=== PATIENT | male | born 1950 | race Caucasian/White ===

== ENCOUNTER 2016-05-28 06:47 | Inpatient (IN) | payer MEDICARE, OTHER ==
[~2016-05-28] VITALS: Ht 182.9 cm; Wt 90.9 kg
[2016-05-28] VITALS (10 sets, daily range): BP systolic 143–211; BP diastolic 85–123; PULSE 73–96; RESP 15–32; TEMP 97.9–98.7; O2SAT 93–98
[2016-05-28] MEDS ORDERED: SODIUM CHLORIDE 0.9% FLUSH 5 ML FLUSH IVF PRN ×2 (07:00→11:00)
[2016-05-28 07:21] LABS: AUTOMATED NEUTROPHIL # 5.5 TH/MM3 (1.8-7.7); BASOPHIL % 0.4 % (0.0-2.0); EOSINOPHIL # 0.1 TH/MM3 (0-0.4); HEMATOCRIT 48.7 % (39.0-51.0); HEMO FLAGS DIFF FINAL; LYMPH % 18.1 % (9.0-44.0); LYMPHOCYTE # 1.4 TH/MM3 (1.0-4.8); MEAN CELL VOLUME 87.6 FL (80.0-100.0); MEAN CORPUSCULAR HEMOGLOBIN 30.9 PG (27.0-34.0); MEAN CORPUSCULAR HGB CONC 35.3 % (32.0-36.0); MONO % 8.9 % (0.0-8.0); NEUT % 71.6 % (16.0-70.0); PLATELET COUNT 210 TH/MM3 (150-450); RED BLOOD COUNT 5.56 MIL/MM3 (4.50-5.90); RED CELL DISTRIBUTION WIDTH 13.2 % (11.6-17.2); WHITE BLOOD COUNT 7.7 TH/MM3 (4.0-11.0)
--- NOTE | 2016-05-28 07:22 | PD ---
HPI Chief Complaint: Neuro Symptoms/ Deficits Time Seen by Provider: 07:19 Travel History International Travel<30 days: No Contact w/Intl Traveler<30days: No Traveled to known affect area: No History of Present Illness HPI 66-year-old male with history of no significant past medical issues, presents to the ER today because he states that he started having slurred speech at 7 PM last night, at first thought it was because of alcohol use, but states that it is still going on this morning. He has had trouble walking due to balance issues, has noticed right arm weakness and right facial droop. He denies any chest pains, trouble breathing, or any other issues. He does not know any exacerbating or alleviating factors. Modifying Factors: None Associated Signs & Symptoms: Slurred speech, right arm weakness, facial droop starting last night Risk Factors: None PFSH Past Medical History Medical History: Denies Significant Hx Past Surgical History Surgical History: No Previous Surgery Social History Alcohol Use: Yes (2-3 vodka drinks/daily) Tobacco Use: Yes (1 ppd) Substance Use: Yes (occasional marijuana) Allergies-Medications (Allergen,Severity, Reaction): Coded Allergies: No Known Allergies (Unverified , 05/28/16) Review of Systems Except as stated in HPI: all other systems reviewed are Neg Physical Exam Narrative GENERAL: Well-nourished, well-developed elderly white male patient in no acute distress. Awake, alert, oriented 3. SKIN: Warm and dry. HEAD: Normocephalic. EYES: No scleral icterus. No injection or drainage. NECK: Supple, trachea midline. CARDIOVASCULAR: Regular rate and rhythm without murmurs, gallops, or rubs. RESPIRATORY: Breath sounds equal bilaterally. No accessory muscle use. GASTROINTESTINAL: Abdomen soft, non-tender, nondistended. MUSCULOSKELETAL: No cyanosis, or edema. BACK: Nontender without obvious deformity. No CVA tenderness. NEUROLOGICAL: Awake and alert, oriented 3. Right facial droop. Right arm pronator drift. Slurred Speech. Data Data Last Documented VS Vital Signs Date Time Temp Pulse Resp B/P Pulse Ox O2 Delivery O2 Flow Rate FiO2 05/28/16 07:57 87 18 187/101 96 Room Air 05/28/16 06:52 98.0 Orders Electrocardiogram (05/28/16 06:59) Prothrombin Time / Inr (Pt) (05/28/16 06:59) Act Partial Throm Time (Ptt) (05/28/16 06:59) Complete Blood Count With Diff (05/28/16 06:59) Comprehensive Metabolic Panel (05/28/16 06:59) Creatine Kinase (Cpk) (05/28/16 06:59) Drug Screen, Random Urine (05/28/16 06:59) Troponin I (05/28/16 06:59) Ct Brain W/O Iv Contrast(Rout) (05/28/16 06:59) Chest, Single Ap (05/28/16 06:59) Ecg Monitoring (05/28/16 06:59) Iv Access Insert/Monitor (05/28/16 06:59) Oximetry (05/28/16 06:59) Sodium Chloride 0.9% Flush (Ns Flush) (05/28/16 07:00) Alcohol (Ethanol) (05/28/16 06:59) Aspirin (Aspirin) (05/28/16 07:45) Admit Order (Ed Use Only) (05/28/16 09:48) Labs Laboratory Tests Test 05/28/16 07:05 White Blood Count 7.7 TH/MM3 Red Blood Count 5.56 MIL/MM3 Hemoglobin 17.2 GM/DL Hematocrit 48.7 % Mean Corpuscular Volume 87.6 FL Mean Corpuscular Hemoglobin 30.9 PG Mean Corpuscular Hemoglobin 35.3 % Concent Red Cell Distribution Width 13.2 % Platelet Count 210 TH/MM3 Mean Platelet Volume 9.1 FL Neutrophils (%) (Auto) 71.6 % Lymphocytes (%) (Auto) 18.1 % Monocytes (%) (Auto) 8.9 % Eosinophils (%) (Auto) 1.0 % Basophils (%) (Auto) 0.4 % Neutrophils # (Auto) 5.5 TH/MM3 Lymphocytes # (Auto) 1.4 TH/MM3 Monocytes # (Auto) 0.7 TH/MM3 Eosinophils # (Auto) 0.1 TH/MM3 Basophils # (Auto) 0.0 TH/MM3 CBC Comment DIFF FINAL Differential Comment Prothrombin Time 11.5 SEC Prothromb Time International 1.0 RATIO Ratio Activated Partial 27.9 SEC Thromboplast Time Sodium Level 137 MEQ/L Potassium Level 3.9 MEQ/L Chloride Level 102 MEQ/L Carbon Dioxide Level 24.6 MEQ/L Anion Gap 10 MEQ/L Blood Urea Nitrogen 14 MG/DL Creatinine 1.05 MG/DL Estimat Glomerular Filtration 70 ML/MIN Rate Random Glucose 312 MG/DL Calcium Level 8.4 MG/DL Total Bilirubin 0.7 MG/DL Aspartate Amino Transf 10 U/L (AST/SGOT) Alanine Aminotransferase 20 U/L (ALT/SGPT) Alkaline Phosphatase 88 U/L Total Creatine Kinase 47 U/L Troponin I 0.02 NG/ML Total Protein 6.9 GM/DL Albumin 3.7 GM/DL Ethyl Alcohol Level LESS THAN 3 MG/DL MDM Medical Decision Making Medical Screen Exam Complete: Yes Emergency Medical Condition: Yes Medical Record Reviewed: Yes Interpretation(s) EKG shows NSR, no ST elevation or depression, and no arrhythmias. No significant T-wave inversions. Laboratory Tests Test 05/28/16 07:05 Hemoglobin 17.2 GM/DL (13.0-17.0) Neutrophils (%) (Auto) 71.6 % (16.0-70.0) Monocytes (%) (Auto) 8.9 % (0.0-8.0) Estimat Glomerular Filtration 70 ML/MIN (>89) Rate Random Glucose 312 MG/DL (74-106) Calcium Level 8.4 MG/DL (8.5-10.1) Aspartate Amino Transf 10 U/L (15-37) (AST/SGOT) Last [address] 05/28/16 0600 Signed Impressions: Service Date/Time: Saturday, May 28, 2016 07:22 - CONCLUSION: Slight atrophic and small vessel ischemic changes without any evidence for acute hemorrhage or mass effect. Zi Joseph MD Chest X-Ray 05/28/16 0659 Signed Impressions: Service Date/Time: Saturday, May 28, 2016 08:06 - CONCLUSION: 1. No acute pulmonary infiltrates 2. Compensated cardiomegaly. Kulwinder Crane MD Differential Diagnosis Facial asymmetry, slurred speech, right arm weaknessCVA versus acute intracranial bleed versus metabolic issues Narrative Course Patient has obvious right facial droop and right arm pronator drift. CAT scan did not show any signs of acute intracranial processes and aspirin was given in the ER. At this point, case is discussed with Dr. Mendez for admission for further evaluation and treatment. Patient is not a TPA candidate since symptoms started last night. Diagnosis Primary Impression: CVA (cerebral vascular accident) Admitting Information Admitting Physician Requests: Admit Rehan Winter MD May 28, 2016 07:22
[2016-05-28 07:32] LABS: APTT (PATIENT) 27.9 SEC (24.3-30.1); PROTHROMBIN TIME - PATIENT 11.5 SEC (9.8-11.6)
[2016-05-28 07:33] LABS: ANION GAP 10 MEQ/L (5-15)
[2016-05-28 07:37] LABS: ALKALINE PHOSPHATASE 88 U/L (45-117); ALT (GPT) 20 U/L (12-78); AST (GOT) 10 U/L (15-37); BICARBONATE 24.6 MEQ/L (21.0-32.0); BLOOD UREA NITROGEN 14 MG/DL (7-18); CHLORIDE 102 MEQ/L (98-107); GLOMERULAR FILTRATION RATE 70 ML/MIN (>89); POTASSIUM 3.9 MEQ/L (3.5-5.1); SODIUM (NA) 137 MEQ/L (136-145); TOTAL BILIRUBIN ADULT 0.7 MG/DL (0.2-1.0)
--- NOTE | 2016-05-28 07:38 | RADRPT ---
EXAM DATE/TIME: 05/28/2016 07:22 [facility] COMPARISON: No previous studies available for comparison. INDICATIONS : Right facial droop with slurred speech. RADIATION DOSE: 56.35 CTDIvol (mGy) MEDICAL HISTORY : None SURGICAL HISTORY : None. ENCOUNTER: Initial ACUITY: 1 day PAIN SCALE: 0/10 LOCATION: cranial TECHNIQUE: Multiple contiguous axial images were obtained of the head. Using automated exposure control and adj ustment of the mA and/or kV according to patient size, radiation dose was kept as low as reasonably a chievable to obtain optimal diagnostic quality images. FINDINGS: There is no evidence for intracranial hemorrhage, mass effect, mass lesions, or edema. The visualize d bony structures appear intact. Slight degree of brain atrophy is seen. Slight periventricular whit e matter changes are seen nonspecific mostly consistent with chronic small vessel ischemic changes. There are no signs of acute infarction for technique. There is also chronic basal ganglia calcificati ons which extend down into the midportion of the mariya. CONCLUSION: Slight atrophic and small vessel ischemic changes without any evidence for acute hemorrhage or mass effect. Zi Joseph MD on May 28, 2016 at 7:35 Board Certified Radiologist. This report was verified electronically.
[2016-05-28 07:41] LABS: CREATINE KINASE 47 U/L (39-308)
[2016-05-28] MEDS ORDERED: ASPIRIN 325 MG TAB PO ONE (07:45)
--- NOTE | 2016-05-28 09:04 | RADRPT ---
EXAM DATE/TIME: 05/28/2016 08:06 [facility] COMPARISON: No previous studies available for comparison. INDICATIONS : Slurred speech, syncope, evaluate for CVA. MEDICAL HISTORY : Smoker. SURGICAL HISTORY : None. ENCOUNTER: Initial ACUITY: 2 days PAIN SCORE: 0/10 LOCATION: Bilateral chest FINDINGS: A single view of the chest demonstrates the lungs to be symmetrically aerated without evidence of mas s, infiltrate or effusion. The heart size is enlarged. The bony structures are grossly intact. There no prior studies for comparison.. CONCLUSION: 1. No acute pulmonary infiltrates 2. Compensated cardiomegaly. Kulwinder Crane MD on May 28, 2016 at 9:02 Board Certified Radiologist. This report was verified electronically.
[2016-05-28] MEDS ORDERED: DEXTROSE 50% IN WATER 50 ML VIAL(D50) IV PUSH PRN (11:00)
[2016-05-28] MEDS ORDERED: GLUCAGON 1 MG/ML VIAL OTHER PRN (11:00)
[2016-05-28] MEDS: SODIUM CHLOR 0.9% 1000 ML INJ 1,000 ML IV SCH (11:33)
[2016-05-28] MEDS: HEPARIN SODIUM - SQ 10,000 UNITS/ML VIAL SQ SCH ×2 (11:34→18:17)
[2016-05-28] MEDS: INSULIN ASPART SUPPLEMENTAL SCALE SQ SCH ×3 (11:34→20:20)
--- NOTE | 2016-05-28 14:35 | RADRPT ---
EXAM DATE/TIME: 05/28/2016 13:11 [facility] COMPARISON: No previous studies available for comparison. INDICATIONS: Slurred speech. Right side weakness. MEDICAL HISTORY: None. SURGICAL HISTORY: Umbilical hernia repair. ENCOUNTER: Initial ACUITY: 1 day PAIN SCORE: 0/10 LOCATION: Cranial TECHNIQUE: Multiplanar, multisequence MRI of the brain was performed without contrast. FINDINGS: Study is abnormal. There is a focal area of restricted diffusion in the brain stem, brachium pontis left side. The supratentorial brain is unremarkable. There is no parenchymal hemorrhage identified. There are no extraaxial fluid collections appreciated. Orbits and paranasal sinuses visualized are unremarkable. CONCLUSION: Focal area of ischemic brain stem, brachium pontis left side measuring 1.3 cm. This has the appearan ce of an evolving brain stem lacunar infarct. There is no parenchymal hemorrhage. Boy Vaca MD FACR on May 28, 2016 at 14:12 Board Certified Radiologist. This report was verified electronically.
--- NOTE | 2016-05-28 14:40 | RADRPT ---
EXAM DATE/TIME: 05/28/2016 13:11 [facility] COMPARISON: MRI BRAIN W/O CONTRAST, May 28, 2016, 13:11. INDICATIONS: Slurred speech. Right side weakness. MEDICAL HISTORY: None. SURGICAL HISTORY: Umbilical hernia repair. ENCOUNTER: Initial ACUITY: 1 day PAIN SCORE: 0/10 LOCATION: Cranial Please note a normal MRA of the brain does not entirely exclude the possibility of a small aneurysm, nor the possibility of distal intracranial vessel disease. TECHNIQUE: 3D time of flight MRA was performed. Source images, multiplanar STS MIP, and 3D volume MIP reconstru ctions were reviewed. FINDINGS: Extensive atherosclerotic vascular disease is evident. There is poor filling of the M1, M2 bifurcatio n on the left. Distal branches are filled. Both anterior cerebellar arteries and right middle cerebellar are identified. The left vertebral is small and diminutive. The right is normal in size. Basilar artery is patent. There is poor visualization of the right internal carotid through the skull base. I am not sure if t hat is artifactual or stenotic. CONCLUSION: 1. Abnormal MRA of the brain as described above. 2. In spite of the findings on the MRI of the brain the basilar artery is well preserved. Boy Vaca MD FACR on May 28, 2016 at 14:34 Board Certified Radiologist. This report was verified electronically.
[2016-05-28] MEDS ORDERED: ENALAPRILAT 1.25 MG/ML VIAL IV PRN (14:45)
[2016-05-28] MEDS ORDERED: LABETALOL HCL 100 MG/20 ML VIAL IV PRN (14:45)
--- NOTE | 2016-05-28 15:43 | HHI.HP ---
[facility] Service [facility] Primary Care Physician No Primary Care Physician Admission Diagnosis CVA Diagnoses: Chief Complaint: Slurred speech, right facial droop, right arm weakness Travel History International Travel<30 Days: No Contact w/Intl Traveler <30 Da: No Traveled to Known Affected Are: No History of Present Illness 66 years old male with no significant past medical history presented to the ED complaining of symptoms of right facial droop, slurred speech, unsteadiness and some weakness in the right arm since yesterday 7 PM. Patient admitted drinking alcohol with his friends therefore he thought he was "tipsy " However later on he noticed that this is something not normal and he came to the ED. Patient denied any headache blurry vision, chest pain short of breath abdominal pain diarrhea or constipation, recent sore throat, he is not on any blood thinner, he doesn't have a history of heart attack coronary artery disease , cardiac arrhythmia, or previous stroke. He smoked one pack per day for over 20 years, he denied illicit drug abuse, he drinks 3 vodkas every day with dinner. In ED patient was given aspirin, CT of the head did not show any hemorrhage Review of Systems All 10 systems reviewed and was positive for what is mentioned in history of present illness otherwise negative Past Family Social History Past Medical History Patient not aware of any previous medical problem Past Surgical History Not aware of previous surgery Allergies: Coded Allergies: No Known Allergies (Unverified , 06/04/16) Family History Coronary artery disease and stroke in his mother and father Social History Smoke one pack per day for over 20 years, drinks 2-3 vodkas every day with dinner, there is mentioning history of marijuana in the ED note patient denied to me Physical Exam Vital Signs Vital Signs Date Time Temp Pulse Resp B/P Pulse Ox O2 Delivery O2 Flow Rate FiO2 05/28/16 15:08 82 17 155/91 96 Room Air 05/28/16 13:59 75 17 180/111 96 Room Air 05/28/16 11:00 90 17 174/87 96 Room Air 05/28/16 10:20 80 17 143/86 96 Room Air 05/28/16 07:57 87 18 187/101 96 Room Air 05/28/16 07:10 85 16 211/100 98 Room Air 05/28/16 06:55 18 96 05/28/16 06:52 98.0 96 15 181/123 93 Physical Exam GENERAL: This is a well-nourished, well-developed patient, in no apparent distress. SKIN: No rashes, warm and dry HEAD: Atraumatic. Normocephalic. EYES: Pupils equal round and reactive. Extraocular motions intact. No scleral icterus. ENT: Nose without bleeding, or drainage, Airway patent. NECK: Trachea midline. Supple CARDIOVASCULAR: Regular rate and rhythm without murmurs, gallops, or rubs. RESPIRATORY: Fair air entry bilaterally. No wheezes, rales, or rhonchi. GASTROINTESTINAL: Abdomen soft, non-tender, nondistended. Positive bowel sounds MUSCULOSKELETAL: Extremities without clubbing, cyanosis, or edema. Pedal pulses appreciated NEUROLOGICAL: Awake and alert oriented 3, cranial nerve intact except right facial droop, right upper extremity 3 out of 5, left upper and bilateral lower extremity 5 out of 5, finger to nose positive on the right side, sensation intact, speech is slightly slurred and grappled but understandable Laboratory Laboratory Tests Test 05/28/16 05/28/16 07:05 11:57 White Blood Count 7.7 Red Blood Count 5.56 Hemoglobin 17.2 Hematocrit 48.7 Mean Corpuscular Volume 87.6 Mean Corpuscular Hemoglobin 30.9 Mean Corpuscular Hemoglobin 35.3 Concent Red Cell Distribution Width 13.2 Platelet Count 210 Mean Platelet Volume 9.1 Neutrophils (%) (Auto) 71.6 Lymphocytes (%) (Auto) 18.1 Monocytes (%) (Auto) 8.9 Eosinophils (%) (Auto) 1.0 Basophils (%) (Auto) 0.4 Neutrophils # (Auto) 5.5 Lymphocytes # (Auto) 1.4 Monocytes # (Auto) 0.7 Eosinophils # (Auto) 0.1 Basophils # (Auto) 0.0 CBC Comment DIFF FINAL Differential Comment Prothrombin Time 11.5 Prothromb Time International 1.0 Ratio Activated Partial 27.9 Thromboplast Time Sodium Level 137 Potassium Level 3.9 Chloride Level 102 Carbon Dioxide Level 24.6 Anion Gap 10 Blood Urea Nitrogen 14 Creatinine 1.05 Estimat Glomerular Filtration 70 Rate Random Glucose 312 Calcium Level 8.4 Total Bilirubin 0.7 Aspartate Amino Transf 10 (AST/SGOT) Alanine Aminotransferase 20 (ALT/SGPT) Alkaline Phosphatase 88 Total Creatine Kinase 47 45 Troponin I 0.02 0.02 Total Protein 6.9 Albumin 3.7 Ethyl Alcohol Level LESS THAN 3 Result Diagram: 05/28/1670405/28/16704 Imaging Last Impressions Head CT 05/28/16658 Signed Impressions: Service Date/Time: Saturday, May 28, 2016 07:22 - CONCLUSION: Slight atrophic and small vessel ischemic changes without any evidence for acute hemorrhage or mass effect. Zi Joseph MD Chest X-Ray 05/28/16658 Signed Impressions: Service Date/Time: Saturday, May 28, 2016 08:06 - CONCLUSION: 1. No acute pulmonary infiltrates 2. Compensated cardiomegaly. Kulwinder Crane MD EKG shows NSR, no ST elevation or depression, and no arrhythmias. No significant T-wave inversions. Assessment and Plan Assessment and Plan 66 years old male presented with right arm weakness, right facial droop and slurred speech Rule out acute ischemic stroke Give aspirin 325, bedrest with HOB, iv fluid Serial NIH scale I ordered MRI/MRA of the brain, 2-D echo, ultrasound of the carotid Neurology consultation FLP in a.m. Permissive hypertension, Vasotec labetalol for blood pressure above 220/110 Heparin subcutaneous every 8 hours Pravachol Cycle cardiac enzyme Her under telemetry rule out underlying cardiac arrhythmia CT head personally reviewed by me no hemorrhage Consult PT OT Consult case coordinator Tobacco abuse counseled Alcohol abuse: Apply CIWA protocol, folate acid and thiamine Hypertension: A low permissive hypertension due to highly suspicious symptom of acute stroke Addendum: I personally reviewed MRI/MRA of the brain positive lacunar infarct in the brainstem MRA Carotid Artery Ultrasound There is moderate calcified atherosclerotic changes involving the right carotid bifurcation. There is elevated velocity in the right internal carotid artery suggestive of moderate stenosis. If clinically indicated, recommend CTA of the carotids. 2. Nonspecific enlarged right neck lymph node. The lymph node measures approximately 1.6 cm. 3. Mild atherosclerotic plaquing at the left carotid bifurcation. No focal high grade hemodynamically significant stenosis. Brain MRI Focal area of ischemic brain stem, brachium pontis left side measuring 1.3 cm. This has the appearance of an evolving brain stem lacunar infarct. There is no parenchymal hemorrhage. Further recommendation per neurology, CTA versus MRA of the neck deferred to neurology Discussed Condition With ED physician patient Physician Certification 2 Midnight Certification Type: Admission for Inpatient Services Order for Inpatient Services The services are ordered in accordance with Medicare regulations or non- Medicare payer requirements, as applicable. In the case of services not specified as inpatient-only, they are appropriately provided as inpatient services in accordance with the 2-midnight benchmark. Estimated LOS (days): 3 days is the estimated time the patient will need to remain in the hospital, assuming treatment plan goals are met and no additional complications. Post-Hospital Plan: Not yet determined Naima Mendez MD May 28, 2016 15:43
--- NOTE | 2016-05-28 16:52 | RADRPT ---
EXAM DATE/TIME: 05/28/2016 15:46 [facility] COMPARISON: No previous studies available for comparison. INDICATIONS : Cerebrovascular accident. MEDICAL HISTORY : Slurred speech, right arm weakness and facial droop starting last night. SURGICAL HISTORY : None. ENCOUNTER: Initial ACUITY: 1 day PAIN SCORE: 0/10 LOCATION: Bilateral neck PEAK SYSTOLIC VELOCITIES (cm/sec): ICA/CCA RATIO: Right: 3.4 Left: 0.9 ICA: Right: 195 Left: 63 CCA: Right: 58 Left: 69 ECA: Right: 83 Left: 91 VERTEBRAL: Right: 45 antegrade Left: 54 antegrade Elevated flow velocities and ICA/CCA ratios have been found to correlate with increased degrees of vessel stenosis, calculated as percentage of diameter relative to a normal segment of distal ICA/CCA FINDINGS: RIGHT CAROTID: Moderate calcified atherosclerotic plaquing at the right carotid bifurcation. There is flow in both t he internal and external vessels. The velocity in the right internal carotid artery is elevated. This is suggestive of a moderate stenosis. Also noted is a prominent lymph node in the right side of the neck measuring 1.6 cm. LEFT CAROTID: Mild atherosclerotic changes. No significant stenosis is visualized. The waveforms are within normal limits. VERTEBRAL ARTERIES: Antegrade flow is seen in both vertebral arteries. MISCELLANEOUS: None. CONCLUSION: 1. There is moderate calcified atherosclerotic changes involving the right carotid bifurcation. There is elevated velocity in the right internal carotid artery suggestive of moderate stenosis. If clinic ally indicated, recommend CTA of the carotids. 2. Nonspecific enlarged right neck lymph node. The lymph node measures approximately 1.6 cm. 3. Mild atherosclerotic plaquing at the left carotid bifurcation. No focal high grade hemodynamically significant stenosis. Kulwinder Crane MD on May 28, 2016 at 16:48 Board Certified Radiologist. This report was verified electronically.
--- NOTE | 2016-05-28 17:16 | EKG ---
Date Performed: 05/28/2016 Time Performed: 06:52:28 PTAGE: 66 years EKG: Sinus rhythm POSSIBLE LEFT ATRIAL ENLARGEMENT INFERIOR MYOCARDIAL INFARCTION ABNORMAL ECG NO PREVIOUS TRACING DOCTOR: Cata Escalera Interpretating Date/Time 05/28/2016 17:14:43
[2016-05-28] MEDS ORDERED: LORazepam 2 MG TAB PO PRN (17:30)
[2016-05-28] MEDS ORDERED: LORazepam 1 MG TAB PO PRN (17:30)
[2016-05-28] MEDS ORDERED: LORazepam 2 MG/ML VIAL IV PUSH PRN ×4 (17:30)
[2016-05-28] MEDS: THIAMINE HCL 100 MG TAB PO SCH (18:17)
--- NOTE | 2016-05-28 18:43 | MB ---
cc: DOUGLAS EDMOND MD DATE OF CONSULTATION 05/28/16 DATE OF 1950 REASON FOR CONSULTATION Stroke. HISTORY OF PRESENT ILLNESS This patient is a 66-year-old man with no significant past medical history as far as he knows. He comes in with right-sided facial droop, right arm and leg weakness. It started the night before admission, he woke up, it was worse. He thought it was due to alcohol use. He is unable to coordinate his hand and arm as well as his legs, still has slurring of speech and right facial droop. Denies chest pain, shortness of breath, nausea, vomiting, diarrhea. PAST MEDICAL HISTORY He has no significant past medical history. PAST SURGICAL HISTORY No surgical history. SOCIAL HISTORY Drinks two to three shots of vodka a day. Smokes a pack a day, some marijuana on occasion. He is . ALLERGIES None. MEDICATIONS None PHYSICAL EXAMINATION VITAL SIGNS: Temperature 98, pulse 82, respiratory rate 17, blood pressure 155/91, satting at 96% room air. NECK: Supple. No bruits. HEART: Regular. LUNGS: Appear clear. He is awake and alert. Pupils reactive. Visual estrada are full. He is dysarthric. Right facial droop, right hemiparesis. There is a 3+ to 4-/5 with right toe upgoing. He is weaker in the full time staff interpreter. He cannot do [id number] on the right but can do it on the left. DTRs are symmetrical. Sensory is normal. Gait is withheld. He is at bedrest. LABORATORY DATA Reviewed. Hemoglobin of 17.2. Chemistries - GFR 70, glucose 312, calcium 8.4, AST 10, ALT 20, cardiac enzymes were negative. Coag panel unremarkable. Toxicology - ethanol level less than three. IMAGING STUDIES MRI of the brain shows focal area of ischemia in the brain stem brachium pontis on the left side measuring 1.3 cm. This is acute, no hemorrhage. His MRA [place] [facility] [place] did not show any significant stenosis especially in the basilar artery, but he did have arteriosclerotic disease, poor filling in M1, M2 on the left, left vertebral is smaller, right is normal in size, basilar artery is patent. Carotid ultrasound was just done. It is not ready to be interpreted thus far unfortunately. IMPRESSION 1. A 66 year-old man with right hemiparesis due to left brainstem infarct 2. Hypertension. 3. Alcohol use. 4. Chronic smoker. RECOMMENDATIONS Put him on full dose aspirin, bedrest today. Start him on a statin but get a lipid panel, blood pressure for systolic over 220, diastolic 110. He can use Vasotec injectable, labetalol p.r.n. Accu-Chek with insulin sliding scale. Get a hemoglobin A1c. SCDs and heparin subcu for DVT prophylaxis. PT, OT, speech therapy evaluation. Risk factors discussed with the patient, watch him for any alcohol withdrawal. He states he has never had withdrawal from alcohol in the past and further recommendations will be made accordingly. MD ROSS Walker/ /4:54 PM /6:27 PM
--- NOTE | 2016-05-28 19:02 | EC ---
Study Study Date:05/28/2016 STUDY CONCLUSIONS SUMMARY LEFT VENTRICLE: The cavity size was normal. Wall thickness was normal. Systolic function was moderately to severely reduced. The estimated ejection fraction was in the range of 30% to 35%. Wall motion was normal; there were no regional wall motion abnormalities. If LV function is below 40, please consider prescribing an ACEI or ARB or document rationale for non-use. PROCEDURE DATA STUDY STATUS: Elective. Procedure: Transthoracic echocardiography. Image quality was good. Scanning was performed from the parasternal, apical, and subcostal acoustic windows. Study completion: The patient tolerated the procedure well. Transthoracic echocardiography. M-mode, complete 2D, complete spectral Doppler, and color Doppler. Patient status: Inpatient. CARDIAC ANATOMY LEFT VENTRICLE: no definate apical thrombus, but can not r/o apical thrombus The cavity size was normal. Wall thickness was normal. Systolic function was moderately to severely reduced. The estimated ejection fraction was in the range of 30% to 35%. Wall motion was normal; there were no regional wall motion abnormalities. AORTIC VALVE: Trileaflet; normal thickness leaflets. Doppler: Transvalvular velocity was within the normal range. There was no stenosis. No regurgitation. AORTA: Aortic root: The aortic root was normal in size. MITRAL VALVE: Structurally normal valve. Doppler: Transvalvular velocity was within the normal range. There was no evidence for stenosis. No regurgitation. LEFT ATRIUM: The atrium was normal in size. RIGHT VENTRICLE: The cavity size was normal. Wall thickness was normal. PULMONIC VALVE: Doppler: Transvalvular velocity was within the normal range. There was no evidence for stenosis. No regurgitation. TRICUSPID VALVE: Structurally normal valve. Doppler: Transvalvular velocity was within the normal range. No regurgitation. PULMONARY ARTERY: The main pulmonary artery was normal-sized. Systolic pressure was within the normal range. RIGHT ATRIUM: The atrium was normal in size. PERICARDIUM: There was no pericardial effusion. SYSTEMIC VEINS: Inferior vena cava: The vessel was normal in size. Prepared and signed by Cm Jones [id number]
[2016-05-28] MEDS: ATORVASTATIN 10 MG TAB PO SCH (20:20)
[2016-05-28] MEDS: SODIUM CHLORIDE 0.9% FLUSH 5 ML FLUSH IVF SCH (20:21)
[2016-05-29] VITALS (7 sets, daily range): BP systolic 115–164; BP diastolic 58–103; PULSE 55–103; RESP 16–30; TEMP 95.5–98; O2SAT 94–98
[2016-05-29] MEDS: SODIUM CHLOR 0.9% 1000 ML INJ 1,000 ML IV SCH (00:52)
[2016-05-29 01:30] LABS: CREATINE KINASE 61 U/L (39-308)
[2016-05-29] MEDS: HEPARIN SODIUM - SQ 10,000 UNITS/ML VIAL SQ SCH ×3 (02:49→18:06)
[2016-05-29] MEDS: INSULIN ASPART SUPPLEMENTAL SCALE SQ SCH ×4 (06:04→21:28)
[2016-05-29 07:32] LABS: PROTHROMBIN TIME - PATIENT 11.2 SEC (9.8-11.6)
[2016-05-29 07:58] LABS: POTASSIUM 3.6 MEQ/L (3.5-5.1)
[2016-05-29 08:00] LABS: INDIRECT BILIRUBIN 0.7 MG/DL (0.0-0.8); TOTAL BILIRUBIN ADULT 0.8 MG/DL (0.2-1.0)
[2016-05-29] MEDS: SODIUM CHLORIDE 0.9% FLUSH 5 ML FLUSH IVF SCH ×2 (10:03→21:29)
[2016-05-29] MEDS: ASPIRIN 325 MG TAB PO SCH (10:03)
[2016-05-29] MEDS: THIAMINE HCL 100 MG TAB PO SCH (10:03)
--- NOTE | 2016-05-29 12:07 | HHI.PR ---
Subjective Remarks Follow-up ischemic stroke 05/29/16-patient seen and examined; stable and no complaint. Objective Vitals Vital Signs Date Time Temp Pulse Resp B/P Pulse Ox O2 Delivery O2 Flow Rate FiO2 05/29/16 08:13 95.5 79 20 154/94 95 05/29/16 00:00 160/100 05/29/16 00:00 97.8 55 16 115/58 98 05/29/16 00:00 97.8 77 30 164/103 96 05/28/16 20:00 89 05/28/16 20:00 98.7 92 32 153/92 93 05/28/16 17:04 98.0 73 18 180/85 97 05/28/16 15:08 82 17 155/91 96 Room Air 05/28/16 13:59 75 17 180/111 96 Room Air I/O 05/28/16 05/28/16 05/28/16 05/29/16 05/29/16 05/29/16 07:00 15:00 23:00 07:00 15:00 23:00 Intake Total 1102 ml Output Total 200 ml Balance -200 ml 1102 ml Intake IV Total 1102 ml Output Urine Total 200 ml Result Diagram: 05/28/16 0705 05/29/16 0642 Imaging Last Impressions Head CT 05/28/16 0659 Signed Impressions: Service Date/Time: Saturday, May 28, 2016 07:22 - CONCLUSION: Slight atrophic and small vessel ischemic changes without any evidence for acute hemorrhage or mass effect. Zi Joseph MD Chest X-Ray 05/28/16 0659 Signed Impressions: Service Date/Time: Saturday, May 28, 2016 08:06 - CONCLUSION: 1. No acute pulmonary infiltrates 2. Compensated cardiomegaly. Kulwinder Crane MD Head Magnetic Resonance Angiography 05/28/16 0000 Signed Impressions: Service Date/Time: Saturday, May 28, 2016 13:11 - CONCLUSION: 1. Abnormal MRA of the brain as described above. 2. In spite of the findings on the MRI of the brain the basilar artery is well preserved. Boy Vaca MD FACR Carotid Artery Ultrasound 05/28/16 0000 Signed Impressions: Service Date/Time: Saturday, May 28, 2016 15:46 - CONCLUSION: 1. There is moderate calcified atherosclerotic changes involving the right carotid bifurcation. There is elevated velocity in the right internal carotid artery suggestive of moderate stenosis. If clinically indicated, recommend CTA of the carotids. 2. Nonspecific enlarged right neck lymph node. The lymph node measures approximately 1.6 cm. 3. Mild atherosclerotic plaquing at the left carotid bifurcation. No focal high grade hemodynamically significant stenosis. Kulwinder Crane MD Brain MRI 05/28/16 0000 Signed Impressions: Service Date/Time: Saturday, May 28, 2016 13:11 - CONCLUSION: Focal area of ischemic brain stem, brachium pontis left side measuring 1.3 cm. This has the appearance of an evolving brain stem lacunar infarct. There is no parenchymal hemorrhage. Boy Vaca MD FACR Objective Remarks GENERAL: NAD with slurred speech and left facial droop SKIN: Warm and dry. HEAD: Normocephalic. EYES: No scleral icterus. No injection or drainage. NECK: Supple, trachea midline. No JVD or lymphadenopathy. CARDIOVASCULAR: Regular rate and rhythm without murmurs, gallops, or rubs. RESPIRATORY: Breath sounds equal bilaterally. No accessory muscle use. GASTROINTESTINAL: Abdomen soft, non-tender, nondistended. MUSCULOSKELETAL: No cyanosis, or edema. RUE 3/5 weakness; RLE 3/5 BACK: Nontender without obvious deformity. No CVA tenderness. A/P Problem List: (1) CVA (cerebral vascular accident) ICD Code: I63.9 Status: Acute Assessment and Plan 66 years old male presented with CVA Rule out acute ischemic stroke On aspirin 325 Pravachol Serial NIH scale MRI/MRA of the brain, 2-D echo, ultrasound of the carotid Brain MRI with Focal area of ischemic brain stem, brachium pontis left side measuring 1.3 cm Neurology ff PT/OT/Speech therapy Permissive hypertension, Vasotec labetalol for blood pressure above 220/ 110...Start Lopressor 50mg BID on 05/30/16 Heparin subcutaneous every 8 hours Tobacco abuse counseled; declined Nicotine patch Impaired fasting glucose: A1c pending; continue with insulin sliding scale Alcohol abuse: Apply CIWA protocol, folate acid and thiamine Hypertension: A low permissive hypertension Kehinde Langley MD May 29, 2016 12:07
[2016-05-29] MEDS: ATORVASTATIN 10 MG TAB PO SCH (21:28)
[2016-05-30] VITALS (8 sets, daily range): BP systolic 131–149; BP diastolic 67–85; PULSE 69–80; RESP 17–20; TEMP 95.8–98.5; O2SAT 95–97
[2016-05-30] MEDS: HEPARIN SODIUM - SQ 10,000 UNITS/ML VIAL SQ SCH ×3 (01:40→18:13)
[2016-05-30] MEDS: INSULIN ASPART SUPPLEMENTAL SCALE SQ SCH ×4 (06:19→21:50)
[2016-05-30 08:35] LABS: PROTHROMBIN TIME - PATIENT 11.1 SEC (9.8-11.6)
[2016-05-30] MEDS: THIAMINE HCL 100 MG TAB PO SCH (08:46)
[2016-05-30] MEDS: LISINOPRIL 5 MG TAB PO SCH (08:46)
[2016-05-30] MEDS: ASPIRIN 325 MG TAB PO SCH (08:46)
[2016-05-30] MEDS: SODIUM CHLORIDE 0.9% FLUSH 5 ML FLUSH IVF SCH ×2 (08:47→21:49)
[2016-05-30] MEDS: METOPROLOL TARTRATE 50 MG TAB PO SCH ×2 (08:47→21:50)
[2016-05-30 09:54] LABS: HEMOGLOBIN A1a 0.9 %; HEMOGLOBIN A1b 2.5 %; HEMOGLOBIN LA1C 2.6 %; HEMOGLOBIN P3 4.7 %
[2016-05-30] MEDS ORDERED: IOHEXOL 350 MG/ML 10 ML VIAL (for RAD DIAG) IV ONE (10:39)
--- NOTE | 2016-05-30 11:15 | HHI.PR ---
Subjective Remarks Follow-up ischemic stroke 05/29/16-patient seen and examined; stable and no complaint. 05/30/16-patient seen and examined, No change and still with left facial droop and slurred speech. States, family will be coming from out of town and therefore patient will rather go home with home health care Objective Vitals Vital Signs Date Time Temp Pulse Resp B/P Pulse Ox O2 Delivery O2 Flow Rate FiO2 05/30/16 07:55 96.3 80 18 136/83 95 05/30/16 07:34 76 05/30/16 06:00 98.5 76 17 145/67 97 05/30/16 01:00 97.1 80 18 149/67 96 05/29/16 22:30 96.9 83 16 160/64 95 05/29/16 20:00 85 05/29/16 16:36 98.0 80 18 138/68 94 05/29/16 13:04 97.1 103 18 140/79 94 I/O 05/29/16 05/29/16 05/29/16 05/30/16 05/30/16 05/30/16 07:00 15:00 23:00 07:00 15:00 23:00 Intake Total 1102 ml 480 ml 850 ml 750 ml Output Total 700 ml Balance 1102 ml 480 ml 850 ml 50 ml Intake Oral 480 ml 850 ml 750 ml IV Total 1102 ml Output Urine Total 700 ml # Voids 4 1 # Bowel Movements 0 0 Result Diagram: 05/28/16 0705 05/29/16 0642 Imaging Last Impressions Head CT 05/28/16 0659 Signed Impressions: Service Date/Time: Saturday, May 28, 2016 07:22 - CONCLUSION: Slight atrophic and small vessel ischemic changes without any evidence for acute hemorrhage or mass effect. Zi Joseph MD Chest X-Ray 05/28/16 0659 Signed Impressions: Service Date/Time: Saturday, May 28, 2016 08:06 - CONCLUSION: 1. No acute pulmonary infiltrates 2. Compensated cardiomegaly. Kulwinder Crane MD Head Magnetic Resonance Angiography 05/28/16 0000 Signed Impressions: Service Date/Time: Saturday, May 28, 2016 13:11 - CONCLUSION: 1. Abnormal MRA of the brain as described above. 2. In spite of the findings on the MRI of the brain the basilar artery is well preserved. Boy Vaca MD FACR Carotid Artery Ultrasound 05/28/16 0000 Signed Impressions: Service Date/Time: Saturday, May 28, 2016 15:46 - CONCLUSION: 1. There is moderate calcified atherosclerotic changes involving the right carotid bifurcation. There is elevated velocity in the right internal carotid artery suggestive of moderate stenosis. If clinically indicated, recommend CTA of the carotids. 2. Nonspecific enlarged right neck lymph node. The lymph node measures approximately 1.6 cm. 3. Mild atherosclerotic plaquing at the left carotid bifurcation. No focal high grade hemodynamically significant stenosis. Kulwinder Crane MD Brain MRI 05/28/16 0000 Signed Impressions: Service Date/Time: Saturday, May 28, 2016 13:11 - CONCLUSION: Focal area of ischemic brain stem, brachium pontis left side measuring 1.3 cm. This has the appearance of an evolving brain stem lacunar infarct. There is no parenchymal hemorrhage. Boy Vcaa MD FACR Objective Remarks GENERAL: NAD with slurred speech and left facial droop SKIN: Warm and dry. HEAD: Normocephalic. EYES: No scleral icterus. No injection or drainage. NECK: Supple, trachea midline. No JVD or lymphadenopathy. CARDIOVASCULAR: Regular rate and rhythm without murmurs, gallops, or rubs. RESPIRATORY: Breath sounds equal bilaterally. No accessory muscle use. GASTROINTESTINAL: Abdomen soft, non-tender, nondistended. MUSCULOSKELETAL: No cyanosis, or edema. RUE 3/5 weakness; RLE 3/5 BACK: Nontender without obvious deformity. No CVA tenderness. A/P Problem List: (1) CVA (cerebral vascular accident) ICD Code: I63.9 Status: Acute Assessment and Plan 66 years old male presented with CVA Rule out acute ischemic stroke On aspirin 325 Pravachol Serial NIH scale MRI/MRA of the brain, 2-D echo, ultrasound of the carotid noted and reviewed pending CTA of the carotids 05/30/16 Brain MRI with Focal area of ischemic brain stem, brachium pontis left side measuring 1.3 cm Neurology ff PT/OT/Speech therapy Discontinue Permissive hypertension and Start Lopressor 50mg BID today Heparin subcutaneous every 8 hours Tobacco abuse counseled; declined Nicotine patch Impaired fasting glucose: A1c pending; continue with insulin sliding scale Alcohol abuse: Apply CIWA protocol, folate acid and thiamine Hypertension: Discontinue permissive hypertension, Lopressor as well as low- dose ramipril History of chronic systolic CHF: No exacerbation; 2-D echo with EF 30-35%, started on ramipril, continue beta ran as well as Statin Discharge Planning Discharge home 05/31/16 with home health care Kehinde Langley MD May 30, 2016 11:14
--- NOTE | 2016-05-30 20:59 | RADRPT ---
EXAM DATE/TIME: 05/30/2016 10:06 [facility] COMPARISON: US CAROTID ARTERIES, May 28, 2016, 15:46. INDICATIONS : Right facial droop, right arm and leg weakness. IV CONTRAST: 50 cc Omnipaque 350 (iohexol) IV RADIATION DOSE: 19.39 CTDIvol (mGy) MEDICAL HISTORY : None SURGICAL HISTORY : None. ENCOUNTER: Initial ACUITY: 2 days PAIN SCALE: 0/10 LOCATION: cranial TECHNIQUE: Volumetric scanning was performed using a multirow detector CT scanner. The data was post processed with a variety of visualization algorithms including full-volume maximum intensity projection, multip lanar sliding thin-slab reformation, curved-planar reformation, and surface-rendering techniques. Us ing automated exposure control and adjustment of the mA and/or kV according to patient size, radiatio n dose was kept as low as reasonably achievable to obtain optimal diagnostic quality images. FINDINGS: AORTIC ARCH: There is a three-vessel origin of the great vessels from the aorta. No evidence of ostial narrowing. RIGHT CAROTID: The common carotid artery is intact. Circumferential soft tissue plaque within the proximal internal carotid artery is seen causing 70% stenosis. The external carotid artery is intact. LEFT CAROTID: The common carotid artery is intact. Mild plaque within the left proximal internal carotid artery. No significant stenosis. The external carotid artery is intact. VERTEBRALS: The vertebral arteries have a symmetric diameter. No stenotic lesions are seen. CONCLUSION: 1. There is a 70% stenosis involving the right proximal internal carotid artery. 2. No significant stenosis of the left internal carotid artery. Kehinde Mckenzie MD on May 30, 2016 at 20:55 Board Certified Radiologist. This report was verified electronically.
[2016-05-30] MEDS: ATORVASTATIN 10 MG TAB PO SCH (21:50)
[2016-05-31] VITALS (8 sets, daily range): BP systolic 114–151; BP diastolic 61–94; PULSE 74–83; RESP 16–20; TEMP 96.1–97.2; O2SAT 94–96
[2016-05-31] MEDS: HEPARIN SODIUM - SQ 10,000 UNITS/ML VIAL SQ SCH ×3 (05:15→18:39)
[2016-05-31] MEDS: INSULIN ASPART SUPPLEMENTAL SCALE SQ SCH ×4 (06:47→20:23)
[2016-05-31 07:48] LABS: PROTHROMBIN TIME - PATIENT 10.9 SEC (9.8-11.6)
[2016-05-31] MEDS: ASPIRIN 325 MG TAB PO SCH (09:21)
[2016-05-31] MEDS: METOPROLOL TARTRATE 50 MG TAB PO SCH ×2 (09:21→20:20)
[2016-05-31] MEDS: LISINOPRIL 5 MG TAB PO SCH (09:22)
[2016-05-31] MEDS: THIAMINE HCL 100 MG TAB PO SCH (09:22)
[2016-05-31] MEDS: SODIUM CHLORIDE 0.9% FLUSH 5 ML FLUSH IVF SCH ×2 (09:24→20:21)
--- NOTE | 2016-05-31 11:24 | HHI.PR ---
Subjective Remarks Follow-up ischemic stroke 05/29/16-patient seen and examined; stable and no complaint. 05/30/16-patient seen and examined, No change and still with left facial droop and slurred speech. States, family will be coming from out of town and therefore patient will rather go home with home health care 05/31/16-patient seen and examined, stable and no acute event overnight. Case discussed with vascular surgeon Dr. Martinez regarding 70% stenosis right ICA Objective Vitals Vital Signs Date Time Temp Pulse Resp B/P Pulse Ox O2 Delivery O2 Flow Rate FiO2 05/31/16 08:00 96.7 83 20 140/80 96 05/31/16 06:03 97.0 76 17 114/61 94 05/31/16 00:00 96.1 78 17 151/94 94 05/30/16 22:11 71 05/30/16 20:00 97.3 79 20 136/71 96 05/30/16 16:00 96.2 70 18 143/85 95 05/30/16 12:16 95.8 69 18 131/81 96 I/O 05/30/16 05/30/16 05/30/16 05/31/16 05/31/16 05/31/16 07:00 15:00 23:00 07:00 15:00 23:00 Intake Total 750 ml 600 ml 480 ml Output Total 700 ml Balance 50 ml 600 ml 480 ml Intake Oral 750 ml 600 ml 480 ml Output Urine Total 700 ml # Voids 4 1 2 # Bowel Movements 0 1 0 0 Result Diagram: 05/28/16 0705 05/29/16 0642 Imaging Last Impressions Neck CTA 05/30/16 0000 Signed Impressions: Service Date/Time: Monday, May 30, 2016 10:06 - CONCLUSION: 1. There is a 70%% stenosis involving the right proximal internal carotid artery. 2. No significant stenosis of the left internal carotid artery. Kehinde Mckenzie MD Head CT 05/28/1659 Signed Impressions: Service Date/Time: Saturday, May 28, 2016 07:22 - CONCLUSION: Slight atrophic and small vessel ischemic changes without any evidence for acute hemorrhage or mass effect. Zi Joseph MD Chest X-Ray 05/28/1659 Signed Impressions: Service Date/Time: Saturday, May 28, 2016 08:06 - CONCLUSION: 1. No acute pulmonary infiltrates 2. Compensated cardiomegaly. Kulwinder Crane MD Head Magnetic Resonance Angiography 05/28/16 Signed Impressions: Service Date/Time: Saturday, May 28, 2016 13:11 - CONCLUSION: 1. Abnormal MRA of the brain as described above. 2. In spite of the findings on the MRI of the brain the basilar artery is well preserved. Boy Vaca MD FACR Carotid Artery Ultrasound 05/28/16 Signed Impressions: Service Date/Time: Saturday, May 28, 2016 15:46 - CONCLUSION: 1. There is moderate calcified atherosclerotic changes involving the right carotid bifurcation. There is elevated velocity in the right internal carotid artery suggestive of moderate stenosis. If clinically indicated, recommend CTA of the carotids. 2. Nonspecific enlarged right neck lymph node. The lymph node measures approximately 1.6 cm. 3. Mild atherosclerotic plaquing at the left carotid bifurcation. No focal high grade hemodynamically significant stenosis. Kulwinder Crane MD Brain MRI 05/28/16 Signed Impressions: Service Date/Time: Saturday, May 28, 2016 13:11 - CONCLUSION: Focal area of ischemic brain stem, brachium pontis left side measuring 1.3 cm. This has the appearance of an evolving brain stem lacunar infarct. There is no parenchymal hemorrhage. Boy Vaca MD FACR Objective Remarks GENERAL: NAD with slurred speech and left facial droop SKIN: Warm and dry. HEAD: Normocephalic. EYES: No scleral icterus. No injection or drainage. NECK: Supple, trachea midline. No JVD or lymphadenopathy. CARDIOVASCULAR: Regular rate and rhythm without murmurs, gallops, or rubs. RESPIRATORY: Breath sounds equal bilaterally. No accessory muscle use. GASTROINTESTINAL: Abdomen soft, non-tender, nondistended. MUSCULOSKELETAL: No cyanosis, or edema. RUE 3/5 weakness; RLE 3/5 BACK: Nontender without obvious deformity. No CVA tenderness. A/P Problem List: (1) CVA (cerebral vascular accident) ICD Code: I63.9 Status: Acute (2) Newly diagnosed diabetes ICD Code: E11.9 Status: Acute (3) Carotid stenosis, right ICD Code: I65.21 Status: Acute (4) Carotid stenosis, symptomatic, with infarction ICD Code: I63.239 Status: Acute (5) Hyperlipidemia ICD Code: E78.5 Status: Acute Assessment and Plan 66 years old male presented with CVA Acute ischemic stroke On aspirin 325 Lipitor 10mg daily Serial NIH scale MRI/MRA of the brain, 2-D echo, ultrasound of the carotid noted and reviewed Brain MRI with Focal area of ischemic brain stem, brachium pontis left side measuring 1.3 cm Neurology ff PT/OT/Speech therapy s/p Permissive hypertension and on Lopressor 50mg BID since 05/30/16 Heparin subcutaneous every 8 hours Right ICA 75% stenosis: Neck CTA noted and review by me with finding of There is a 70%% stenosis involving the right proximal internal carotid artery; for which vascular surgery was consulted and the case was discussed with Dr. Martinez. Continue with current treatment with aspirin, Pravachol. Tobacco abuse counseled; declined Nicotine patch Newly diagnosed diabetes type 2: A1c of 10.2, will start tonight 05/31/16 patient on Levemir 15 units at bedtime and continue with sliding scale insulin. senior data modeler nurse consulted. Hyperlipidemia: Continue Lipitor Alcohol abuse: Apply CIWA protocol, folate acid and thiamine Hypertension: On Lopressor as well as low-dose ramipril History of chronic systolic CHF: No exacerbation; 2-D echo with EF 30-35%, on ramipril, beta ran as well as Statin Discharge Planning Discharge home 05/31/16 with home health care Kehinde Langley MD May 31, 2016 11:24
[2016-05-31] MEDS ORDERED: ENALAPRILAT 1.25 MG/ML VIAL IV PUSH PRN (12:00)
--- NOTE | 2016-05-31 12:29 | HM ---
Date Performed: 05/28/2016 Time Performed: 21:41:00 HOOKUP DATE: 05/28/16 09:41:00 PM Fri ANALYSIS START TIME: 05/28/2016 9:46:00 PM ANALYSIS END TIME: 05/29/2016 9:49:59 PM PATIENT AGE: 66 PATIENT HEIGHT PATIENT WEIGHT DRUG LIST PATIENT DIAGNOSIS TEST NARRATIVE: The patient's average heart rate was 90 BPM. Heart rates greater than 120 B PM were noted 4% of the time. No episodes of bradycardia were noted. No pauses exceeding 2.0 sec onds were noted. 1928 ventricular ectopics, which represented 1% of the total beat count, were no benjamin. The highest ventricular ectopic frequency occurred from 09:00 AM to 10:00 AM Sat. During this time 288 VE(s) occurred. Ventricular ectopics were observed as 1859 isolated beat(s), as 33 couplet( s) and as 1 run(s). Some of the ventricular beats occurred in bigeminal cycles. No supraventricu lar ectopics were noted. In channel 1, a single episode of ST depression (defined as -1.0 mm or m ore) occurred at 11:57:47 PM Fri with a maximum depression of -1.4 mm. No episodes of ST depression (defined as -1.0 mm or more) were noted in channel 2. No episodes of ST depression (defined as -1.0 mm or more) were noted in channel 3. TEST INTERPRETATION: Holter monitor demonstrates normal Sinus rhythm with sinus tachycardia to 141 bpm. Occasional PVCs are noted, in some instances in a bigeminal patte rn. One three beat run of PVCs was also noted. No other significant arrhythmias were seen. No diary a ccompanies Holter tracing. Signed by : Mario Diaz
--- NOTE | 2016-05-31 17:44 | PD.CAR.PN ---
CVT Progress Note Subjective/Hospital Course: Patient seen in full consult dictated Patient has left hemispheric stroke with right-sided jose miguel-paresis, however CTA confirms right sided internal carotid artery stenosis which is hemodynamically significant. This is not an uncommon finding in clearly left-sided stroke was not caused by the carotid artery disease but small vessel disease hypertension or micro- embolism On the other hand right-sided internal carotid artery stenosis in 70% or above range is hemodynamically significant and all things equal should be addressed At this point I will let the patient go home recover and I'll see him in my office in 3-4 weeks at which point we will repeat the CAT scan of the brain and all things equal scheduled and patient for elective right carotid endarterectomy In the meantime patient should be in some sort of platelet inhibitor preferably Plavix and continue on it throughout the surgery Nidhi Duffy Objective: Vital Signs Date Time Temp Pulse Resp B/P Pulse Ox O2 Delivery O2 Flow Rate FiO2 05/31/16 12:00 96.5 74 20 137/78 94 05/31/16 08:00 96.7 83 20 140/80 96 05/31/16 06:03 97.0 76 17 114/61 94 05/31/16 00:00 96.1 78 17 151/94 94 05/30/16 22:11 71 05/30/16 20:00 97.3 79 20 136/71 96 Labs: Laboratory Tests Test 05/31/16 06:51 Prothrombin Time 10.9 SEC (9.8-11.6) Prothromb Time International 1.0 RATIO Ratio Result Diagram: 05/28/16 0705 05/29/16 0642 Sam Urena MD May 31, 2016 17:44
[2016-05-31] MEDS: ATORVASTATIN 10 MG TAB PO SCH (20:20)
[2016-05-31] MEDS ORDERED: INSULIN DETEMIR 100 UNITS/ML VIAL SQ SCH (21:00)
[2016-06-01 00:48] VITALS: BP 138/77; PULSE 70; RESP 18; TEMP 97.6; O2SAT 92
[2016-06-01] MEDS: HEPARIN SODIUM - SQ 10,000 UNITS/ML VIAL SQ SCH ×2 (04:34→12:26)
[2016-06-01 05:16] VITALS: BP 127/79; PULSE 70; RESP 18; TEMP 96; O2SAT 95
[2016-06-01] MEDS: INSULIN ASPART SUPPLEMENTAL SCALE SQ SCH ×2 (05:34→11:00)
[2016-06-01 08:00] VITALS: BP 143/82; PULSE 70; RESP 20; TEMP 96.2; O2SAT 95
[2016-06-01 08:19] LABS: PROTHROMBIN TIME - PATIENT 11.4 SEC (9.8-11.6)
[2016-06-01] MEDS ORDERED: CLOPIDOGREL 75 MG TAB PO SCH (09:00)
[2016-06-01] MEDS ORDERED: ASPIRIN EC 81 MG TABEC PO SCH (09:00)
[2016-06-01] MEDS: SODIUM CHLORIDE 0.9% FLUSH 5 ML FLUSH IVF SCH (09:18)
[2016-06-01] MEDS: THIAMINE HCL 100 MG TAB PO SCH (09:18)
[2016-06-01] MEDS: METOPROLOL TARTRATE 50 MG TAB PO SCH (09:19)
[2016-06-01] MEDS: LISINOPRIL 5 MG TAB PO SCH (09:19)
[2016-06-01 12:00] VITALS: BP 142/84; PULSE 68; RESP 20; TEMP 96.6; O2SAT 96
[2016-06-01] MEDS ORDERED: PLAV75TA29 PO (12:07)
[2016-06-01] MEDS ORDERED: LISI-519 PO (12:07)
[2016-06-01] MEDS ORDERED: VITA100T2 PO (12:07)
[2016-06-01] MEDS ORDERED: LEVEMIR SQ (12:07)
[2016-06-01] MEDS ORDERED: ASPI81TA11 PO (12:07)
[2016-06-01] MEDS ORDERED: LIPI10TA PO (12:07)
[2016-06-01] MEDS ORDERED: METO-309 PO (12:07)
--- NOTE | 2016-06-01 12:17 | HHI.PR ---
Subjective Remarks Follow-up ischemic stroke 05/29/16-patient seen and examined; stable and no complaint. 05/30/16-patient seen and examined, No change and still with left facial droop and slurred speech. States, family will be coming from out of town and therefore patient will rather go home with home health care 05/31/16-patient seen and examined, stable and no acute event overnight. Case discussed with vascular surgeon Dr. Martinez regarding 70% stenosis right ICA 06/01/16-patient seen and examined; no complaint and stable. Ready for discharge home. Objective Vitals Vital Signs Date Time Temp Pulse Resp B/P Pulse Ox O2 Delivery O2 Flow Rate FiO2 06/01/16 08:00 96.2 70 20 143/82 95 06/01/16 05:16 96.0 70 18 127/79 95 06/01/16 00:48 97.6 70 18 138/77 92 05/31/16 20:26 97.2 80 16 132/88 94 05/31/16 17:45 79 05/31/16 17:42 79 05/31/16 16:00 96.2 78 20 138/75 95 I/O 05/31/16 05/31/16 05/31/16 06/01/16 06/01/16 06/01/16 07:00 15:00 23:00 07:00 15:00 23:00 # Voids 2 1 # Bowel Movements 0 0 Result Diagram: 05/28/16 0705 05/29/16 0642 Imaging Last Impressions Neck CTA 05/30/16 0000 Signed Impressions: Service Date/Time: Monday, May 30, 2016 10:06 - CONCLUSION: 1. There is a 70%% stenosis involving the right proximal internal carotid artery. 2. No significant stenosis of the left internal carotid artery. Kehinde Mckenzie MD Head CT 05/28/1659 Signed Impressions: Service Date/Time: Saturday, May 28, 2016 07:22 - CONCLUSION: Slight atrophic and small vessel ischemic changes without any evidence for acute hemorrhage or mass effect. Zi Joseph MD Chest X-Ray 05/28/1659 Signed Impressions: Service Date/Time: Saturday, May 28, 2016 08:06 - CONCLUSION: 1. No acute pulmonary infiltrates 2. Compensated cardiomegaly. Kulwinder Crane MD Head Magnetic Resonance Angiography 05/28/16 0000 Signed Impressions: Service Date/Time: Saturday, May 28, 2016 13:11 - CONCLUSION: 1. Abnormal MRA of the brain as described above. 2. In spite of the findings on the MRI of the brain the basilar artery is well preserved. Boy Vaca MD FACR Carotid Artery Ultrasound 05/28/16 0000 Signed Impressions: Service Date/Time: Saturday, May 28, 2016 15:46 - CONCLUSION: 1. There is moderate calcified atherosclerotic changes involving the right carotid bifurcation. There is elevated velocity in the right internal carotid artery suggestive of moderate stenosis. If clinically indicated, recommend CTA of the carotids. 2. Nonspecific enlarged right neck lymph node. The lymph node measures approximately 1.6 cm. 3. Mild atherosclerotic plaquing at the left carotid bifurcation. No focal high grade hemodynamically significant stenosis. Kulwinder Crane MD Brain MRI 05/28/16 0000 Signed Impressions: Service Date/Time: Saturday, May 28, 2016 13:11 - CONCLUSION: Focal area of ischemic brain stem, brachium pontis left side measuring 1.3 cm. This has the appearance of an evolving brain stem lacunar infarct. There is no parenchymal hemorrhage. Boy Vaca MD FACR Objective Remarks GENERAL: NAD with slurred speech and left facial droop SKIN: Warm and dry. HEAD: Normocephalic. EYES: No scleral icterus. No injection or drainage. NECK: Supple, trachea midline. No JVD or lymphadenopathy. CARDIOVASCULAR: Regular rate and rhythm without murmurs, gallops, or rubs. RESPIRATORY: Breath sounds equal bilaterally. No accessory muscle use. GASTROINTESTINAL: Abdomen soft, non-tender, nondistended. MUSCULOSKELETAL: No cyanosis, or edema. RUE 3/5 weakness; RLE 3/5 BACK: Nontender without obvious deformity. No CVA tenderness. Procedures none A/P Problem List: (1) CVA (cerebral vascular accident) ICD Code: I63.9 Status: Acute (2) Newly diagnosed diabetes ICD Code: E11.9 Status: Acute (3) Carotid stenosis, right ICD Code: I65.21 Status: Acute (4) Carotid stenosis, symptomatic, with infarction ICD Code: I63.239 Status: Acute (5) Hyperlipidemia ICD Code: E78.5 Status: Acute Assessment and Plan 66 years old male presented with CVA Acute ischemic stroke On aspirin 81 and Plavix Lipitor 10mg daily Serial NIH scale MRI/MRA of the brain, 2-D echo, ultrasound of the carotid noted and reviewed Brain MRI with Focal area of ischemic brain stem, brachium pontis left side measuring 1.3 cm Neurology ff PT/OT/Speech therapy s/p Permissive hypertension and on Lopressor 50mg BID since 05/30/16 Heparin subcutaneous every 8 hours Right ICA 75% stenosis: Neck CTA noted and review by me with finding of There is a 70%% stenosis involving the right proximal internal carotid artery; patient will follow vascular surgery outpatient. Start Plavix 75 mg daily and Continue with current treatment with aspirin, Pravachol. Tobacco abuse counseled; declined Nicotine patch Newly diagnosed diabetes type 2: A1c of 10.2, on Levemir 15 units at bedtime and continue with sliding scale insulin. natural resources extension educator nurse consulted. Hyperlipidemia: Continue Lipitor Alcohol abuse: Apply CIWA protocol, folate acid and thiamine Hypertension: On Lopressor as well as low-dose ramipril History of chronic systolic CHF: No exacerbation; 2-D echo with EF 30-35%, on ramipril, beta ran as well as Statin Discharge Planning Discharge home with home health care Kehinde Langley MD Jun 01, 2016 12:17
--- NOTE | 2016-06-01 12:18 | HHI.DS ---
Discharge Summary Admission Date May 28, 2016 at 09:50 Discharge Date: Jun 01, 2016 Admitting Diagnosis CVA (1) CVA (cerebral vascular accident) ICD Code: I63.9 (2) Newly diagnosed diabetes ICD Code: E11.9 (3) Carotid stenosis, right ICD Code: I65.21 (4) Carotid stenosis, symptomatic, with infarction ICD Code: I63.239 (5) Hyperlipidemia ICD Code: E78.5 Procedures none Brief History - From Admission 66 years old male with no significant past medical history presented to the ED complaining of symptoms of right facial droop, slurred speech, unsteadiness and some weakness in the right arm since yesterday 7 PM. Patient admitted drinking alcohol with his friends therefore he thought he was "tipsy " However later on he noticed that this is something not normal and he came to the ED. Patient denied any headache blurry vision, chest pain short of breath abdominal pain diarrhea or constipation, recent sore throat, he is not on any blood thinner, he doesn't have a history of heart attack coronary artery disease , cardiac arrhythmia, or previous stroke. He smoked one pack per day for over 20 years, he denied illicit drug abuse, he drinks 3 vodkas every day with dinner. In ED patient was given aspirin, CT of the head did not show any hemorrhage CBC/BMP: 05/28/16 0705 05/29/16 0642 Imaging Last Impressions Neck CTA 05/30/16 0000 Signed Impressions: Service Date/Time: Monday, May 30, 2016 10:06 - CONCLUSION: 1. There is a 70%% stenosis involving the right proximal internal carotid artery. 2. No significant stenosis of the left internal carotid artery. Kehinde Mckenzie MD Head CT 05/28/16 0659 Signed Impressions: Service Date/Time: Saturday, May 28, 2016 07:22 - CONCLUSION: Slight atrophic and small vessel ischemic changes without any evidence for acute hemorrhage or mass effect. Zi Joseph MD Chest X-Ray 05/28/16 0659 Signed Impressions: Service Date/Time: Saturday, May 28, 2016 08:06 - CONCLUSION: 1. No acute pulmonary infiltrates 2. Compensated cardiomegaly. Kulwinder Crane MD Head Magnetic Resonance Angiography 05/28/16 Signed Impressions: Service Date/Time: Saturday, May 28, 2016 13:11 - CONCLUSION: 1. Abnormal MRA of the brain as described above. 2. In spite of the findings on the MRI of the brain the basilar artery is well preserved. Boy Vaca MD FACR Carotid Artery Ultrasound 05/28/16 Signed Impressions: Service Date/Time: Saturday, May 28, 2016 15:46 - CONCLUSION: 1. There is moderate calcified atherosclerotic changes involving the right carotid bifurcation. There is elevated velocity in the right internal carotid artery suggestive of moderate stenosis. If clinically indicated, recommend CTA of the carotids. 2. Nonspecific enlarged right neck lymph node. The lymph node measures approximately 1.6 cm. 3. Mild atherosclerotic plaquing at the left carotid bifurcation. No focal high grade hemodynamically significant stenosis. Kulwinder Crane MD Brain MRI 05/28/16 Signed Impressions: Service Date/Time: Saturday, May 28, 2016 13:11 - CONCLUSION: Focal area of ischemic brain stem, brachium pontis left side measuring 1.3 cm. This has the appearance of an evolving brain stem lacunar infarct. There is no parenchymal hemorrhage. oBy Vaca MD FACR PE at Discharge GENERAL: NAD with slurred speech and left facial droop SKIN: Warm and dry. HEAD: Normocephalic. EYES: No scleral icterus. No injection or drainage. NECK: Supple, trachea midline. No JVD or lymphadenopathy. CARDIOVASCULAR: Regular rate and rhythm without murmurs, gallops, or rubs. RESPIRATORY: Breath sounds equal bilaterally. No accessory muscle use. GASTROINTESTINAL: Abdomen soft, non-tender, nondistended. MUSCULOSKELETAL: No cyanosis, or edema. RUE 3/5 weakness; RLE 3/5 BACK: Nontender without obvious deformity. No CVA tenderness. Hospital Course Admitted secondary to acute ischemic stroke for which he was started on stroke protocol with a consultation to neurology. Permissive hypertension were initiated. Patient was started on aspirin, Lipitor. He was diagnosed with diabetes type 2 for which she was started on Basal insulin and treated with ISS medium with consultation to development educator nurse . Secondary to his history of alcohol abuse he was seen on rally pack, as well as CIKY protocol.Permissive hypertension was eventually discontinued and patient started on Lopressor 50 mg by mouth twice a day as well as lisinopril 2.5 mg daily secondary to EF of 30-35%. Holter monitoring revealed normal sinus rhythm. Patient was also diagnosed with right ICA 75% stenosis for which vascular surgery was consulted and Plavix 75 mg daily was initiated and also recommended follow-up outpatient. DVT and GI prophylaxis were provided. Pt Condition on Discharge: Stable Discharge Disposition: Disch w/ Home Health Serv Discharge Time: > 30 minutes Discharge Instructions DIET: Follow Instructions for: Heart Healthy Diet Activities you can perform: Regular-No Restrictions Follow up Referrals: Neurology PCP Follow-up - 3-5 Days Vascular Surgery New Medications: Aspirin DR (Aspirin EC) 81 Mg Tabdr 81 MG PO DAILY Prevent Blood Clot #30 TAB Atorvastatin (Lipitor) 10 Mg Tab 10 MG PO HS Cholesterol Management #30 TAB Clopidogrel (Plavix) 75 Mg Tab 75 MG PO DAILY Prevent Blood Clot #30 TAB Insulin Detemir Inj (Levemir Inj) 1,000 unit/ 10 ML Vial 15 UNITS SQ HS Blood Sugar Management #1000 INJECTION Lisinopril (Lisinopril) 5 Mg Tab 2.5 MG PO DAILY Blood Pressure Management #30 TAB Metoprolol Tartrate (Lopressor) 50 Mg Tab 50 MG PO Q12HR Blood Pressure Management #60 TAB Thiamine (Vitamin B-1) 100 Mg Tab 100 MG PO DAILY Alcohol Detox #30 TAB Kehinde Langley MD Jun 01, 2016 12:18
[2016-06-01] MEDS ORDERED: INSU-126 (12:23)
[2016-06-01] MEDS ORDERED: glucometer (12:23)
[2016-06-01] MEDS ORDERED: BLOOD GLUCOSE T1 TES (12:23)
[2016-06-01] MEDS ORDERED: INSU-119 (12:23)
[2016-06-01] MEDS ORDERED: NOVOLOGSS SQ (12:25)
[2016-06-01] MEDS ORDERED: WALKER WHEELS/F1 MIS (14:31)
--- NOTE | 2016-06-01 18:14 | MB ---
cc: VERONICA MARR DATE OF CONSULTATION 05/31/16 REASON FOR CONSULTATION Left hemispheric stroke, right internal carotid artery stenosis, hypertension. HISTORY OF PRESENT ILLNESS This 66-year-old male presents to the emergency room with right-sided facial droop and severe weakness in the right leg and arm consistent with a right-sided but left hemispheric stroke. The patient is worked up and found to have indeed ischemic stroke of the left cerebral hemisphere. He is now two days after the admission doing better. Workup also reveals right internal carotid artery hemodynamically significant stenosis and, hence, the question of further therapy. PAST MEDICAL HISTORY The patient denies any, but he is hypertensive. PAST SURGICAL HISTORY None. SOCIAL HISTORY The patient smokes one packs a day and admittedly drinks too much vodka. He is . ALLERGIES No allergies. REVIEW OF SYSTEMS The patient is now awake, alert, oriented. He still has some facial droop and weakness in the right arm and leg. PHYSICAL EXAMINATION GENERAL: A 66-year-old male in no acute distress. HEENT: Normocephalic. No trauma to the head. Pupils equally reactive. Extraocular muscles appear to be intact. Right-sided facial droop noted. No slurring of speech. NECK: Bilateral carotid pulses and actually I do not hear any bruits. CHEST: Bilateral breath sounds. Mild exploratory wheezing. HEART: Regular rhythm. ABDOMEN: Slightly obese, soft. Active bowel sounds. No rebound or guarding. No masses. EXTREMITIES: The patient has bilateral palpable femoral pulses and dorsalis pedis pulses. Posterior tibial is strong by Doppler. BACK: Normal. NEUROLOGIC EXAMINATION The patient is awake, alert, oriented. Ramesh coma scale is 15. He has +4 motion is his right arm and in his right leg. He lateralizes as above-noted. IMPRESSION/RECOMMENDATIONS I reviewed laboratory and diagnostic procedures. This gentleman indeed has suffered left hemispheric stroke resulting in right-sided hemiparesis. This is slowly resolving, however, the carotid ultrasound followed by CTA reveals significant right internal carotid artery stenosis probably in 70-80% range. Clearly this does not correlate with the side of the stroke. Nonetheless, this is a very significant clinical finding. The majority of strokes are either hypertensive strokes, related to microembolism or small vessel disease of the brain. Only about 30% of strokes are related to carotid artery disease. In this case, the patient has left-sided stroke, however, right-sided carotid stenosis. Because this is hemodynamically significant carotid stenosis in 70 or above percent range, it is essential that the patient has carotid endarterectomy. Carotid endarterectomy should not be performed right now. I will see the patient about 3-4 weeks in my office. We will repeat the CAT scan and then all things equal, schedule elective carotid endarterectomy. At this point, the patient should be discharged on some type of platelet inhibitor preferably Plavix and will follow up with me in my office. I thank you very much for referral. Critical care time 40 minutes. Sam MOLINA /5:40 PM /6:00 PM
--- NOTE | 2016-06-02 10:07 | HHI.FF ---
Face to Face Verification Diagnosis: (1) CVA (cerebral vascular accident) (2) Newly diagnosed diabetes (3) Carotid stenosis, symptomatic, with infarction (4) Hyperlipidemia Physical Therapy Order: Evaluate and Treat Home Health Nursing Order: Signs/symptoms of disease process Medication education-adverse effect I have seen patient Adolfo Boggs on 06/02/16. My clinical findings support the need for the requested home health care services because: Deconditioned w/ increased weakness I certify that my clinical findings support that this patient is homebound because: Poor cardiac reserve Kehinde Langley MD Jun 02, 2016 10:07
[2016-06-04] MEDS ORDERED: METF500T PO (14:49)
[2016-06-04] MEDS ORDERED: BLOOD GLUCOSE M1 KIT (14:49)
[2016-06-04] MEDS ORDERED: LANCETS1 MI1 (14:49)
[2016-06-28] MEDS ORDERED: BLOOD GLUCOSE T1 TES (16:27)
[2016-06-30] MEDS ORDERED: SYMB160A INH ×2 (10:16→13:13)
[2016-06-30] MEDS ORDERED: NOVOLOGSS SQ (10:53)
[2016-06-30] MEDS ORDERED: LEVEMIR SQ (10:53)
[2016-06-30] MEDS ORDERED: LANCETS1 MI1 (13:13)
[2016-07-15] MEDS ORDERED: FLUT1INH INH (09:49)
[2016-07-15] MEDS ORDERED: LEVEMIR SQ (10:05)
[2016-08-11] MEDS ORDERED: ACAR50TA PO ×2 (09:06→09:08)
== END 2016-06-01 14:30 | disposition home or self-care (01) | DRG 65 ==
LOC: NEPC 06:47 → NEDA 09:50 → N05B 16:50
PROVIDERS: ADMIT Hospitalist; ATTEND Hospitalist
DX: I63.9 Cerebral infarction, unspecified (principal); G81.91 Hemiplegia, unspecified affecting right dominant side; I11.0 Hypertensive heart disease with heart failure; I50.22 Chronic systolic (congestive) heart failure; F12.90 Cannabis use, unspecified, uncomplicated; E11.9 Type 2 diabetes mellitus without complications; E78.5 Hyperlipidemia, unspecified; R29.810 Facial weakness; R47.81 Slurred speech; F17.210 Nicotine dependence, cigarettes, uncomplicated; I65.21 Occlusion and stenosis of right carotid artery
CPT/HCPCS: 70450; 70498; 70544; 70551; 71010; 80048; 80053; 80061; 80076; 80320; 82550; 82746; 82948; 83036; 84484; 85025; 85610; 85730; 93005; 93225; 93226; 93306; 93880; J1644; J1815; J7030; Q9967

== ENCOUNTER 2016-06-21 03:28 | Inpatient (IN) | payer MEDICARE, OTHER ==
[~2016-06-21] VITALS: Ht 182.9 cm; Wt 91.8 kg
[2016-06-21] VITALS (28 sets, daily range): BP systolic 138–184; BP diastolic 70–104; PULSE 82–112; RESP 18–32; TEMP 97.9–98.8; O2SAT 89–98
[~2016-06-21 03:28] MED LIST: ASPI81TA11 PO; BLOOD GLUCOSE M1 KIT; BLOOD GLUCOSE T1 TES; INSU-119; INSU-126; LANCETS1 MI1; LEVEMIR SQ; LIPI10TA PO; METF500T PO; METO-309 PO; NOVOLOGSS SQ; PLAV75TA29 PO; VITA100T2 PO; WALKER WHEELS/F1 MIS; glucometer
[2016-06-21] MEDS ORDERED: RESP: ALBUTEROL 2.5 MG/IPRATROPIUM 0.5 MG NEB (SCH) ONE (03:32)
[2016-06-21] MEDS ORDERED: RESP: ALBUTEROL 2.5 MG/IPRATROPIUM 0.5 MG NEB (SCH) INH ONE (03:45)
[2016-06-21] MEDS ORDERED: SODIUM CHLORIDE 0.9% FLUSH 5 ML FLUSH IVF PRN ×2 (03:45→05:15)
--- NOTE | 2016-06-21 03:54 | RADRPT ---
EXAM DATE/TIME: 06/21/2016 03:41 [facility] COMPARISON: CHEST SINGLE AP, May 28, 2016, 8:06. INDICATIONS : Shortness of breath. MEDICAL HISTORY : None. SURGICAL HISTORY : None. ENCOUNTER: Initial ACUITY: 1 day PAIN SCORE: 0/10 LOCATION: Bilateral chest FINDINGS: Cardiomegaly. Clear lungs. Osseous structures are intact. CONCLUSION: No acute disease. Abilio Montenegro MD on June 21, 2016 at 3:52 Board Certified Radiologist. This report was verified electronically.
[2016-06-21 04:06] LABS: AUTOMATED NEUTROPHIL # 6.3 TH/MM3 (1.8-7.7); BASOPHIL % 0.5 % (0.0-2.0); EOSINOPHIL # 0.2 TH/MM3 (0-0.4); EOSINOPHIL % 1.8 % (0.0-4.0); HEMATOCRIT 45.4 % (39.0-51.0); HEMO FLAGS DIFF FINAL; LYMPH % 20.4 % (9.0-44.0); LYMPHOCYTE # 1.8 TH/MM3 (1.0-4.8); MEAN CELL VOLUME 88.3 FL (80.0-100.0); MEAN CORPUSCULAR HEMOGLOBIN 30.5 PG (27.0-34.0); MEAN CORPUSCULAR HGB CONC 34.5 % (32.0-36.0); NEUT % 69.3 % (16.0-70.0); PLATELET COUNT 202 TH/MM3 (150-450); RED BLOOD COUNT 5.14 MIL/MM3 (4.50-5.90); RED CELL DISTRIBUTION WIDTH 13.1 % (11.6-17.2)
[2016-06-21] MEDS ORDERED: RESP: ALBUTEROL 2.5 MG/IPRATROPIUM 0.5 MG NEB (SCH) NEB ONE ×2 (04:15→05:00)
[2016-06-21 04:22] LABS: APTT (PATIENT) 29.5 SEC (24.3-30.1); PROTHROMBIN TIME - PATIENT 11.1 SEC (9.8-11.6)
[2016-06-21 04:32] LABS: ALT (GPT) 25 U/L (12-78); ANION GAP 11 MEQ/L (5-15); AST (GOT) 12 U/L (15-37); BLOOD UREA NITROGEN 12 MG/DL (7-18); CHLORIDE 105 MEQ/L (98-107); GLOMERULAR FILTRATION RATE 73 ML/MIN (>89); MAGNESIUM 1.9 MG/DL (1.5-2.5); POTASSIUM 3.6 MEQ/L (3.5-5.1); SODIUM (NA) 140 MEQ/L (136-145)
[2016-06-21 04:36] LABS: ALKALINE PHOSPHATASE 86 U/L (45-117); TOTAL BILIRUBIN ADULT 0.3 MG/DL (0.2-1.0)
[2016-06-21 04:38] LABS: CREATINE KINASE 57 U/L (39-308)
[2016-06-21] MEDS ORDERED: FUROSEMIDE 40 MG/4 ML VIAL IV PUSH ONE (05:00)
--- NOTE | 2016-06-21 05:09 | PD ---
HPI Chief Complaint: Respiratory Distress Time Seen by Provider: 03:31 Travel History International Travel<30 days: No Contact w/Intl Traveler<30days: No Traveled to known affect area: No History of Present Illness HPI 66 year-old male presents to the emergency department from home by EMS transport for complaint of shortness of breath. Patient states she was up out of bed this morning to go to the bathroom and with exertion had increasing shortness of breath. No prior history of CHF and no prior diagnosis of COPD. Patient does smoke on a daily basis. Patient was recently hospitalized for stroke with right-sided weakness and is convalescing at home during his hospitalization he was identified to have newly diagnosed hypertension dyslipidemia and diabetes along with carotid stenosis and diagnosis of tobaccoism. Patient continues to smoke but has been compliant with his medications and is scheduled for follow-up as an outpatient with neurology, cardiology, and his new primary care provider. Patient denies any recent febrile illness. Patient denies any productive cough or hemoptysis. Patient denies any chest pain or pleuritic chest pain. Patient is not noticed any new swelling or discomfort of the upper extremity's or lower extremities. No prior history of clotting disorder. Pain 0/10 intensity. PFSH Past Medical History Narrative Medical CVA, hypertension, dyslipidemia, diabetes, tobaccoism, carotid stenosis; inguinal herniorrhaphy; nursing notes reviewed Hx Anticoagulant Therapy: Yes Arthritis: No Asthma: No Autoimmune Disease: No Anxiety: No Depression: No Heart Rhythm Problems: No Cancer: No Cardiovascular Problems: No High Cholesterol: No Chemotherapy: No Chest Pain: No Congestive Heart Failure: No COPD: No Cerebrovascular Accident: Yes Diabetes: Yes Patient Takes Glucophage: Yes Endocrine: No GERD: No Genitourinary: No Hiatal Hernia: No Immune Disorder: No Kidney Stones: No Musculoskeletal: No Neurologic: No Psychiatric: No Reproductive: No Respiratory: No Migraines: No Radiation Therapy: No Renal Failure: No Seizures: No Sickle Cell Disease: No Sleep Apnea: No Thyroid Disease: No Ulcer: No Past Surgical History Abdominal Surgery: Yes (hernia INGUNAL) AICD: No Arteriovenous Shunt: No Cardiac Surgery: No Ear Surgery: No Endocrine Surgery: No Eye Surgery: No Genitourinary Surgery: No Gynecologic Surgery: No Insulin Pump: No Joint Replacement: No Oral Surgery: No Pacemaker: No Thoracic Surgery: No Other Surgery: Yes Social History Alcohol Use: Yes (2-3 vodka drinks/daily) Tobacco Use: Yes (1 ppd) Substance Use: Yes (occasional marijuana) Allergies-Medications (Allergen,Severity, Reaction): Coded Allergies: No Known Allergies (Unverified , 06/21/16) Reported Meds & Prescriptions Reported Meds & Active Scripts Active Metformin (Metformin HCl) 500 Mg Tab 500 Mg PO BIDPC With meals Lancets 1 Mis Mis 1 Box .ROUTE 5 TIMES A DAY Blood Glucose Monitoring W/Device (Device) 1 Kit Kit 1 Kit .ROUTE DIRECTED Walker with Front Wheels (Device) 1 Mis Mis 1 Ea .ROUTE DIRECTED Novolog Inj (Insulin Aspart) 100 Unit/Ml Inj 10 Units SQ ACHS SLIDING SCALE [glucometer] Blood Glucose Test Strips 1 Angelic Angelic 1 Ea .ROUTE DIRECTED Easy Comfort Pen [place] 31G X 6 mm (Insulin Pen Needle/Easy Comfort 31G X 6mm) 1 Mis Mis 1 Box .ROUTE DIRECTED [facility] Insulin Syringes/ 31G X 5/16" 1 ml 1 Mis Mis 1 Ea .ROUTE DIRECTED Vitamin B-1 (Thiamine HCl) 100 Mg Tab 100 Mg PO DAILY Lopressor (Metoprolol Tartrate) 50 Mg Tab 50 Mg PO Q12HR Levemir Inj (Insulin Detemir) 1,000 unit/ 10 ML Vial 15 Units SQ HS Lipitor (Atorvastatin Calcium) 10 Mg Tab 10 Mg PO HS Aspirin EC (Aspirin) 81 Mg Tabdr 81 Mg PO DAILY Review of Systems Except as stated in HPI: all other systems reviewed are Neg General / Constitutional: No: Fever, Chills HENT: No: Congestion Cardiovascular: No: Chest Pain or Discomfort Respiratory: Positive: Cough, Shortness of Breath, Wheezing Gastrointestinal: No: Nausea, Vomiting, Abdominal Pain Genitourinary: No: Flank Pain Musculoskeletal: No: Myalgias, Arthralgias Skin: No Rash Neurologic: No: Weakness Psychiatric: No: Anxiety Hematologic/Lymphatic: No: Lymph Node Enlargement Physical Exam Narrative GENERAL: Well-developed well-nourished male in respiratory distress but able to provide history in complete sentences. SKIN: Warm and dry. HEAD: Normocephalic. EYES: No scleral icterus. No injection or drainage. NECK: Supple, trachea midline. No JVD or lymphadenopathy. CARDIOVASCULAR: Regular rate and rhythm without murmurs, gallops, or rubs. RESPIRATORY: Breath sounds equal bilaterally diminished with few x-ray wheezes no rales. No accessory muscle use. GASTROINTESTINAL: Abdomen soft, non-tender, nondistended. MUSCULOSKELETAL: No cyanosis, or edema. BACK: Nontender without obvious deformity. No CVA tenderness. Data Data Last Documented VS Vital Signs Date Time Temp Pulse Resp B/P Pulse Ox O2 Delivery O2 Flow Rate FiO2 06/21/16 05:05 98 BiPAP 35 06/21/16 04:51 6.00 06/21/16 03:51 106 29 154/88 Orders Complete Blood Count With Diff (06/21/16 03:31) Comprehensive Metabolic Panel (06/21/16 03:31) B-Type Natriuretic Peptide (06/21/16 03:31) Act Partial Throm Time (Ptt) (06/21/16 03:31) Prothrombin Time / Inr (Pt) (06/21/16 03:31) Magnesium (Mg) (06/21/16 03:31) Ckmb (Isoenzyme) Profile (06/21/16 03:31) Troponin I (06/21/16 03:31) Iv Access Insert/Monitor (06/21/16 03:31) Electrocardiogram (06/21/16 03:31) Ecg Monitoring (06/21/16 03:31) Oximetry (06/21/16 03:31) Oxygen Administration (06/21/16 03:31) Chest, Single Ap (06/21/16 03:31) Sodium Chloride 0.9% Flush (Ns Flush) (06/21/16 03:45) Albuterol-Ipratropium Neb (Duoneb Neb) (06/21/16 03:45) Albuterol-Ipratropium Neb (Duoneb Neb) (06/21/16 03:32) Albuterol-Ipratropium Neb (Duoneb Neb) (06/21/16 04:15) Furosemide Inj (Lasix Inj) (06/21/16 05:00) Albuterol-Ipratropium Neb (Duoneb Neb) (06/21/16 05:00) Resp Bipap / Cpap Non Invas Vt (06/21/16 ) Admit Order (Ed Use Only) (06/21/16 ) ^ Saline Lock (06/21/16 05:06) Resp Oxygen Antonio C Titrat 1-4 L (06/21/16 ) ^ Notify Dr: Other (06/21/16 05:06) Sodium Chloride 0.9% Flush (Ns Flush) (06/21/16 09:00) Sodium Chloride 0.9% Flush (Ns Flush) (06/21/16 05:15) Labs Laboratory Tests Test 06/21/16 04:00 White Blood Count 9.0 TH/MM3 Red Blood Count 5.14 MIL/MM3 Hemoglobin 15.6 GM/DL Hematocrit 45.4 % Mean Corpuscular Volume 88.3 FL Mean Corpuscular Hemoglobin 30.5 PG Mean Corpuscular Hemoglobin 34.5 % Concent Red Cell Distribution Width 13.1 % Platelet Count 202 TH/MM3 Mean Platelet Volume 8.4 FL Neutrophils (%) (Auto) 69.3 % Lymphocytes (%) (Auto) 20.4 % Monocytes (%) (Auto) 8.0 % Eosinophils (%) (Auto) 1.8 % Basophils (%) (Auto) 0.5 % Neutrophils # (Auto) 6.3 TH/MM3 Lymphocytes # (Auto) 1.8 TH/MM3 Monocytes # (Auto) 0.7 TH/MM3 Eosinophils # (Auto) 0.2 TH/MM3 Basophils # (Auto) 0.0 TH/MM3 CBC Comment DIFF FINAL Differential Comment Prothrombin Time 11.1 SEC Prothromb Time International 1.0 RATIO Ratio Activated Partial 29.5 SEC Thromboplast Time Sodium Level 140 MEQ/L Potassium Level 3.6 MEQ/L Chloride Level 105 MEQ/L Carbon Dioxide Level 24.0 MEQ/L Anion Gap 11 MEQ/L Blood Urea Nitrogen 12 MG/DL Creatinine 1.02 MG/DL Estimat Glomerular Filtration 73 ML/MIN Rate Random Glucose 178 MG/DL Calcium Level 8.5 MG/DL Magnesium Level 1.9 MG/DL Total Bilirubin 0.3 MG/DL Aspartate Amino Transf 12 U/L (AST/SGOT) Alanine Aminotransferase 25 U/L (ALT/SGPT) Alkaline Phosphatase 86 U/L Total Creatine Kinase 57 U/L Troponin I 0.02 NG/ML B-Type Natriuretic Peptide 316 PG/ML Total Protein 6.9 GM/DL Albumin 3.7 GM/DL MDM Medical Decision Making Medical Screen Exam Complete: Yes Emergency Medical Condition: Yes Medical Record Reviewed: Yes Interpretation(s) Last Impressions Chest X-Ray 06/21/16 7930 Signed Impressions: Service Date/Time: Tuesday, June 21, 2016 03:41 - CONCLUSION: No acute disease. Abilio Montenegro MD CBC & BMP Diagram 06/21/16 04:00 Vital Signs Date Time Temp Pulse Resp B/P Pulse Ox O2 Delivery O2 Flow Rate FiO2 06/21/16 05:05 98 BiPAP 35 06/21/16 04:51 95 Simple Mask 6.00 06/21/16 03:51 106 29 154/88 90 Nasal Cannula 2 06/21/16 03:42 103 30 95 Nasal Cannula 2 06/21/16 03:40 108 32 184/104 95 Nasal Cannula 2 06/21/16 03:39 30 95 Nasal Cannula 2 06/21/16 03:32 107 30 182/95 89 06/21/16 03:20 92 2.00 Differential Diagnosis Dyspnea, COPD, CHF, ACS, PE Narrative Course Patient placed on clinical research monitor IV access obtained specimens collected and sent for resulting patient given DuoNeb updrafts had received albuterol 2 en route to the hospital as well as 125 mg of Solu-Medrol Patient requiring ongoing supplemental oxygen support Patient indicating that he feels clinically improved however still demonstrates work of breathing changed to BiPAP Chest x-ray shows no lobar infiltrate no vascular congestion does note cardiomegaly; lab values CBC wnl; metabolic panel wnl';troponin I: not elevated , BNP: 319, elevated Patient's case discussed with [facility] admitting MD will admit to their service Critical Care Narrative Aggregate critical care time was 35 minutes. Time to perform other separately billable procedures was not included in the critical care time. My time did not include minutes spent treating any other patients simultaneously or on activities that did not directly contribute to the patient's treatment. The services I provided to this patient were to treat and/or prevent clinically significant deterioration that could result in: Respiratory failure, I provided critical care services requiring my management, as noted below: Chart data review, documentation time, medication orders and management, vital sign assessments/reviewing monitor data, ordering and reviewing lab tests, ordering and interpreting/reviewing x-rays and diagnostic studies, care of the patient and discussion of the patient with the admitting physicians. Physician Communication Physician Communication discussed with Dr Vu --will admit to [facility] service Diagnosis Primary Impression: Dyspnea Qualified Code: R06.02 - Shortness of breath Additional Impression: COPD exacerbation Admitting Information Admitting Physician Requests: Admit Lily Carrillo MD Jun 21, 2016 05:09
[2016-06-21] MEDS ORDERED: DEXTROSE 50% IN WATER 50 ML VIAL(D50) IV PUSH PRN (05:30)
[2016-06-21] MEDS ORDERED: ACETAMINOPHEN 325 MG TAB PO PRN (05:30)
[2016-06-21] MEDS ORDERED: BISACODYL 10 MG SUPP PR PRN (05:30)
[2016-06-21] MEDS ORDERED: RESP: ALBUTEROL 2.5 MG/IPRATROPIUM 0.5 MG NEB (PRN) NEB (05:30)
[2016-06-21] MEDS ORDERED: GLUCAGON 1 MG/ML VIAL OTHER PRN ×2 (05:30→18:00)
[2016-06-21] MEDS ORDERED: ONDANSETRON HCL 4 MG/2 ML VIAL IVP PRN (05:30)
[2016-06-21] MEDS ORDERED: SODIUM CHLORIDE 0.9% FLUSH 5 ML FLUSH FLUSH PRN (05:30)
[2016-06-21] MEDS ORDERED: MORPHINE SULFATE 4 MG/ML INJ IV PRN (05:30)
[2016-06-21] MEDS ORDERED: ACETAMINOPHEN/HYDROcodone 325 MG/5 MG TAB PO PRN (05:30)
[2016-06-21] MEDS ORDERED: LORazepam 2 MG/ML VIAL IV PUSH PRN ×4 (05:45)
[2016-06-21] MEDS ORDERED: HALOPERIDOL LACTATE 5 MG/ML AMP IM PRN (05:45)
[2016-06-21] MEDS ORDERED: LORazepam 2 MG TAB PO PRN (05:45)
[2016-06-21] MEDS ORDERED: LORazepam 1 MG TAB PO PRN (05:45)
[2016-06-21] MEDS ORDERED: FLUMAZENIL 0.5 MG/5 ML VIAL IV PUSH PRN (05:45)
--- NOTE | 2016-06-21 05:51 | HHI.HP ---
HPI Service [facility] Primary Care Physician Jo Garcia MD Admission Diagnosis dyspnea; exac copd;chf Diagnoses: (1) COPD exacerbation Diagnosis: Principal (2) CVA (cerebral vascular accident) Diagnosis: Principal (3) DM (diabetes mellitus) Diagnosis: Principal (4) Alcohol abuse Diagnosis: Principal (5) Tobacco abuse Diagnosis: Principal Travel History International Travel<30 Days: No Contact w/Intl Traveler <30 Da: No Traveled to Known Affected Are: No History of Present Illness This is a 66-year-old male with a PMH of HTN, DM, Alcohol Abuse, Tobacco Abuse, CHF (Echo EF 30-35%), Right ICA Stenosis and h/o CVA who was brought to the ER by EMS secondary to severe SOB. O2 sat 86% per EMS. S/p Solu-Medrol and DuoNeb w/ some improvement. On arrival, BP 154/88, HR 106, O2 sat 90% on 2L NC. CBC unremarkable. Chemistry essentially unremarkable. BNP 316. Troponin negative. CXR with no acute findings. While in ER, patient with persistent respiratory distress and hypoxia, increased to simple mask and finally placed on BiPAP. Recent admit 05/28-06/01/16 for acute facial droop and slurred speech, found to have Right ICA Stenosis s/p eval by Dr. Urena w/ recommendation for ASA/Plavix and outpatient follow up. Review of Systems Except as stated in HPI: all other systems reviewed are Neg ROS: 14 point review of systems otherwise negative. Past Family Social History Past Medical History PMH: HTN, DM, Alcohol Abuse, Tobacco Abuse, CHF (Echo EF 30-35%), Right ICA Stenosis and h/o CVA Past Surgical History PAST SURGICAL HISTORY: Hernia Repair Allergies: Coded Allergies: No Known Allergies (Unverified , 06/21/16) Family History PAST FAMILY HISTORY: Reviewed. No h/o DM or CAD Social History PAST SOCIAL HISTORY: 2-3 vodka drinks per day. Smokes 1ppd. Occasional Marijuana. Physical Exam Vital Signs Vital Signs Date Time Temp Pulse Resp B/P Pulse Ox O2 Delivery O2 Flow Rate FiO2 3/20/17 05:30 104 30 138/70 97 BiPAP 35 06/21/16 05:29 35 06/21/16 05:10 98 35 06/21/16 05:05 98 BiPAP 35 06/21/16 04:51 95 Simple Mask 6.00 06/21/16 03:51 106 29 154/88 90 Nasal Cannula 2 06/21/16 03:42 103 30 95 Nasal Cannula 2 06/21/16 03:40 108 32 184/104 95 Nasal Cannula 2 06/21/16 03:39 30 95 Nasal Cannula 2 06/21/16 03:32 107 30 182/95 89 06/21/16 03:20 92 2.00 Physical Exam PE: GENERAL: Middle-aged white male in no acute distress. Currently on BiPAP HEENT: PERRLA, EOMI. No scleral icterus or conjunctival pallor. No lid lag or facial droop. CARDIOVASCULAR: Regular rate and rhythm. No obvious murmurs to auscultation. No chest tenderness to palpation. RESPIRATORY: No obvious rhonchi, occasional wheezing. Clear to auscultation. Breath sounds decreased at bases bilaterally. GASTROINTESTINAL: Abdomen soft, non-tender, nondistended. BS normal. MUSCULOSKELETAL: Extremities without clubbing, cyanosis, or edema. No obvious deformities. NEUROLOGICAL: Awake, alert and oriented x4. No focal neurologic deficits. Moving both upper and lower extremities spontaneously. Laboratory Laboratory Tests Test 06/21/16 04:00 White Blood Count 9.0 Red Blood Count 5.14 Hemoglobin 15.6 Hematocrit 45.4 Mean Corpuscular Volume 88.3 Mean Corpuscular Hemoglobin 30.5 Mean Corpuscular Hemoglobin 34.5 Concent Red Cell Distribution Width 13.1 Platelet Count 202 Mean Platelet Volume 8.4 Neutrophils (%) (Auto) 69.3 Lymphocytes (%) (Auto) 20.4 Monocytes (%) (Auto) 8.0 Eosinophils (%) (Auto) 1.8 Basophils (%) (Auto) 0.5 Neutrophils # (Auto) 6.3 Lymphocytes # (Auto) 1.8 Monocytes # (Auto) 0.7 Eosinophils # (Auto) 0.2 Basophils # (Auto) 0.0 CBC Comment DIFF FINAL Differential Comment Prothrombin Time 11.1 Prothromb Time International 1.0 Ratio Activated Partial 29.5 Thromboplast Time Sodium Level 140 Potassium Level 3.6 Chloride Level 105 Carbon Dioxide Level 24.0 Anion Gap 11 Blood Urea Nitrogen 12 Creatinine 1.02 Estimat Glomerular Filtration 73 Rate Random Glucose 178 Calcium Level 8.5 Magnesium Level 1.9 Total Bilirubin 0.3 Aspartate Amino Transf 12 (AST/SGOT) Alanine Aminotransferase 25 (ALT/SGPT) Alkaline Phosphatase 86 Total Creatine Kinase 57 Troponin I 0.02 B-Type Natriuretic Peptide 316 Total Protein 6.9 Albumin 3.7 Result Diagram: 06/21/1639906/21/16399 Assessment and Plan Problem List: (1) COPD exacerbation ICD Code: J44.1 Status: Acute (2) CVA (cerebral vascular accident) ICD Code: I63.9 Status: Acute (3) DM (diabetes mellitus) ICD Code: E11.9 Status: Acute (4) Tobacco abuse ICD Code: Z72.0 Status: Acute (5) Alcohol abuse ICD Code: F10.10 Status: Acute Assessment and Plan A/P: 1. COPD: Chronic Respiratory Failure w/ Acute Exacerbation and Hypoxia, O2 sat 86-87% on RA per EMS, S/p Solu-Medrol and DuoNeb w/ transient improvement, while in ER increased O2 requirements w/ increased work of breathing, now on BIPAP. Continue w/ Solu-Medrol, DuoNeb, Symbicort, Mucinex. Wean off BIPAP as tolerated. CXR w/ no acute findings, images reviewed by me. 2. CVA: Recent admit 05/28-06/01/16 for CVA, found to have Right ICA Stenosis, s /p eval by Dr. Urena, will resume home ASA/Plavix and Statin. 3. DM: Sliding scale w/ Accu-Cheks, resume Levemir. 4. Alcohol Abuse: Seizure Precautions, CIWA, MVT/Thiamine/Folate replacement. 5. Tobacco Abuse: Pt counselled. Ativan prn. 6. DVT Prophylaxis: SCD/Teds. 7. Social work for d/c planning as needed. 8. Case discussed w/ ER physician at length. Physician Certification 2 Midnight Certification Type: Admission for Inpatient Services Order for Inpatient Services The services are ordered in accordance with Medicare regulations or non- Medicare payer requirements, as applicable. In the case of services not specified as inpatient-only, they are appropriately provided as inpatient services in accordance with the 2-midnight benchmark. Estimated LOS (days): 2 days is the estimated time the patient will need to remain in the hospital, assuming treatment plan goals are met and no additional complications. Post-Hospital Plan: Not yet determined Sophia Vu MD Jun 21, 2016 05:51
[2016-06-21] MEDS ORDERED: methylPREDNISolone SOD SUCC 40 MG/1 ML VIAL IV PUSH SCH ×2 (06:00→21:00)
[2016-06-21] MEDS ORDERED: METOPROLOL TARTRATE 25 MG TAB PO PRN (06:15)
[2016-06-21] MEDS ORDERED: INSULIN HUMAN REGULAR 1,000 UNITS/10 ML VIAL SQ PRN (06:15)
[2016-06-21] MEDS ORDERED: SODIUM CHLORID 0.9% 500 ML IV SCH (06:15)
[2016-06-21] MEDS ORDERED: LACTATED RINGER'S 1000 ML IV SCH (06:15)
[2016-06-21] MEDS: RESP: ALBUTEROL 2.5 MG/IPRATROPIUM 0.5 MG NEB (SCH) NEB ×4 (07:24→20:01)
[2016-06-21] MEDS ORDERED: SODIUM CHLORIDE 0.9% FLUSH 5 ML FLUSH IVF SCH (09:00)
[2016-06-21] MEDS: FOLIC ACID 1 MG TAB PO SCH (09:38)
[2016-06-21] MEDS: CLOPIDOGREL 75 MG TAB PO SCH (09:38)
[2016-06-21] MEDS: guaiFENesin E.R. 600 MG TAB PO SCH ×2 (09:38→21:17)
[2016-06-21] MEDS: MULTIVITAMINS/MINERALS THERAPEUTIC TAB PO SCH (09:38)
[2016-06-21] MEDS: ASPIRIN EC 81 MG TABEC PO SCH (09:38)
[2016-06-21] MEDS: METOPROLOL TARTRATE 50 MG TAB PO SCH ×2 (09:39→21:17)
[2016-06-21] MEDS: THIAMINE HCL 100 MG TAB PO SCH (09:39)
[2016-06-21] MEDS: SODIUM CHLORIDE 0.9% FLUSH 5 ML FLUSH FLUSH SCH ×2 (09:39→21:17)
--- NOTE | 2016-06-21 10:46 | HHI.PR ---
Subjective Remarks Follow-up COPD exacerbation/respiratory failure 06/21/16-patient seen and examined, reports improvement of shortness of breath and denies any chest pain. Objective Vitals Vital Signs Date Time Temp Pulse Resp B/P Pulse Ox O2 Delivery O2 Flow Rate FiO2 06/21/16 09:17 94 Nasal Cannula 2.00 06/21/16 07:00 94 Nasal Cannula 2.00 06/21/16 07:00 98.2 112 20 152/89 94 06/21/16 05:30 104 30 138/70 97 BiPAP 35 06/21/16 05:29 35 06/21/16 05:10 98 35 06/21/16 05:05 98 BiPAP 35 06/21/16 04:51 95 Simple Mask 6.00 06/21/16 03:51 106 29 154/88 90 Nasal Cannula 2 06/21/16 03:42 103 30 95 Nasal Cannula 2 06/21/16 03:40 108 32 184/104 95 Nasal Cannula 2 06/21/16 03:39 30 95 Nasal Cannula 2 06/21/16 03:32 107 30 182/95 89 06/21/16 03:20 92 2.00 Result Diagram: 06/21/16 0400 06/21/16 0400 Imaging Last Impressions Chest X-Ray 06/21/16 0331 Signed Impressions: Service Date/Time: Tuesday, June 21, 2016 03:41 - CONCLUSION: No acute disease. Abilio Montenegro MD Objective Remarks GENERAL: NAD and left facial drop SKIN: Warm and dry. HEAD: Normocephalic. EYES: No scleral icterus. No injection or drainage. NECK: Supple, trachea midline. No JVD or lymphadenopathy. CARDIOVASCULAR: Regular rate and rhythm without murmurs, gallops, or rubs. RESPIRATORY: Breath sounds equal bilaterally. No accessory muscle use. GASTROINTESTINAL: Abdomen soft, non-tender, nondistended. MUSCULOSKELETAL: No cyanosis, or edema. Right-sided weakness BACK: Nontender without obvious deformity. No CVA tenderness. A/P Problem List: (1) COPD exacerbation ICD Code: J44.1 Status: Acute (2) CVA (cerebral vascular accident) ICD Code: I63.9 Status: Acute (3) DM (diabetes mellitus) ICD Code: E11.9 Status: Acute (4) Tobacco abuse ICD Code: Z72.0 Status: Acute (5) Alcohol abuse ICD Code: F10.10 Status: Acute Assessment and Plan 66-year-old man with 1. COPD: Chronic Respiratory Failure w/ Acute Exacerbation and Hypoxia. Continue w/ Solu-Medrol, DuoNeb, Symbicort, Mucinex and add Spiriva. 2. CVA: Recent admit 05/28-06/01/16 for CVA, found to have Right ICA Stenosis, s /p eval by Dr. Urena, continue home ASA/Plavix and Statin. PT consult to treat and eval 3. DM: Sliding scale w/ Accu-Cheks, continue Levemir. 4. Alcohol Abuse: Seizure Precautions, CIWA, MVT/Thiamine/Folate replacement. 5. Tobacco Abuse: Pt counselled. Ativan prn. 6. DVT Prophylaxis: SCD/Teds. Kehinde Langley MD Jun 21, 2016 10:46
[2016-06-21] MEDS: INSULIN ASPART SUPPLEMENTAL SCALE SQ SCH ×2 (11:00→16:00)
--- NOTE | 2016-06-21 14:27 | EKG ---
Date Performed: 06/21/2016 Time Performed: 03:35:48 PTAGE: 66 years EKG: Sinus rhythm POSSIBLE LEFT ATRIAL ENLARGEMENT POSSIBLE INFERIOR MYOCARDIAL INFARCTION BORDERLINE ECG INTERPRETATI ON BASED ON A DEFAULT AGE OF 40 YEARS PREVIOUS TRACING : 06/21/2016 03.31 Compared to prior tracing no significant change DOCTOR: Nilay Zeng Interpretating Date/Time 06/21/2016 14:26:19
[2016-06-21] MEDS ORDERED: DEXTROSE 50% IN WATER 50 ML VIAL(D50) IV PRN (18:00)
[2016-06-21] MEDS ORDERED: INSULIN DETEMIR 100 UNITS/ML VIAL SQ SCH (21:00)
[2016-06-21] MEDS ORDERED: INSULIN ASPART SUPPLEMENTAL SCALE SQ SCH (21:00)
[2016-06-21] MEDS ORDERED: ATORVASTATIN 10 MG TAB PO SCH (21:00)
[2016-06-21] MEDS: [UNRECOGNIZED DRUG - OTHER] SQ SCH (21:16)
[2016-06-21] MEDS: BUDESONIDE-FORMOTEROL 160/4.5 MCG INHALER INH SCH ×2 (21:18→21:21)
[2016-06-22] VITALS (10 sets, daily range): BP systolic 127–138; BP diastolic 76–82; PULSE 80–111; RESP 18; TEMP 97.9; O2SAT 94–95
[2016-06-22] MEDS: [UNRECOGNIZED DRUG - OTHER] SQ SCH (06:14)
[2016-06-22 06:30] LABS: AUTOMATED NEUTROPHIL # 15.5 TH/MM3 (1.8-7.7); BASOPHIL % 0.1 % (0.0-2.0); HEMATOCRIT 43.5 % (39.0-51.0); HEMO FLAGS DIFF FINAL; LYMPH % 5.7 % (9.0-44.0); MEAN CELL VOLUME 88.8 FL (80.0-100.0); MEAN CORPUSCULAR HEMOGLOBIN 29.7 PG (27.0-34.0); MEAN CORPUSCULAR HGB CONC 33.4 % (32.0-36.0); MONO % 3.9 % (0.0-8.0); NEUT % 90.3 % (16.0-70.0); PLATELET COUNT 219 TH/MM3 (150-450); WHITE BLOOD COUNT 17.2 TH/MM3 (4.0-11.0)
[2016-06-22 07:32] LABS: ALKALINE PHOSPHATASE 75 U/L (45-117); ALT (GPT) 22 U/L (12-78); ANION GAP 9 MEQ/L (5-15); AST (GOT) 5 U/L (15-37); BICARBONATE 26.3 MEQ/L (21.0-32.0); BLOOD UREA NITROGEN 21 MG/DL (7-18); CHLORIDE 104 MEQ/L (98-107); GLOMERULAR FILTRATION RATE 65 ML/MIN (>89); POTASSIUM 4.4 MEQ/L (3.5-5.1); SODIUM (NA) 139 MEQ/L (136-145); TOTAL BILIRUBIN ADULT 0.3 MG/DL (0.2-1.0)
[2016-06-22] MEDS: BUDESONIDE-FORMOTEROL 160/4.5 MCG INHALER INH SCH (08:09)
[2016-06-22] MEDS: CLOPIDOGREL 75 MG TAB PO SCH (08:10)
[2016-06-22] MEDS: METOPROLOL TARTRATE 50 MG TAB PO SCH (08:10)
[2016-06-22] MEDS: SODIUM CHLORIDE 0.9% FLUSH 5 ML FLUSH FLUSH SCH (08:11)
[2016-06-22] MEDS: MULTIVITAMINS/MINERALS THERAPEUTIC TAB PO SCH (08:11)
[2016-06-22] MEDS: guaiFENesin E.R. 600 MG TAB PO SCH (08:11)
[2016-06-22] MEDS: THIAMINE HCL 100 MG TAB PO SCH (08:11)
[2016-06-22] MEDS: ASPIRIN EC 81 MG TABEC PO SCH (08:11)
[2016-06-22] MEDS: FOLIC ACID 1 MG TAB PO SCH (08:11)
[2016-06-22] MEDS: RESP: ALBUTEROL 2.5 MG/IPRATROPIUM 0.5 MG NEB (SCH) NEB (08:31)
--- NOTE | 2016-06-22 08:32 | HHI.PR ---
Subjective Remarks Follow-up COPD exacerbation/respiratory failure 06/21/16-patient seen and examined, reports improvement of shortness of breath and denies any chest pain. 06/22/16-patient seen and examined, denies any shortness of breath or wheezing, he has no chest pain. Patient states he is ready for discharge home. Objective Vitals Vital Signs Date Time Temp Pulse Resp B/P Pulse Ox O2 Delivery O2 Flow Rate FiO2 06/22/16 06:00 111 06/22/16 05:09 98 06/22/16 04:00 80 06/22/16 03:45 97.9 86 18 127/82 95 06/22/16 03:30 95 Nasal Cannula 2.00 06/22/16 03:05 85 06/22/16 02:37 83 06/22/16 01:00 89 06/22/16 00:38 85 06/21/16 23:30 95 Nasal Cannula 2.00 06/21/16 23:11 Room Air 06/21/16 23:11 97.9 85 20 144/82 93 06/21/16 23:11 89 06/21/16 22:00 92 06/21/16 21:00 102 06/21/16 20:01 93 06/21/16 20:00 93 Room Air 06/21/16 20:00 108 06/21/16 20:00 98.0 111 18 159/90 93 06/21/16 19:00 112 06/21/16 18:00 111 06/21/16 17:00 108 06/21/16 16:00 108 06/21/16 16:00 98.8 109 20 146/80 93 06/21/16 16:00 93 Nasal Cannula 2.00 06/21/16 15:00 93 06/21/16 14:00 98 06/21/16 13:00 90 06/21/16 12:00 82 06/21/16 11:00 98.5 82 20 159/95 94 06/21/16 11:00 94 Nasal Cannula 2.00 06/21/16 11:00 86 06/21/16 10:00 104 06/21/16 09:17 94 Nasal Cannula 2.00 06/21/16 09:00 108 I/O 06/21/16 06/21/16 06/21/16 06/22/16 06/22/16 06/22/16 07:00 15:00 23:00 07:00 15:00 23:00 Intake Total 1680 ml 240 ml Output Total 450 ml Balance 1680 ml -210 ml Intake Oral 1680 ml 240 ml Output Urine Total 450 ml # Voids 5 # Bowel Movements 0 Result Diagram: 06/22/16 0600 06/22/16 0600 Imaging Last Impressions Chest X-Ray 06/21/16 0331 Signed Impressions: Service Date/Time: Tuesday, June 21, 2016 03:41 - CONCLUSION: No acute disease. Abilio Montenegro MD Objective Remarks GENERAL: NAD and left facial drop SKIN: Warm and dry. HEAD: Normocephalic. EYES: No scleral icterus. No injection or drainage. NECK: Supple, trachea midline. No JVD or lymphadenopathy. CARDIOVASCULAR: Regular rate and rhythm without murmurs, gallops, or rubs. RESPIRATORY: Breath sounds equal bilaterally. No accessory muscle use. GASTROINTESTINAL: Abdomen soft, non-tender, nondistended. MUSCULOSKELETAL: No cyanosis, or edema. Right-sided weakness BACK: Nontender without obvious deformity. No CVA tenderness. Procedures none A/P Problem List: (1) COPD exacerbation ICD Code: J44.1 Status: Acute (2) CVA (cerebral vascular accident) ICD Code: I63.9 Status: Chronic (3) DM (diabetes mellitus) ICD Code: E11.9 Status: Chronic (4) Tobacco abuse ICD Code: Z72.0 Status: Chronic (5) Alcohol abuse ICD Code: F10.10 Status: Chronic Assessment and Plan 66-year-old man with 1. COPD: Chronic Respiratory Failure w/ Acute Exacerbation and Hypoxia. Resolved, history to by mouth prednisone and continue Continue w/ DuoNeb, Symbicort, Mucinex and Spiriva. 2. CVA: Recent admit 05/28-06/01/16 for CVA, found to have Right ICA Stenosis, s /p eval by Dr. Urena, continue home ASA/Plavix and Statin. PT consult to treat and eval 3. DM: Sliding scale w/ Accu-Cheks, continue Levemir. 4. Alcohol Abuse: Seizure Precautions, CIWA, MVT/Thiamine/Folate replacement. 5. Tobacco Abuse: Pt counselled. Ativan prn. 6. DVT Prophylaxis: SCD/Teds. 7. Leukocytosis: Secondary to steroids Discharge Planning discharge home Kehinde Langley MD Jun 22, 2016 08:32
[2016-06-22] MEDS ORDERED: PLAV75TA29 PO (08:37)
[2016-06-22] MEDS ORDERED: IPRA17I INH (08:37)
[2016-06-22] MEDS ORDERED: SPIRCAP INH (08:37)
[2016-06-22] MEDS ORDERED: SYMB160A INH (08:37)
[2016-06-22] MEDS ORDERED: PRED10 PO (08:37)
--- NOTE | 2016-06-22 08:38 | HHI.FF ---
Face to Face Verification Diagnosis: (1) COPD exacerbation (2) CVA (cerebral vascular accident) Physical Therapy Order: Evaluate and Treat Home Health Nursing Order: Signs/symptoms of disease process I have seen patient Adolfo Boggs on 06/22/16. My clinical findings support the need for the requested home health care services because: Patient has SOB Deconditioned w/ increased weakness I certify that my clinical findings support that this patient is homebound because: Poor cardiac reserve Kehinde Langley MD Jun 22, 2016 08:38
--- NOTE | 2016-06-22 08:41 | HHI.DS ---
Discharge Summary Admission Date Jun 21, 2016 at 05:09 Discharge Date: Jun 22, 2016 Admitting Diagnosis dyspnea; exac copd;chf (1) COPD exacerbation ICD Code: J44.1 (2) CVA (cerebral vascular accident) ICD Code: I63.9 (3) DM (diabetes mellitus) ICD Code: E11.9 (4) Tobacco abuse ICD Code: Z72.0 (5) Alcohol abuse ICD Code: F10.10 Procedures none Brief History - From Admission This is a 66-year-old male with a PMH of HTN, DM, Alcohol Abuse, Tobacco Abuse, CHF (Echo EF 30-35%), Right ICA Stenosis and h/o CVA who was brought to the ER by EMS secondary to severe SOB. O2 sat 86% per EMS. S/p Solu-Medrol and DuoNeb w/ some improvement. On arrival, BP 154/88, HR 106, O2 sat 90% on 2L NC. CBC unremarkable. Chemistry essentially unremarkable. BNP 316. Troponin negative. CXR with no acute findings. While in ER, patient with persistent respiratory distress and hypoxia, increased to simple mask and finally placed on BiPAP. Recent admit 05/28-06/01/16 for acute facial droop and slurred speech, found to have Right ICA Stenosis s/p eval by Dr. Urena w/ recommendation for ASA/Plavix and outpatient follow up. CBC/BMP: 06/22/16 0600 06/22/16 0600 Significant Findings Laboratory Tests Test 06/21/16 06/22/16 04:00 06:00 Estimat Glomerular Filtration 73 ML/MIN (>89) 65 ML/MIN (>89) Rate Random Glucose 178 MG/DL 255 MG/DL (74-106) (74-106) Aspartate Amino Transf 12 U/L (15-37) 5 U/L (15-37) (AST/SGOT) B-Type Natriuretic Peptide 316 PG/ML (0-100) White Blood Count 17.2 TH/MM3 (4.0-11.0) Neutrophils (%) (Auto) 90.3 % (16.0-70.0) Lymphocytes (%) (Auto) 5.7 % (9.0-44.0) Neutrophils # (Auto) 15.5 TH/MM3 (1.8-7.7) Blood Urea Nitrogen 21 MG/DL (7-18) Imaging Last Impressions Chest X-Ray 06/21/16 0331 Signed Impressions: Service Date/Time: Tuesday, June 21, 2016 03:41 - CONCLUSION: No acute disease. Abilio Montenegro MD PE at Discharge GENERAL: NAD and left facial drop SKIN: Warm and dry. HEAD: Normocephalic. EYES: No scleral icterus. No injection or drainage. NECK: Supple, trachea midline. No JVD or lymphadenopathy. CARDIOVASCULAR: Regular rate and rhythm without murmurs, gallops, or rubs. RESPIRATORY: Breath sounds equal bilaterally. No accessory muscle use. GASTROINTESTINAL: Abdomen soft, non-tender, nondistended. MUSCULOSKELETAL: No cyanosis, or edema. Right-sided weakness BACK: Nontender without obvious deformity. No CVA tenderness. Hospital Course Patient admitted for COPD exacerbation and started on Solu-Medrol which was subsequently switched to by mouth prednisone prior to discharge. He also responded well to Spiriva,Symbicort and DuoNeb scheduled and when necessary the oxygen saturation was maintained above 92%. He was continued on his treatment for other chronic medical conditions. Patient was started on CIWA protocol and rally pack. He was advised on tobacco cessation. DVT and GI prophylaxis were provided. PT was consulted. All vital signs were monitored and patient conditions improved prior to discharge. Pt Condition on Discharge: Stable Discharge Disposition: Disch w/ Home Health Serv Discharge Time: > 30 minutes Discharge Instructions DIET: Follow Instructions for: Diabetic Diet Activities you can perform: Regular-No Restrictions Follow up Referrals: PCP Follow-up - 1 Week New Medications: Ipratropium HFA 12.9 GM Inh (Atrovent HFA 12.9 GM Inh) 17 Mcg/Act Aer 2 PUFF INH Q6HR PRN SHORTNESS OF BREATH #1 Ref 0 INHALER Budesonide-Formoterol Inh (Symbicort Inh) 160-4.5 Mcg/Act Aero 2 PUFF INH Q12HR Breathing Treatment #1 Ref 3 INHALER Clopidogrel (Plavix) 75 Mg Tab 75 MG PO DAILY Prevent Blood Clot #30 TAB Prednisone (Prednisone) 10 Mg Tab 10 MG PO DAILY Infection #3 TAB Tiotropium Inh (Spiriva Handihaler) 18 Mcg Cap 18 MCG INH DAILY Breathing Treatment #1 Ref 3 CAP Continued Medications: Aspirin DR (Aspirin EC) 81 Mg Tabdr 81 MG PO DAILY Prevent Blood Clot #30 TAB Atorvastatin (Lipitor) 10 Mg Tab 10 MG PO HS Cholesterol Management #30 TAB Insulin Aspart Inj (Novolog Inj) 100 Unit/Ml Inj 10 UNITS SQ ACHS SLIDING SCALE Blood Sugar Management #1000 Ref 3 INJECTION Insulin Detemir Inj (Levemir Inj) 1,000 unit/ 10 ML Vial 15 UNITS SQ HS Blood Sugar Management #1000 INJECTION Metformin (Metformin) 500 Mg Tab 500 MG PO BIDPC With meals Blood Sugar Management #60 Ref 0 TAB Metoprolol Tartrate (Lopressor) 50 Mg Tab 50 MG PO Q12HR Blood Pressure Management #60 TAB Thiamine (Vitamin B-1) 100 Mg Tab 100 MG PO DAILY Alcohol Detox #30 TAB Kehinde Langley MD Jun 22, 2016 08:41
[2016-06-22] MEDS ORDERED: predniSONE 10 MG TAB PO SCH (09:00)
[2016-06-22] MEDS ORDERED: TIOTROPIUM BROMIDE 18 MCG INH INH SCH (09:00)
[2016-06-28] MEDS ORDERED: BLOOD GLUCOSE T1 TES (16:27)
[2016-06-30] MEDS ORDERED: SYMB160A INH ×2 (10:16→13:13)
[2016-06-30] MEDS ORDERED: LEVEMIR SQ (10:53)
[2016-06-30] MEDS ORDERED: NOVOLOGSS SQ (10:53)
[2016-06-30] MEDS ORDERED: LANCETS1 MI1 (13:13)
[2016-07-15] MEDS ORDERED: FLUT1INH INH (09:49)
[2016-07-15] MEDS ORDERED: LEVEMIR SQ (10:05)
[2016-08-11] MEDS ORDERED: ACAR50TA PO ×2 (09:06→09:08)
== END 2016-06-22 09:30 | disposition home health service (06) | DRG 189 ==
LOC: NEPC 03:28 → NEDA 05:09 → HCIN 07:51
PROVIDERS: ADMIT Hospitalist; ATTEND Hospitalist
PROC: 5A09357 Assistance with Respiratory Ventilation, Less than 24 Consecutive Hours, Continuous Positive Airway Pressure (ICD-10-PCS; principal; 2016-06-21)
DX: J96.21 Acute and chronic respiratory failure with hypoxia (principal); I69.351 Hemiplegia and hemiparesis following cerebral infarction affecting right dominant side; J44.1 Chronic obstructive pulmonary disease with (acute) exacerbation; I50.9 Heart failure, unspecified; I11.0 Hypertensive heart disease with heart failure; E11.9 Type 2 diabetes mellitus without complications; D72.829 Elevated white blood cell count, unspecified; E78.5 Hyperlipidemia, unspecified; I65.21 Occlusion and stenosis of right carotid artery; F10.10 Alcohol abuse, uncomplicated; F12.90 Cannabis use, unspecified, uncomplicated; F17.210 Nicotine dependence, cigarettes, uncomplicated; T38.0X5A Adverse effect of glucocorticoids and synthetic analogues, initial encounter; Z79.4 Long term (current) use of insulin
CPT/HCPCS: 71010; 80053; 82550; 82948; 83735; 83880; 84484; 85025; 85610; 85730; 93005; 94002; 94640; 94664; J1815; J1940; J2920; J7512

== ENCOUNTER 2016-06-28 12:16 | Inpatient (IN) | payer MEDICARE, OTHER ==
[~2016-06-28] VITALS: Ht 182.9 cm; Wt 96.4 kg
[~2016-06-28 12:16] MED LIST changes: -ACAR50TA PO; -AMIO200T PO; -ASPI81TA11 PO; -BLOOD GLUCOSE T1 TES; -DOCU1CAP39 PO; -FLUT1INH INH; -INSU-119; -INSU-126; -IPRA17I INH; -LANCETS1 MI1; -LEVEMIR SQ; -LIPI10TA PO; -LOSA50TA PO; -METF1000 PO; -METF500T PO; -METO-309 PO; -METO100T PO; -NORC5TAB PO; -NOVOLOGSS SQ; -OXYC-392 PO; -PLAV75TA29 PO; -PRED10 PO; -SPIRCAP INH; -SYMB160A INH; -THERM PO; -VITA100T2 PO; -WALKER WHEELS/F1 MIS; -glucometer
[2016-06-30] MEDS ORDERED: LOSA50TA PO (10:16)
[2016-06-30] MEDS ORDERED: METO100T PO (10:53)
[2016-06-30] MEDS ORDERED: METF1000 PO (10:53)
[2016-06-30] MEDS ORDERED: ASPI81TA11 PO (13:12)
[2016-06-30] MEDS ORDERED: LIPI10TA PO (13:12)
[2016-06-30] MEDS ORDERED: PLAV75TA29 PO (13:13)
[2016-06-30] MEDS ORDERED: BLOOD GLUCOSE T1 TES (13:13)
[2016-07-27] MEDS ORDERED: DOCU1CAP39 PO (09:55)
[2016-07-27] MEDS ORDERED: AMIO200T PO (09:55)
[2016-07-27] MEDS ORDERED: THERM PO (09:58)
[2016-08-11] MEDS ORDERED: ACAR50TA PO (09:08)
[2016-09-28] VITALS (12 sets, daily range): BP systolic 122–176; BP diastolic 72–108; PULSE 68–109; RESP 18–20; TEMP 96.1–98.9; O2SAT 92–98
[2016-09-28] MEDS ORDERED: SODIUM CHLORID 0.9% 500 ML IV PRN (06:15)
[2016-09-28] MEDS ORDERED: INSULIN HUMAN REGULAR 1,000 UNITS/10 ML VIAL SQ PRN (06:15)
[2016-09-28] MEDS ORDERED: METOPROLOL TARTRATE 25 MG TAB PO PRN (06:15)
[2016-09-28] MEDS ORDERED: LACTATED RINGER'S 1000 ML IV PRN (06:15)
[2016-09-28] MEDS ORDERED: POVIDONE IODINE 5% (ANTISEPSIS KIT) 4 APPLICATIONS EACH NARE PRN (06:15)
[2016-09-28] MEDS ORDERED: CHLORHEXIDINE GLUCONATE 2 % 1 PACK (2 CLOTHS) TOPICAL PRN (06:15)
--- NOTE | 2016-09-28 06:50 | HHI.HP ---
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 This was in May 2016. During the w/u of this he was found to have R carotid stenosis >80%. He has no neuro symptoms from this. In the interim since his CVA he underwent CABG from which he has recovered well. Past/Family/Social History Past Medical History CAD COPD DM Hypercholesterolemia HTN Past Surgical History CABG hernia Social History ex smoker Family History NC Home Medications Active Scripts Acarbose 50 Mg Tab50 Mg PO TID #90 TAB Ref 1 Prov:Jo Garcia MD 08/11/16 Multiple Vitamins W/ Minerals (Thera M Plus)1 Tab1 Tab PO DAILY PRN (multi vitamin) 1 Day Prov:Marzena Montano 07/27/16 Amiodarone 200 Mg [id number] Mg PO Q12HR #28 TAB Ref 0 Prov:Marzena Montano 07/27/16 Clopidogrel (Plavix)75 Mg Tab75 Mg PO DAILY #30 TAB Ref 3 Prov:Jo Garcia MD 06/30/16 Atorvastatin (Lipitor)10 Mg Tab10 Mg PO HS #30 TAB Ref 3 Prov:Jo Garcia MD 06/30/[address] (Aspirin EC)81 Mg Tabdr81 Mg PO DAILY #30 TAB Ref 3 Prov:Jo Garcia MD 06/30/16 Metoprolol Tartrate 100 Mg Qzk948 Mg PO BID #60 TAB Ref 3 Prov:Jo Garcia MD 06/30/16 Metformin 1,000 Mg Tab1,000 Mg PO BIDPC #60 TAB Ref 3 With meals Prov:Jo Garcia MD 06/30/16 Reported Medications Losartan 50 Mg Tab50 Mg PO DAILY #30 TAB Ref 0 06/30/16 Discontinued Reported Medications Hydrocodone-Acetaminophen (Devine)5-325 mg Tab1 Tab PO Q6H PRN (PAIN) Ref 0 07/27/16 Budesonide-Formoterol Inh (Symbicort Inh)160-4.5 Mcg/Act Aero2 Puff INH Q12HR Ref 0 07/23/16 Discontinued Scripts Docusate Sodium (Dok)100 Mg Dtn673 Mg PO BID #60 CAP Prov:Marzena Montano 07/27/16 Blood Glucose Test Strips 1 Angelic Angelic #90 EA .ROUTE DIRECTED Ref 3 Prov:Jo Garcia MD 06/30/16 Blood Glucose Monitoring W/Device 1 Kit Kit #1 KIT .ROUTE DIRECTED Ref 0 Prov:Jo Garcia MD 06/04/16 Lancets 1 Mis Mis #1 BOX .ROUTE 5 TIMES A DAY Ref 3 Prov:Jo Garcia MD 06/30/16 [glucometer] No Conflict Check #1 Prov:Kehinde Langley MD 06/01/16 Insulin Pen Needle/Easy Comfort 31G X 6mm (Easy Comfort Pen [place] 31G X 6 mm) 1 Mis Mis #1 BOX .ROUTE DIRECTED Ref 0 Prov:Kehinde Langley MD 06/01/16 [employer] Insulin Syringes/ 31G X 5/16" 1 ml 1 Mis Mis #100 EA .ROUTE DIRECTED Ref 3 Prov:Kehinde Langley MD 06/01/16 Coded Allergies: No Known Allergies (Unverified , 09/28/16) Review of Systems Constitutional: DENIES: Fever, Chills, Change in appetite Respiratory: DENIES: Cough, Shortness of breath Cardiovascular: DENIES: Chest pain Physical Exam Vitals/I&O Date Time Temp Pulse Resp B/P Pulse Ox O2 Delivery O2 Flow Rate FiO2 09/28/16 06:20 96.1 109 18 176/108 96 Neuro: alert, conversant, no focal deficits HEENT: NC/AT; anicteric sclera Neck: no JVD; no rashes on surgical site (RIGHT side) Heart: reg rate, no M Lungs: clear bilaterally Abdomen: NT Vascular: palpable UE pulses Extremities: [place], 5/5 strength Hct 42 plt 272 INR 1.0 creatinine 1.0 Duplex from June: R ICA 80%, L ICA 50% B mode suggests it is proximal R ICA disease Assessment and Plan Plan Asymptomatic high grade RIGHT carotid stenosis Plan for RIGHT carotid endarterectomy Pt aware of risks and benefits. No issues that would preclude surgery. To OR. Operative site marked. CVICU post-op. Discharge Planning 1-2 days post-op Jae Cage MD Sep 28, 2016 06:50
[2016-09-28] MEDS ORDERED: SUGAMMADEX SODIUM 200 MG/2 ML VIAL IV PUSH ONE ×2 (06:53)
[2016-09-28] MEDS ORDERED: fentaNYL CITRATE 250 MCG/5 ML AMP ONE ×2 (06:53→09:55)
[2016-09-28] MEDS ORDERED: HYDROmorphone HCL 2 MG TAB PO PRN (07:00)
[2016-09-28] MEDS ORDERED: DEXTROSE 50% IN WATER 50 ML VIAL(D50) IV PRN (07:00)
[2016-09-28] MEDS ORDERED: MULTIVITAMINS/MINERALS THERAPEUTIC TAB PO PRN (07:00)
[2016-09-28] MEDS ORDERED: GLUCAGON 1 MG/ML VIAL OTHER PRN (07:00)
[2016-09-28] MEDS ORDERED: MIDAZOLAM HCL 2 MG/2 ML VIAL ONE (07:03)
[2016-09-28] MEDS ORDERED: FAMOTIDINE 20 MG/2 ML VIAL ONE (07:03)
[2016-09-28] MEDS ORDERED: DEXAMETHASONE SOD PHOS 4 MG/ML VIAL ONE (07:03)
[2016-09-28] MEDS ORDERED: ceFAZolin 2 GM PREMIX 50 ML ONE (07:18)
[2016-09-28] MEDS ORDERED: HEPARIN SODIUM - IV 10,000 UNITS/10 ML VIAL ONE ×3 (07:18→08:08)
[2016-09-28] MEDS ORDERED: PROTAMINE SULFATE 50 MG/5 ML VIAL ONE (07:19)
[2016-09-28] MEDS ORDERED: THROMBIN (TOPICAL) 20,000 UNIT SPRAY KIT ONE ×2 (07:19→07:44)
[2016-09-28] MEDS ORDERED: BUPIVACAINE HCL PF 0.5% 30 ML VIAL INFIL ONE (08:51)
[2016-09-28] MEDS: METOPROLOL TARTRATE 100 MG TAB PO SCH ×3 (09:00→20:27)
--- NOTE | 2016-09-28 09:23 | HHI.PR ---
cc: Shiva Horton MD Immediate Post Op Note Procedure Date: Sep 28, 2016 Pre Op Diagnosis: Asymptomatic high grade RIGHT carotid stenosis Post Op Diagnosis: Asymptomatic high grade RIGHT carotid stenosis Surgeon: Jae Cage Human Resources Associate(s): . Procedure: R CEA Findings: proximal ICA stenosis, successful CEA and patch Additional Information: awoke neuro intact Complications: none apparent Specimen(s) removed: none for pathology Estimated blood loss: 100mL Anesthesia: General Drains: None Fluids: 1500mL IVF Patient to: Other (CVICU) Patient Condition: Good Implant/Devices: SEE IMPLANT LOG (if applicable) Date/Time of Procedure: SEE SURGICAL CARE RECORD Jae Cage MD Sep 28, 2016 09:23
[2016-09-28] MEDS: LOSARTAN 50 MG TAB PO SCH (11:25)
[2016-09-28] MEDS: MULTIVITAMINS/MINERALS THERAPEUTIC TAB PO SCH (11:25)
[2016-09-28] MEDS: CLOPIDOGREL 75 MG TAB PO SCH (11:25)
[2016-09-28] MEDS: AMIODARONE 200 MG TAB PO SCH ×2 (11:25→20:27)
[2016-09-28] MEDS: ASPIRIN EC 81 MG TABEC PO SCH (11:26)
[2016-09-28] MEDS ORDERED: PHENYLEPH/NS 1000 MCG/10 ML SYR IV ONE (12:00)
[2016-09-28] MEDS ORDERED: NORMOSOL R INJ 1,000 ML IV ONE (12:00)
[2016-09-28] MEDS ORDERED: PROPOFOL 200 MG/20 ML AMP IV ONE (12:00)
[2016-09-28] MEDS ORDERED: PHENYLEPHRINE HCL 10 MG/ML VIAL IV ONE (12:00)
[2016-09-28] MEDS ORDERED: LACTATED RINGER'S 1000 ML INJ 1,000 ML IV ONE (12:00)
[2016-09-28] MEDS ORDERED: SODIUM CHLORID 0.9% 500 ML INJ 500 ML IV ONE (12:00)
[2016-09-28] MEDS ORDERED: ONDANSETRON HCL 4 MG/2 ML VIAL IV PUSH ONE (12:00)
[2016-09-28] MEDS: INSULIN ASPART SUPPLEMENTAL SCALE SQ SCH ×2 (16:00→22:16)
--- NOTE | 2016-09-28 16:24 | PD.CONS ---
[facility] Service Critical Care Medicine Consult Requested By Dr. Cage Reason for Consult S/P right CEA Primary Care Physician Jo Garcia MD History of Present Illness This is a 66-year-old gentleman today underwent a right carotid endarterectomy for 80% stenosis. The patient's past medical history is significant for undergoing a CABG July 2016 during the recovery process approximately 7 weeks ago the patient had experienced a left hemispheric CVA, with resultant right- sided weakness and right-sided facial droop. The patient underwent right CEA under general endotracheal with minimal EBL, but required intraoperatively phenylephrine infusion to maintain optimal blood pressure. Critical care medicine has been consulted to assist with postoperative management. Review of Systems Respiratory: COMPLAINS OF: Cough, Wheezing (COPD) Past Family Social History Allergies: Coded Allergies: No Known Allergies (Unverified , 09/28/16) Past Medical History Hypertension, dyslipidemia, COPD, diabetes mellitus, left hemispheric CVA Past Surgical History CABG Reported Medications see MAR Active Ordered Medications see MAR Family History Patient unable to provide at this time Social History 1PPD smoker for greater than 54 years, quit 2 months ago, denies alcohol or illicit drug use Physical Exam Vital Signs Vital Signs Date Time Temp Pulse Resp B/P Pulse Ox O2 Delivery O2 Flow Rate FiO2 09/28/16 15:00 98.3 68 20 151/84 92 09/28/16 15:00 68 09/28/16 14:00 69 09/28/16 14:00 69 20 128/92 94 09/28/16 13:00 70 09/28/16 13:00 70 20 127/78 97 09/28/16 12:00 71 09/28/16 12:00 98.9 71 20 122/74 97 09/28/16 11:00 72 18 126/76 98 09/28/16 11:00 72 09/28/16 10:00 98.8 77 18 141/88 98 09/28/16 10:00 77 09/28/16 06:20 96.1 109 18 176/108 96 Physical Exam GENERAL: Gentleman appearing older than stated age with the noted right facial droop, pleasant, pleasantly conversant SKIN: Warm and dry. HEAD: Atraumatic. Normocephalic. EYES: Pupils equal and round. No scleral icterus. No injection or drainage. ENT: No nasal bleeding or discharge. Mucous membranes pink and moist. NECK: Trachea midline. No JVD. Right neck incision with Dermabond, no losing or redness noted CARDIOVASCULAR: Normal rate, regular rhythm. RESPIRATORY: No accessory muscle use. Mild expiratory wheezing noted. Breath sounds equal bilaterally. O2 via nasal cannula, GASTROINTESTINAL: Abdomen soft, non-tender, nondistended. No guarding. MUSCULOSKELETAL: Extremities without clubbing, cyanosis, or edema. No obvious deformities. NEUROLOGICAL: Awake and alert. RASS 0. No gross focal/sensory deficits. Follows commands in all 4 extremities. Laboratory Laboratory Tests Test 09/28/16 06:22 Blood Type B POSITIVE Antibody Screen NEGATIVE Septic Shock Reassessment Heart: Regular rate and rhythm Peripheral Pulses: Bounding Right Radial Bounding Left Radial Capillary Refill: Brisk Assessment and Plan Assessment and Plan ASSESSMENT 1. S/P Right CEA POD 0 2. Hypertension 3. Dyslipidemia 4 .S/P CABG (07/19) 5. Diabetes mellitus 6. Cardiomyopathy 7. Pharyngitis 2/2 endotracheal intubation 8. COPD PLAN -Neurochecks per ICU protocol -Ofirmev 1 g every 6 hours PRN , VAS pain scale 710 -Maintain systolic blood pressure between 555608 mmHg -Continue antihypertensive medications -Resume Plavix, aspirin per vascular surgery management -EF 35%-out of bed to chair -09/23 EKGold inferior wall DC, moderate T-wave abnormality -Glucose monitoring per ICU protocol, maintain glucose less than 180 -Initiate incentive spirometry, every hour while awake -Bronchodilators when necessary for wheezing -Resume heart healthy diet Level 3 Code Status Full Discussed Condition With TASSEL SNIPPER at bedside Kendra Iverson MD Sep 28, 2016 16:24
[2016-09-28] MEDS ORDERED: ACETAMINOPHEN 1000 MG/100 ML VIAL IV PRN (16:30)
[2016-09-28] MEDS ORDERED: PHENOL 1.4% SOLN 180 ML BTL OROPHARYNG PRN (16:30)
[2016-09-28] MEDS ORDERED: ATORVASTATIN 10 MG TAB PO SCH (21:00)
[2016-09-29] VITALS: BP 148/92; PULSE 76; RESP 18; O2SAT 95
[2016-09-29 03:59] LABS: HEMATOCRIT 35.4 % (39.0-51.0); MEAN CELL VOLUME 82.6 FL (80.0-100.0); MEAN CORPUSCULAR HEMOGLOBIN 28.5 PG (27.0-34.0); MEAN CORPUSCULAR HGB CONC 34.5 % (32.0-36.0); PLATELET COUNT 196 TH/MM3 (150-450); RED BLOOD COUNT 4.28 MIL/MM3 (4.50-5.90); RED CELL DISTRIBUTION WIDTH 15.9 % (11.6-17.2); REVIEW FLAG FINAL; WHITE BLOOD COUNT 12.3 TH/MM3 (4.0-11.0)
[2016-09-29 04:00] VITALS: BP 143/84; PULSE 82; RESP 18; TEMP 97.5; O2SAT 93
[2016-09-29 04:25] LABS: BICARBONATE 27.1 MEQ/L (21.0-32.0)
--- NOTE | 2016-09-29 07:35 | PD.VS.PN ---
Subjective POD #: 1 Procedure(s): R CEA Subjective/Hospital Course looks great, sitting in chair, neuro intact denies BOWMAN Objective Vitals/I&O Date Time Temp Pulse Resp B/P Pulse Ox O2 Delivery O2 Flow Rate FiO2 09/29/16 04:00 93 Room Air 09/29/16 04:00 82 09/29/16 04:00 97.5 82 18 143/84 93 09/29/16 01:00 95 Room Air 09/29/16 00:00 76 09/29/16 00:00 76 18 148/92 95 09/29/16 00:00 95 Nasal Cannula 2.00 09/28/16 20:00 72 09/28/16 20:00 97.7 72 20 124/72 93 09/28/16 20:00 93 Nasal Cannula 2.00 09/28/16 18:00 91 20 133/77 94 09/28/16 18:00 91 09/28/16 17:34 95 Nasal Cannula 2.00 09/28/16 17:00 68 20 129/78 95 09/28/16 17:00 68 09/28/16 16:00 98.3 73 20 147/90 95 09/28/16 16:00 73 09/28/16 15:00 98.3 68 20 151/84 92 09/28/16 15:00 68 09/28/16 14:00 69 09/28/16 14:00 69 20 128/92 94 09/28/16 13:00 70 09/28/16 13:00 70 20 127/78 97 09/28/16 12:00 71 09/28/16 12:00 98.9 71 20 122/74 97 09/28/16 11:00 72 18 126/76 98 09/28/16 11:00 72 09/28/16 10:00 98.8 77 18 141/88 98 09/28/16 10:00 77 09/29/16 09/29/16 09/29/16 07:00 15:00 23:00 Intake Total 480 ml Output Total 875 ml Balance -395 ml Exam: R neck incision c/d/i CN intact Laboratory Laboratory Tests Test 09/29/16 03:53 White Blood Count 12.3 Red Blood Count 4.28 Hemoglobin 12.2 Hematocrit 35.4 Mean Corpuscular Volume 82.6 Mean Corpuscular Hemoglobin 28.5 Mean Corpuscular Hemoglobin 34.5 Concent Red Cell Distribution Width 15.9 Platelet Count 196 Mean Platelet Volume 7.9 Sodium Level 140 Potassium Level 4.0 Chloride Level 105 Carbon Dioxide Level 27.1 Anion Gap 8 Blood Urea Nitrogen 17 Creatinine 0.91 Estimat Glomerular Filtration 83 Rate Random Glucose 157 Calcium Level 8.2 Assessment and Plan Plan Looks great, neuro intact after CEA Ready for d/c Discharge Planning D/C today RTC 1m with carotid duplex Jae Cage MD Sep 29, 2016 07:35
[2016-09-29] MEDS: INSULIN ASPART SUPPLEMENTAL SCALE SQ SCH (07:58)
[2016-09-29] MEDS: MULTIVITAMINS/MINERALS THERAPEUTIC TAB PO SCH (08:00)
[2016-09-29] MEDS: LOSARTAN 50 MG TAB PO SCH (08:00)
[2016-09-29] MEDS: ASPIRIN EC 81 MG TABEC PO SCH (08:00)
[2016-09-29] MEDS: CLOPIDOGREL 75 MG TAB PO SCH (08:00)
[2016-09-29] MEDS: METOPROLOL TARTRATE 100 MG TAB PO SCH (08:00)
[2016-09-29] MEDS: AMIODARONE 200 MG TAB PO SCH ×2 (08:01→08:06)
--- NOTE | 2016-09-29 08:11 | HHI.CCPN ---
Subjective Remarks/Hospital Course This is a 66-year-old gentleman today underwent a right carotid endarterectomy for 80% stenosis. The patient's past medical history is significant for undergoing a CABG July 2016 during the recovery process approximately 7 weeks ago the patient had experienced a left hemispheric CVA, with resultant right- sided weakness and right-sided facial droop. The patient underwent right CEA under general endotracheal with minimal EBL, but required intraoperatively phenylephrine infusion to maintain optimal blood pressure. Critical care medicine has been consulted to assist with postoperative management. Subjective: 09/29: No acute issues overnight. Hemodynamically stable. No neurological changes, progressing well. Pulmonary wheezing resolved. Patient continues to use Chloraseptic when necessary for pharyngitis which is resolving. Plans for discharge by primary team today. Objective Vital Signs Date Time Temp Pulse Resp B/P Pulse Ox O2 Delivery O2 Flow Rate FiO2 09/29/16 04:00 93 Room Air 09/29/16 04:00 82 09/29/16 04:00 97.5 18 143/84 09/29/16 00:00 2.00 Intake and Output 09/28/16 09/28/16 09/29/16 08:00 16:00 00:00 Intake Total 540 ml Output Total 190 ml Balance 350 ml Result Diagram: 09/29/16 0353 09/29/16 0353 Objective Remarks GENERAL: Gentleman appearing older than stated age with the noted right facial droop, pleasant, pleasantly conversant in no apparent distress SKIN: Warm and dry. HEAD: Atraumatic. Normocephalic. EYES: Pupils equal and round. No scleral icterus. No injection or drainage. ENT: No nasal bleeding or discharge. Mucous membranes pink and moist. NECK: Trachea midline. No JVD. Right neck incision with Dermabond, no losing or redness noted CARDIOVASCULAR: Normal rate, regular rhythm. RESPIRATORY: No accessory muscle use. Clear to auscultation B/L. Breath sounds equal bilaterally. O2 via nasal cannula, GASTROINTESTINAL: Abdomen soft, non-tender, nondistended. No guarding. MUSCULOSKELETAL: Extremities without clubbing, cyanosis, or edema. No obvious deformities. NEUROLOGICAL: Awake and alert. RASS 0. No gross focal/sensory deficits. Follows commands in all 4 extremities. A/P Assessment and Plan ASSESSMENT 1. S/P Right CEA POD #1 2. Hypertension 3. Dyslipidemia 4 .S/P CABG (04/17) 5. Diabetes mellitus 6. Cardiomyopathy 7. Pharyngitis 2/2 endotracheal intubation 8. COPD PLAN -Neurochecks per ICU protocol -Tylenol 650 PO for pain relief -Maintain systolic blood pressure between 723312 mmHg -Continue antihypertensive medications -Resume Plavix, aspirin per vascular surgery management -EF 35%-out of bed to chair -09/23 EKGold inferior wall UT, moderate T-wave abnormality -Glucose monitoring per ICU protocol, maintain glucose less than 180 -Continue incentive spirometry -Bronchodilators when necessary for wheezing Dispo: Patient progressing well. Plan for discharge per primary team. Critical care medicine will sign off thank you for the consult. Level 2 Physician Kendra Garcia MD Sep 29, 2016 08:11
[2016-09-29] MEDS ORDERED: OXYC-392 PO (08:23)
[2016-09-29 08:31] VITALS: BP 148/86; PULSE 82; RESP 19; TEMP 97.8
--- NOTE | 2016-09-29 08:32 | PD.VS.DC ---
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 This was in May 2016. During the w/u of this he was found to have R carotid stenosis >80%. He has no neuro symptoms from this. In the interim since his CVA he underwent CABG from which he has recovered well. Procedure(s): R CEA Significant Findings GENERAL: A&OX3, NAD, GCS15 SKIN: Warm and dry. incision to R neck intact with surgical glue, no R/D/S CARDIOVASCULAR: +S1,S2 RESPIRATORY: BS CTA/ No accessory muscle use. 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 This was in May 2016 Hx of R carotid stenosis >80% w/o neuro symptoms R CEA was done w/o complications or neuro deficits CN 2-12 intact Allergies Coded Allergies Type Severity Reaction Last Updated Verified No Known Allergies 09/28/16 No ///// 06:00 18:00 06:00 18:00 06:00 18:00 Intake Total 540 ml 480 ml Output Total 190 ml 875 ml Balance 350 ml -395 ml Intake Oral 240 ml 480 ml IV Total 300 ml Output Urine Total 190 ml 875 ml # Bowel Movements 0 Laboratory Tests Test 09/28/16 09/29/16 06:22 03:53 Blood Type B POSITIVE Antibody Screen NEGATIVE White Blood Count 12.3 TH/MM3 Red Blood Count 4.28 MIL/MM3 Hemoglobin 12.2 GM/DL Hematocrit 35.4 % Mean Corpuscular Volume 82.6 FL Mean Corpuscular Hemoglobin 28.5 PG Mean Corpuscular Hemoglobin 34.5 % Concent Red Cell Distribution Width 15.9 % Platelet Count 196 TH/MM3 Mean Platelet Volume 7.9 FL Sodium Level 140 MEQ/L Potassium Level 4.0 MEQ/L Chloride Level 105 MEQ/L Carbon Dioxide Level 27.1 MEQ/L Anion Gap 8 MEQ/L Blood Urea Nitrogen 17 MG/DL Creatinine 0.91 MG/DL Estimat Glomerular Filtration 83 ML/MIN Rate Random Glucose 157 MG/DL Calcium Level 8.2 MG/DL Procedure Category Date Status Time Lactated Ringer's MED 09/28/16 In Process 1000 Ml Inj (Lr 1000 M 06:15 Sodium Chlorid 0.9% MED 09/28/16 In Process 500 Ml Inj (Ns 500 M 06:15 Type And Screen BBK 09/28/16 Complete 06:11 Metoprolol Tartrate MED 09/28/16 In Process (Lopressor) 06:15 Povidone Iod 5% MED 09/28/16 In Process Antisepsis Kit 06:15 Chlorhexidine 2% MED 09/28/16 In Process Cloth (Chlorhexidine 06:15 Insulin Human Regular MED 09/28/16 In Process Inj (Novolin R Inj 06:15 Admit To Inpatient ADMITTING 09/28/16 Transmitted Code Status CODE 09/28/16 Transmitted 06:50 Vital Signs (Adult) ELDA 09/28/16 In Process 06:50 Chairperson Anesthesiology / ELDA 09/28/16 In Process Telemetry 06:50 Activity Oob Ad Gabriela ELDA 09/29/16 In Process 06:00 Activity Bed Rest ELDA 09/28/16 In Process 06:[address] Clayton ELDA 09/28/16 In Process 06:50 Diet Heart Healthy DIET 09/28/16 Transmitted Breakfast Basic Metabolic Panel LAB 09/29/16 Complete (Bmp) 04:00 Cbc No Diff, Includes LAB 09/29/16 Complete Plts 04:00 Consult Metal Tank Erector CONS 09/28/16 Transmitted Oxycodone (Roxicodone) MED 09/28/16 In Process 07:00 Hydromorphone MED 09/28/16 In Process (Dilaudid) 07:00 Scd Bilateral/Knee ELDA 09/28/16 In Process High 06:50 Inpatient ADMITTING 09/28/16 Transmitted Certification Amiodarone (Cordarone) MED 09/28/16 In Process 09:00 Aspirin Ec (Ecotrin MED 09/28/16 In Process Ec) 09:00 Atorvastatin (Lipitor) MED 09/28/16 In Process 21:00 Clopidogrel (Plavix) MED 09/28/16 In Process 09:00 Losartan (Cozaar) MED 09/28/16 In Process 09:00 Metoprolol Tartrate MED 09/28/16 In Process (Lopressor) 09:00 Multivitamins-Minerals MED 09/28/16 Complete Therap (Theragran 07:00 Blood Glucose Goal ELDA 09/28/16 In Process (Criteria) 06:53 Hypoglycemia 70 Mg/Dl ELDA 09/28/16 In Process Or < 06:[address]: Radha ELDA 09/28/16 In Process 06:53 Dextrose 50% In [place] MED 09/28/16 In Process (Vial) Inj (D50w (Vi 07:00 Glucagon Inj MED 09/28/16 In Process (Glucagon Inj) 07:00 Insulin Aspart MED 09/28/16 In Process Supplemtl Scale 07:00 Sugammadex Inj MED 09/28/16 Complete ([place] Inj) 06:53 Fentanyl Inj MED 09/28/16 Complete (Fentanyl Inj) 06:53 Midazolam Inj (Versed MED 09/28/16 Complete Inj) 07:03 Dexamethasone Inj MED 09/28/16 Complete (Decadron Inj) 07:03 Famotidine Inj MED 09/28/16 Complete (Pepcid Inj) 07:03 Multivitamins-Minerals MED 09/28/16 In Process Therap (Theragran 09:00 Heparin Inj (Heparin MED 09/28/16 Complete Inj) 07:18 Cefazolin 2 Gm Premix MED 09/28/16 Complete (Ancef 2 Gm Premix 07:18 Thrombin Top [place] MED 09/28/16 Complete (Thrombin Top [place]) 07:19 Protamine Sulfate Inj MED 09/28/16 Complete (Protamine Sulfate 07:19 (Hub Use Only)Inp Phy CONS 09/28/16 Transmitted Cons/Ref Enoxaparin Inj MED 09/29/16 In Process (Lovenox Inj) 09:00 Am Admit Pre Op Care [facility] 09/28/16 Complete Heparin Inj (Heparin MED 09/28/16 Complete Inj) 08:08 Heparin Inj (Heparin MED 09/28/16 Complete Inj) 07:44 Thrombin Top [place] MED 09/28/16 Complete (Thrombin Top [place]) 07:44 Bupivacaine Pf 0.5% MED 09/28/16 Complete Inj (Marcaine Pf 0.5 08:51 Urinary Catheter ELDA 09/28/16 Complete Management 09:01 Fentanyl Inj MED 09/28/16 Complete (Fentanyl Inj) 09:55 Remove Urinary ELDA 09/28/16 In Process Catheter 09:55 ^ Discontinue ELDA 09/28/16 In Process Arterial Line 09:55 Activity Oob Ad Gabriela ELDA 09/28/16 In Process 09:55 Resp Incentive RSP 09/28/16 Logged Spirometry ^ Other Nursing Orders ELDA 09/28/16 In Process 16:25 Acetaminophen Inj MED 09/28/16 In Process (Ofirmev Inj) 16:30 Phenol 1.4% [place] MED 09/28/16 In Process (Chloraseptic [place]) 16:30 Attending Discharge DISCHARGE 09/29/16 Transmitted Order Vital Signs Date Time Temp Pulse Resp B/P Pulse Ox O2 Delivery O2 Flow Rate FiO2 09/29/16 04:00 93 Room Air 09/29/16 04:00 82 09/29/16 04:00 97.5 82 18 143/84 93 09/29/16 01:00 95 Room Air 09/29/16 00:00 76 09/29/16 00:00 76 18 148/92 95 09/29/16 00:00 95 Nasal Cannula 2.00 09/28/16 20:00 72 09/28/16 20:00 97.7 72 20 124/72 93 09/28/16 20:00 93 Nasal Cannula 2.00 09/28/16 18:00 91 20 133/77 94 09/28/16 18:00 91 09/28/16 17:34 95 Nasal Cannula 2.00 09/28/16 17:00 68 20 129/78 95 09/28/16 17:00 68 09/28/16 16:00 98.3 73 20 147/90 95 09/28/16 16:00 73 09/28/16 15:00 98.3 68 20 151/84 92 09/28/16 15:00 68 09/28/16 14:00 69 09/28/16 14:00 69 20 128/92 94 09/28/16 13:00 70 09/28/16 13:00 70 20 127/78 97 09/28/16 12:00 71 09/28/16 12:00 98.9 71 20 122/74 97 09/28/16 11:00 72 18 126/76 98 09/28/16 11:00 72 09/28/16 10:00 98.8 77 18 141/88 98 09/28/16 10:00 77 09/28/16 06:20 96.1 109 18 176/108 96 Discharge Condition: Good Discharge Disposition: Discharge Home Discharge Instructions: NO driving for 2 weeks as incision is heeling Leave incision Open to Air Do not apply any creams or ointments to incision site Call the office to report any increase in redness, swelling or drainage from incision site No Tub baths or submerging in the pool or ocean as incision is heeling May Shower Call the office with any questions or concerns Talita GARCIA [facility] [place] [phone] Any questions or concerns: Call [facility] V[facility] at [facility] [phone] Talita Landa Sep 29, 2016 08:32
[2016-09-29] MEDS ORDERED: ENOXAPARIN SODIUM 30 MG/0.3 ML SYRINGE SQ SCH (09:00)
--- NOTE | 2016-09-30 11:25 | MP ---
cc: JAE CAGE MD DATE OF SURGERY: 09/28/2016 PREOPERATIVE DIAGNOSIS Asymptomatic high-grade right carotid stenosis. POSTOPERATIVE DIAGNOSIS Asymptomatic high-grade right carotid stenosis. PROCEDURE 1. Right carotid endarterectomy. ATTENDING SURGEON Jae Cage MD ANESTHESIA General. INDICATIONS Mr. Boggs is a 66-year-old gentleman with high-grade asymptomatic right carotid stenosis. He is taken to the operating room for surgical intervention. DESCRIPTION OF PROCEDURE Informed consent was obtained from the patient. He was taken to the operating room and placed supine on the operating room table. An appropriate time-out was taken to ensure the patient's identity, operative site and planned procedure. The administration of 2 grams of Ancef was initiated prior to skin incision and will be discontinued after single preoperative dose. Everyone in the room agreed with time-out and we proceeded. General endotracheal anesthesia was induced. The patient was prepped and draped. An incision was made along the anterior border of sternocleidomastoid and carried down to subcutaneous tissue with electrocautery. The sternocleidomastoid was retracted posteriorly, the jugular vein was retract anteriorly and the facial vein was divided between silk ties. The common carotid artery, internal carotid and external carotid arteries were dissected free. Vessel loops were placed around all these blood vessels. The patient was systemically heparinized with 10,000 units of intravenous heparin. ACT was confirmed to be greater than 250. Distal and proximal control of the internal and common carotid arteries were obtained with profunda clamps and the external carotid artery was controlled with a profunda clamp as well. A longitudinal arteriotomy was made with an 11 blade, extended with [place] scissors from the common carotid out to the internal carotid artery well past the area of obvious plaque. Neuro monitoring showed no EEG changes and as such no shunt was placed. The carotid bifurcation was endarterectomized without difficulty and a nice endpoint was obtained. The arteriotomy was closed with a bovine pericardial patch which was sewn on using running 5-0 Prolene suture. At the completion it was flushed, noted to be hemostatic. Clamps were released, there was nice Doppler signal in the ECA and ICA. Again, there was no neurological changes on the neuro monitoring. Hemostasis was achieved. The heparin was reversed with protamine. The wound was irrigated, made hemostatic and closed with 2-0 Polysorb, 3-0 Polysorb and 4-0 Monocryl. The sponge and needle counts were correct at the end of the case. At the end of the case the patient was awoken from anesthesia, extubated and transported to the ICU in stable condition with no neurological deficits. MD MONALISA Vann/MERCEDES /8:15 PM /11:12 AM
== END 2016-09-29 09:52 | disposition home or self-care (01) | DRG 38 ==
LOC: HSDI 09-28 05:55 → HCVR 09-28 09:35
PROVIDERS: ADMIT Surgery; ATTEND Surgery
PROC: 03UK0KZ Supplement Right Internal Carotid Artery with Nonautologous Tissue Substitute, Open Approach (ICD-10-PCS; 2016-09-28)
PROC: 03CK0Z6 (ICD-10-PCS; principal; 2016-09-28 07:09)
DX: I65.21 Occlusion and stenosis of right carotid artery (principal); I42.9 Cardiomyopathy, unspecified; J44.9 Chronic obstructive pulmonary disease, unspecified; I10 Essential (primary) hypertension; I25.10 Atherosclerotic heart disease of native coronary artery without angina pectoris; E11.9 Type 2 diabetes mellitus without complications; E78.5 Hyperlipidemia, unspecified; J02.9 Acute pharyngitis, unspecified; E78.00 Pure hypercholesterolemia, unspecified; Z87.891 Personal history of nicotine dependence; Z86.73 Personal history of transient ischemic attack (TIA), and cerebral infarction without residual deficits; Z95.1 Presence of aortocoronary bypass graft; Z79.82 Long term (current) use of aspirin; Z79.84 Long term (current) use of oral hypoglycemic drugs; I25.2 Old myocardial infarction
CPT/HCPCS: 80048; 82948; 85027; 86850; 86900; 86901; 94150; C1768; J0690; J1100; J1644; J1815; J2250; J2370; J2405; J2720; J3010; J7040; J7120

== ENCOUNTER → 2016-06-28 | Outpatient (CLI) | payer MEDICARE, OTHER ==
[~2016-06-28] MED LIST changes: +ACAR50TA PO; +AMIO200T PO; +DOCU1CAP39 PO; +FLUT1INH INH; +IPRA17I INH; +LOSA50TA PO; +METF1000 PO; +METO100T PO; +NORC5TAB PO; +OXYC-392 PO; +PRED10 PO; +SPIRCAP INH; +SYMB160A INH; +THERM PO
--- NOTE | 2016-06-28 13:46 | RADRPT ---
EXAM DATE/TIME: 06/28/2016 13:25 [facility] COMPARISON: No previous studies available for comparison. INDICATIONS : Preoperative chest x-ray for carotid surgery. Evaluate for pneumonia, pneumothorax, communicable dise ase. MEDICAL HISTORY : None. SURGICAL HISTORY : None. ENCOUNTER: Initial ACUITY: 1 day PAIN SCORE: 0/10 LOCATION: Bilateral chest FINDINGS: PA and lateral views of the chest demonstrate the lungs to be moderately hyperinflated without eviden ce of mass, infiltrate or effusion. The cardiomediastinal contours are unremarkable. Osseous struct ures are intact. CONCLUSION: No acute disease. Moderate hyperinflation Boy Vaca MD FACR on June 28, 2016 at 13:44 Board Certified Radiologist. This report was verified electronically.
[2016-06-28 14:02] LABS: APTT (PATIENT) 28.7 SEC (24.3-30.1); PROTHROMBIN TIME - PATIENT 10.8 SEC (9.8-11.6)
[2016-06-28 14:10] LABS: BLOOD, URINE NEG (NEG); COMMENT (UR) CULT NOT INDICATED; CULTURE IF INDICATED CULT NOT INDICATED; GLUCOSE,URINE NEG (NEG); KETONE, URINE NEG (NEG); MUCUS URINE FEW /lpf (OCC); NITRITE,URINE NEG (NEG); URINE COLOR LIGHT-YELLOW (YELLW/STRAW)
[2016-06-28 14:14] LABS: BICARBONATE 30.5 MEQ/L (21.0-32.0); POTASSIUM 4.1 MEQ/L (3.5-5.1)
[2016-06-28 14:20] LABS: HEMATOCRIT 47.1 % (39.0-51.0); MEAN CORPUSCULAR HEMOGLOBIN 29.8 PG (27.0-34.0); MEAN CORPUSCULAR HGB CONC 33.8 % (32.0-36.0); PLATELET COUNT 220 TH/MM3 (150-450); RED BLOOD COUNT 5.35 MIL/MM3 (4.50-5.90); RED CELL DISTRIBUTION WIDTH 13.2 % (11.6-17.2); REVIEW FLAG FINAL
== END ==
LOC: CPRE 12:12
PROVIDERS: ATTEND Surgery
DX: Z01.811 Encounter for preprocedural respiratory examination (principal); Z01.812 Encounter for preprocedural laboratory examination; I65.23 Occlusion and stenosis of bilateral carotid arteries
CPT/HCPCS: 36415; 71020; 80048; 81001; 85027; 85610; 85730

== ENCOUNTER 2016-07-12 10:10 | Day surgery (SDC) | payer MEDICARE, OTHER ==
[~2016-07-12] VITALS: Ht 182.9 cm; Wt 89.8 kg
[~2016-07-12 10:10] MED LIST changes: +ASPI81TA11 PO; +BLOOD GLUCOSE T1 TES; +INSU-119; +INSU-126; +LANCETS1 MI1; +LEVEMIR SQ; +LIPI10TA PO; +LOSA50TA PO; +METF1000 PO; +METO100T PO; +NOVOLOGSS SQ; +PLAV75TA29 PO; +SYMB160A INH; +VITA100T2 PO; +glucometer
[2016-07-12] MEDS ORDERED: ASPIRIN 325 MG TAB PO SCH (10:15)
[2016-07-12] MEDS ORDERED: SODIUM CHLOR 0.9% 1000 ML INJ 1,000 ML IV SCH (10:15)
[2016-07-12] MEDS ORDERED: NS 1000P @30 MLS/HR (KVO) IV SCH (10:30)
[2016-07-12 10:47] VITALS: BP 124/73; PULSE 79; RESP 18; TEMP 97.9; O2SAT 98
[2016-07-12 10:48] LABS: AUTOMATED NEUTROPHIL # 10.1 TH/MM3 (1.8-7.7); BASOPHIL % 0.1 % (0.0-2.0); EOSINOPHIL # 0.2 TH/MM3 (0-0.4); EOSINOPHIL % 1.3 % (0.0-4.0); HEMATOCRIT 45.3 % (39.0-51.0); HEMO FLAGS DIFF FINAL; LYMPHOCYTE # 0.9 TH/MM3 (1.0-4.8); MEAN CORPUSCULAR HEMOGLOBIN 29.7 PG (27.0-34.0); MEAN CORPUSCULAR HGB CONC 33.8 % (32.0-36.0); MONO % 9.7 % (0.0-8.0); NEUT % 81.9 % (16.0-70.0); PLATELET COUNT 225 TH/MM3 (150-450); RED BLOOD COUNT 5.14 MIL/MM3 (4.50-5.90); RED CELL DISTRIBUTION WIDTH 13.3 % (11.6-17.2); WHITE BLOOD COUNT 12.4 TH/MM3 (4.0-11.0)
[2016-07-12 11:00] LABS: APTT (PATIENT) 33.7 SEC (24.3-30.1); PROTHROMBIN TIME - PATIENT 11.2 SEC (9.8-11.6)
[2016-07-12 11:07] LABS: BICARBONATE 26.7 MEQ/L (21.0-32.0)
[2016-07-12] MEDS ORDERED: IOHEXOL 350 MG/ML 100 ML BTL (for Cath Lab) OTHER ONE (12:23)
[2016-07-12] MEDS ORDERED: MIDAZOLAM HCL 2 MG/2 ML VIAL ONE (12:41)
[2016-07-12] MEDS ORDERED: HEPARIN-NS/PF INJ 500 ML ONE (12:41)
[2016-07-12] MEDS ORDERED: METOPROLOL TARTRATE 25 MG TAB PO SCH (15:00)
[2016-07-12] MEDS ORDERED: PAPAVERINE INJ 60 MG, NITROGLYCERIN INJ 100 MCG, DILTIAZEM INJ 100 MG in SODIUM CHLORID... IRRIGATION SCH (15:00)
[2016-07-12] MEDS ORDERED: PILL SPLITTER OTHER PRN (15:15)
--- NOTE | 2016-07-12 16:30 | PD.CAR.PN ---
CVT Progress Note Subjective/Hospital Course: sts data discussed with pt RISK SCORES About the STS Risk Calculator Procedure: CAB Only Risk of Mortality: 1.743% Morbidity or Mortality: 19.708% Long Length of Stay: 9.246% Short Length of Stay: 29.978% Permanent Stroke: 2.022% Prolonged Ventilation: 12.785% DSW Infection: 0.91% Renal Failure: 5.209% Reoperation: 5.932% Objective: Vital Signs Date Time Temp Pulse Resp B/P Pulse Ox O2 Delivery O2 Flow Rate FiO2 07/12/16 13:40 100 Room Air 07/12/16 10:47 97.9 79 18 124/73 98 Labs: Laboratory Tests Test 07/12/16 10:33 White Blood Count 12.4 TH/MM3 (4.0-11.0) Red Blood Count 5.14 MIL/MM3 (4.50-5.90) Hemoglobin 15.3 GM/DL (13.0-17.0) Hematocrit 45.3 % (39.0-51.0) Mean Corpuscular Volume 88.0 FL (80.0-100.0) Mean Corpuscular Hemoglobin 29.7 PG (27.0-34.0) Mean Corpuscular Hemoglobin 33.8 % Concent (32.0-36.0) Red Cell Distribution Width 13.3 % (11.6-17.2) Platelet Count 225 TH/MM3 (150-450) Mean Platelet Volume 8.7 FL (7.0-11.0) Neutrophils (%) (Auto) 81.9 % (16.0-70.0) Lymphocytes (%) (Auto) 7.0 % (9.0-44.0) Monocytes (%) (Auto) 9.7 % (0.0-8.0) Eosinophils (%) (Auto) 1.3 % (0.0-4.0) Basophils (%) (Auto) 0.1 % (0.0-2.0) Neutrophils # (Auto) 10.1 TH/MM3 (1.8-7.7) Lymphocytes # (Auto) 0.9 TH/MM3 (1.0-4.8) Monocytes # (Auto) 1.2 TH/MM3 (0-0.9) Eosinophils # (Auto) 0.2 TH/MM3 (0-0.4) Basophils # (Auto) 0.0 TH/MM3 (0-0.2) CBC Comment DIFF FINAL Differential Comment Prothrombin Time 11.2 SEC (9.8-11.6) Prothromb Time International 1.0 RATIO Ratio Activated Partial 33.7 SEC Thromboplast Time (24.3-30.1) Sodium Level 139 MEQ/L (136-145) Potassium Level 4.0 MEQ/L (3.5-5.1) Chloride Level 102 MEQ/L (98-107) Carbon Dioxide Level 26.7 MEQ/L (21.0-32.0) Anion Gap 10 MEQ/L (5-15) Blood Urea Nitrogen 19 MG/DL (7-18) Creatinine 1.18 MG/DL (0.60-1.30) Estimat Glomerular Filtration 61 ML/MIN (>89) Rate Random Glucose 174 MG/DL (74-106) Calcium Level 8.8 MG/DL (8.5-10.1) Result Diagram: 07/12/16 1033 07/12/16 1033 Marzena Montano Jul 12, 2016 16:30
[2016-07-12 17:01] LABS: BLOOD, URINE NEG (NEG); COMMENT (UR) CULT NOT INDICATED; CULTURE IF INDICATED CULT NOT INDICATED; GLUCOSE,URINE NEG (NEG); KETONE, URINE NEG (NEG); MUCUS URINE FEW /lpf (OCC); NITRITE,URINE NEG (NEG); PH, URINE 6.5 (5.0-8.5); URINE COLOR YELLOW (YELLW/STRAW)
--- NOTE | 2016-07-12 17:30 | RADRPT ---
EXAM DATE/TIME: 07/12/2016 16:01 [facility] COMPARISON: No previous studies available for comparison. INDICATIONS : Preop CABG. MEDICAL HISTORY : CVA. HTN. Dyslipidemia. Diabetic. Carotid stentosis. SURGICAL HISTORY : Inguinal hernia repair. ENCOUNTER: Initial ACUITY: 1 day PAIN SCORE: 2/10 LOCATION: Bilateral legs. TECHNIQUE: Venous ultrasound of the left and right leg was performed from the inguinal ligament to the proximal calf. Real-time, color Doppler and spectral tracing, compression and augmentation techniques were us ed. FINDINGS: RIGHT LEG: There is normal compressibility of the deep venous system from the inguinal region to the proximal ca lf. No echogenic clot is seen in the lumen of the common femoral, femoral, popliteal, and posterior tibial veins. There is a normal response of the venous system to proximal and distal augmentation an d respiration. LEFT LEG: There is normal compressibility of the deep venous system from the inguinal region to the proximal ca lf. No echogenic clot is seen in the lumen of the common femoral, femoral, popliteal, and posterior tibial veins. There is a normal response of the venous system to proximal and distal augmentation an d respiration. CONCLUSION: Normal examination. Abilio Montenegro MD on July 12, 2016 at 17:28 Board Certified Radiologist. This report was verified electronically.
--- NOTE | 2016-07-12 17:32 | RADRPT ---
EXAM DATE/TIME: 07/12/2016 16:09 [facility] COMPARISON: No previous studies available for comparison. INDICATIONS : Preop CABG. MEDICAL HISTORY : CVA. HTN. Dyslipidemia. Diabetic. Carotid stentosis. SURGICAL HISTORY : Inguinal hernia repair. ENCOUNTER: Initial ACUITY: 1 day PAIN SCORE: 3/10 LOCATION: Bilateral leg. GREATER SAPHENOUS VEIN THIGH: PROXIMAL: Right 5 mm Left 4 mm MID: Right 5 mm Left 5 mm DISTAL: Right 5 mm Left 2 mm CALF: PROXIMAL: Right 3 mm Left 3 mm MID: Right 2 mm Left 2 mm DISTAL: Right 2 mm Left 2 mm FINDINGS: The venous system of the lower extremities are patent by color Doppler imaging. Measurements of the leg veins (in mm) are listed above. CONCLUSION: The superficial venous system in both lower extremity is patent. Diameter measurement s of the greater saphenous veins are given above. Jack Collier MD on July 12, 2016 at 17:29 Board Certified Radiologist. This report was verified electronically.
[2016-07-12 17:36] LABS: HEMOGLOBIN A1a 1.4 %; HEMOGLOBIN A1b 2.1 %; HEMOGLOBIN LA1C 2.5 %; HEMOGLOBIN P3 4.4 %
--- NOTE | 2016-07-12 17:36 | RADRPT ---
EXAM DATE/TIME: 07/12/2016 15:51 [facility] COMPARISON: US CAROTID ARTERIES, May 28, 2016, 15:46. INDICATIONS : Preop CABG. MEDICAL HISTORY : CVA. HTN. Dyslipidemia. Diabetic. Carotid stenosis. SURGICAL HISTORY : Inguinal hernia repair. ENCOUNTER: Initial ACUITY: 1 day PAIN SCORE: 10 LOCATION: Bilateral neck PEAK SYSTOLIC VELOCITIES (cm/sec): ICA/CCA RATIO: Right: 3.2 Left: 1.0 ICA: Right: 198 Left: 87 CCA: Right: 61 Left: 86 ECA: Right: 101 Left: 98 VERTEBRAL: Right: 61 antegrade Left: 43 antegrade Elevated flow velocities and ICA/CCA ratios have been found to correlate with increased degrees of vessel stenosis, calculated as percentage of diameter relative to a normal segment of distal ICA/CCA FINDINGS: There is a 50-69% stenosis of the right internal carotid artery with elevated velocities ratio indica benjamin above. There is no evidence for hemodynamically significant stenosis on the left. Antegrade flow is noted in the bilateral vertebral arteries. There is moderate atherosclerotic plaquing bilaterally. CONCLUSION: 1. No evidence for hemodynamically significant stenosis on the left. 2. 50-69% stenosis right internal carotid artery. Abilio Montenegro MD on July 12, 2016 at 17:33 Board Certified Radiologist. This report was verified electronically.
--- NOTE | 2016-07-12 18:47 | RADRPT ---
EXAM DATE/TIME: 07/12/2016 18:22 [facility] COMPARISON: CHEST PA & LAT, June 28, 2016, 13:25. INDICATIONS : Evaluate for pneumonia, pneumothorax, and communicable disease. Preop for CABG. MEDICAL HISTORY : [place]. HTN. Dyslipidemia. Diabetic. Carotid stentosis. SURGICAL HISTORY : Inguinal hernia repair. ENCOUNTER: Initial ACUITY: 1 day PAIN SCORE: 0/10 LOCATION: Bilateral chest FINDINGS: The lungs are clear. The heart is minimally enlarged. The pulmonary vascularity is normal. There is n o evidence for infiltrate or failure. The portion of the bony skeleton visualized is unremarkable. CONCLUSION: Compensated cardiomegaly otherwise negative Boy Vaca MD FACR Board Certified Radiologist. This report was verified electronically.
--- NOTE | 2016-07-13 08:17 | MB ---
cc: COLT MCLAUGHLIN MD DATE OF CONSULTATION 07/12/2016 DATE OF 1950 HISTORY OF THE PRESENT ILLNESS A 66-year-old male, patient of Dr. Horton, Dr. Jo Marti, recent admission for a left hemispheric stroke, right internal carotid artery stenosis. Back in May the patient had a CTA of the neck which showed a 70% right proximal internal carotid artery. No significant stenosis of the left carotid artery. The patient apparently had suffered a left hemispheric stroke with some right-sided weakness where he has been able to receive physical therapy, occupational therapy, is able to resume driving. Does not walk with a walker or assistive device. He was to follow up for a planned carotid endarterectomy with Dr. Cage but apparently underwent cardiac PET scan 06/29/2016 which measured a moderate risk showing NH, moderate left ventricular systolic dysfunction consistent with ischemic cardiomyopathy with EF of 33%. He underwent cardiac cath today by Dr. Horton showing left main disease of 50%, mid distal LAD 25-40. The diagonal was large 50% stenosed. The OM 60%, OM-2 100%. We were consulted to evaluate for coronary artery bypass grafting. PAST MEDICAL HISTORY Includes: 1. Recent left hemispheric stroke with right-sided weakness with minimal residual, however, still has some mild facial droop with minimal right-sided weakness in the right arm and right leg. 2. Cardiomyopathy with EF of 33%. 3. Congestive heart failure. 4. Carotid stenosis on the right with recent again neck CTA 70% stenosis in the right proximal internal carotid artery. 5. Hypertension. 6. Continued tobacco abuse. 7. History of prior heavy alcohol use. 8. Diabetes mellitus. 9. Hyperlipidemia. PAST SURGICAL HISTORY 1. He has had some skin tags removed off of his back. ALLERGIES THE PATIENT HAS NO KNOWN DRUG ALLERGIES. MEDICATIONS Home meds include: 1. Plavix 75 daily. 2. Aspirin 81 daily. 3. Atorvastatin. 4. Metoprolol. 5. Metformin. 6. NovoLog. 7. Levemir. 8. Symbicort. 9. Losartan. FAMILY HISTORY Mother at 57 from a stroke. Father from [place] at 65. SOCIAL HISTORY The patient , three children. He has been smoking one pack for 45 years. He is down to eight cigarettes a day. Retired sales. Very rare alcohol since his prior stroke. REVIEW OF SYSTEMS GENERAL: No night sweats, fever, heat and cold intolerance. SKIN: No psoriasis, itching or hives. HEENT: No blurred vision, hearing loss. RESPIRATORY: No cough, shortness of breath. CARDIOVASCULAR: No current chest pain or shortness of breath. GENITOURINARY: No burning, frequency, urgency. CENTRAL NERVOUS SYSTEM: No history of TIA. Positive for cerebrovascular accident. ENDOCRINE: Positive for diabetes. PHYSICAL EXAMINATION VITAL SIGNS: On exam blood pressure 124/70, heart rate is 79, afebrile. GENERAL: Patient is awake, alert, no acute distress. HEENT: Head is normocephalic, atraumatic. He does have some right facial drooping. NECK: Supple. Positive for bruit on the right. CARDIOVASCULAR: Heart sounds S1-S2, regular rate and rhythm. No rubs, murmurs, gallops. LUNGS: Clear to auscultation. No wheezes, rales or rhonchi. ABDOMEN: Soft, nontender. No masses or organomegaly. EXTREMITIES: No cyanosis, clubbing or edema. LABORATORY DATA Lab work shows hemoglobin 15, hematocrit of 45, white cell count 12, platelet count 225. Sodium 139, potassium 4.0, BUN of 19, creatinine 1.18, glucose 174. INR 1.0 IMAGING Radiological exams as above. IMPRESSION This is a 66-year-old male with recent left hemispheric stroke, right internal carotid artery stenosis that was planned for carotid endarterectomy per Dr. Cage. Had underwent cardiac PET scan which was abnormal showing NH, moderate LV systolic dysfunction consistent with ischemic cardiomyopathy, EF of 33%. The patient underwent cardiac cath which showed multivessel disease. At this time procedures, alternatives and risks were discussed with the patient. The plan will be for coronary artery bypass grafting x4. However, in the meantime we will discuss timing with Dr. Cage for his carotid endarterectomy and further input in regards to his surgery. STS data will be discussed with the patient and documented in the electronic record. He is to hold the Plavix 5 days prior to surgery, and he is to hold the angio receptor ran 3 days prior to surgery. DICTATED BY: JOSE Mancilla Colt POSADA/KK /4:16 PM /8:17 AM
--- NOTE | 2016-07-13 11:53 | EKG ---
Date Performed: 07/12/2016 Time Performed: 10:48:16 PTAGE: 66 years EKG: Sinus rhythm . Inferior infarct - age undetermined Abnormal ECG PREVIOUS TRACING : 06/21/2016 03.35 DOCTOR: Ruben Rao Interpretating Date/Time 07/13/2016 11:46:44
--- NOTE | 2016-07-13 21:01 | MA ---
cc: SHIVA HORTON M.D., MD,QUINTON PEREZ MD DATE July 12, 2016 INDICATION Abnormal nuclear stress test, preop clearance, severe cardiomyopathy. CONSENT Full informed consent was obtained prior to the procedure. Risks of , bleeding, myocardial infarction, perforation, aspiration, foreseen and unforeseen were reviewed. The patient fully appeared to understand. PROCEDURAL STATEMENTS The patient was draped and prepped in the usual manner. The right femoral artery was entered using a micropuncture technique. Via the 4 Scottish sheath, left and right coronary catheters were used to intubate the left and right coronaries. Pigtail catheter in the ventricle. At the end of the procedure all catheters were removed. The sheath was left in place to be pulled in the holding area. FINDINGS I. HEMODYNAMICS: Aortic pressure was 118/61 with a mean of 85. The left ventricular pressure was 108 with a left ventricular end-diastolic pressure of 19. There was no evidence of significant gradient on pullback across the LV outflow tract and aortic valve. II. LEFT VENTRICULOGRAM: The overall left ventricular ejection fraction was estimated at about 35%. There was evidence of inferobasilar hypokinesis. There was no significant mitral regurgitation. III. CORONARY ARTERIES: The left main was large with evidence of a 50% distal left main stenosis. At the ostium of the circumflex vessel there is a high grade stenosis which is eccentric of about 80%. The first diagonal branch was also a large vessel and had some diffuse 50% disease. The circumflex vessel is a large vessel. The first obtuse marginal branch has some diffuse 50% disease. The second obtuse marginal branch had 50% disease. The third obtuse marginals are small and the fourth obtuse marginal branch was medium size. There is evidence of a totally occluded vessel that was probably between the second and third obtuse marginal branch, probably totally occluded at its ostium which filled via collaterals. This could also be a distal right however, the right appears to be a small non dominant vessel. The right coronary artery is a small non dominant vessel. There was evidence of a 60% stenosis in a very tiny branch. CONCLUSIONS 1. Dominant left system with evidence of left main disease and high grade ostial circumflex disease. Plan, we will have to review with surgery re CABG. PLAN We will consider medical management versus bypass surgery to the LAD, possibly diagonal, OM-1, possibly the vessel that which is thought to be an OM-2 and then possibly the OM-4. Once sone carotid surgery as per Dr Donnelly. Shiva Horton MD, FRCP,[facility] HAJ/KK /1:37 PM /8:28 PM MTDEunice
[2016-07-15] MEDS ORDERED: FLUT1INH INH (09:49)
[2016-07-15] MEDS ORDERED: LEVEMIR SQ (10:05)
--- NOTE | 2016-08-03 09:58 | RSPPFT ---
DATE OF PROCEDURE: 07/12/16 COMMENTS: Spirometry with FVC of 3.1 predicted 4.5, FEV1 of 2.3 predicted 3.6, FEV1/FVC ratio 72% predicted 78%. IMPRESSION: On the basis of the above, patient has decreased flow values. Lung volumes would be necessary to confirm restrictive lung defect.
[2016-08-11] MEDS ORDERED: ACAR50TA PO ×2 (09:06→09:08)
== END 2016-07-12 19:09 | disposition home or self-care (01) ==
LOC: HDOC 10:10 → HDIC 10:10 → HDOC 19:09
PROVIDERS: ATTEND Internal Medicine Cardiovascular Disease
DX: I25.5 Ischemic cardiomyopathy (principal); I50.9 Heart failure, unspecified; I10 Essential (primary) hypertension; J44.9 Chronic obstructive pulmonary disease, unspecified; E11.9 Type 2 diabetes mellitus without complications; E78.5 Hyperlipidemia, unspecified; F17.210 Nicotine dependence, cigarettes, uncomplicated; Z79.4 Long term (current) use of insulin; Z79.82 Long term (current) use of aspirin; Z86.73 Personal history of transient ischemic attack (TIA), and cerebral infarction without residual deficits; Z01.818 Encounter for other preprocedural examination
CPT/HCPCS: 71020; 80048; 81001; 83036; 85025; 85610; 85730; 87641; 93005; 93458; 93880; 93970; 93998; 94010; C1769; C1893; J1644; J2250; J3010; J7030; Q9967

== ENCOUNTER 2016-07-22 16:44 | Inpatient (IN) | payer MEDICARE, OTHER ==
[~2016-07-22] VITALS: Ht 182.9 cm; Wt 94.3 kg
[~2016-07-22 16:44] MED LIST changes: +FLUT1INH INH; -SYMB160A INH; -VITA100T2 PO
[2016-07-23] VITALS (13 sets, daily range): BP systolic 85–157; BP diastolic 37–91; PULSE 64–87; RESP 14–20; TEMP 97.3–98.6; O2SAT 93–98
[2016-07-23] MEDS ORDERED: GLYCOPYRROLATE 0.2 MG/ML VIAL IV ONE (05:00)
[2016-07-23] MEDS ORDERED: PROPOFOL 1000 MG/100 ML INJ 100 ML IV ONE (05:00)
[2016-07-23] MEDS ORDERED: ESMOLOL HCL 100 MG/10 ML VIAL IV ONE (05:00)
[2016-07-23] MEDS ORDERED: CALCIUM CHLORIDE 10% SOLN 1 GRAM/10 ML SYR IV ONE (05:00)
[2016-07-23] MEDS ORDERED: MAGNESIUM SULFATE 1000 MG/2 ML VIAL (PED) IV ONE (05:00)
[2016-07-23] MEDS ORDERED: HEPARIN - 10,000 UNITS/ML IV ADDITIVE IV ONE (05:00)
[2016-07-23] MEDS ORDERED: PROTAMINE SULFATE 250 MG/25 ML VIAL IV ONE ×2 (05:00→07:55)
[2016-07-23] MEDS ORDERED: ACETAMINOPHEN 1000 MG/100 ML VIAL IV ONE (05:00)
[2016-07-23] MEDS ORDERED: NITROGLYCERIN-DEXTROSE INJ 250 ML IV ONE (05:00)
[2016-07-23] MEDS ORDERED: CHLORHEXIDINE GLUCONATE 2 % 1 PACK (2 CLOTHS) TOPICAL PRN (05:30)
[2016-07-23] MEDS ORDERED: SODIUM CHLORID 0.9% 500 ML IV PRN (05:30)
[2016-07-23] MEDS ORDERED: METOPROLOL TARTRATE 25 MG TAB PO PRN (05:30)
[2016-07-23] MEDS ORDERED: POVIDONE IODINE 5% (ANTISEPSIS KIT) 4 APPLICATIONS EACH NARE PRN (05:30)
[2016-07-23] MEDS ORDERED: LACTATED RINGER'S 1000 ML IV PRN (05:30)
[2016-07-23] MEDS ORDERED: INSULIN HUMAN REGULAR 1,000 UNITS/10 ML VIAL SQ PRN (05:30)
[2016-07-23] MEDS ORDERED: CHLORHEXIDINE GLUCONATE 4% SOLN 120 ML BTL TOPICAL SCH (05:45)
[2016-07-23] MEDS ORDERED: SODIUM CHLORIDE 0.9% FLUSH 10 ML FLUSH IV FLUSH PRN (05:45)
[2016-07-23] MEDS ORDERED: CEFAZOLIN 500 MG in NS IRR BTL 500 ML IRRIGATION SCH (05:45)
[2016-07-23] MEDS ORDERED: PAPAVERINE 60 MG-NITROGLYCERIN 100 MCG-DILTIAZEM 100 MG in NS 100 ML IRRIGATION SCH ×4 (05:45)
[2016-07-23] MEDS ORDERED: ceFAZolin 2 GM PREMIX 50 ML IV SCH (05:45)
[2016-07-23] MEDS ORDERED: INSULIN REGULAR 100 UNITS in NS 100 ML IV SCH (05:45)
[2016-07-23] MEDS ORDERED: METOPROLOL TARTRATE 25 MG TAB PO SCH (05:45)
[2016-07-23] MEDS ORDERED: SYMB160A INH (06:22)
[2016-07-23] MEDS ORDERED: ceFAZolin 2 GM PREMIX 50 ML ONE (06:23)
[2016-07-23] MEDS ORDERED: HEPARIN SODIUM - SQ 10,000 UNITS/ML VIAL ONE (06:23)
[2016-07-23] MEDS ORDERED: VANCOMYCIN HCL 1000 MG VIAL ONE (06:23)
[2016-07-23] MEDS ORDERED: METOPROLOL TARTRATE 25 MG TAB ONE (06:36)
[2016-07-23] MEDS ORDERED: POTASSIUM CHLORIDE 20 MEQ/10 ML VIAL ONE ×2 (07:13)
[2016-07-23] MEDS ORDERED: PROPOFOL 500 MG/50 ML BTL IV ONE (07:56)
[2016-07-23] MEDS ORDERED: NORMOSOL R INJ 2,000 ML IV ONE (07:57)
[2016-07-23] MEDS ORDERED: LACTATED RINGER'S 1000 ML INJ 1,000 ML IV ONE (07:57)
[2016-07-23] MEDS ORDERED: SODIUM CHLORID 0.9% 500 ML INJ 500 ML IV ONE (07:57)
[2016-07-23] MEDS ORDERED: LACTATED RINGER'S 1000 ML INJ 500 ML IV PRN (11:48)
--- NOTE | 2016-07-23 11:55 | PD.OP ---
cc: Jae Cage MD; Shiva Horton MD; Robert Concepcion MD Operative Report Date of Surgery: Jul 23, 2016 Preoperative Diagnosis: Postoperative Diagnosis: Procedure: 1. Off-pump Coronary Artery Bypass Grafting x 4 with left internal mammary artery (JACOBSEN) to left anterior descending (LAD), reverse saphenous vein graft to the Diagonal 1, reverse saphenous vein graft to the OM1, reverse saphenous vein graft to the OM2 2. Right Leg Endoscopic Vein Line [place] 3. Intraoperative Vein Mapping. . Surgeon: Robert Cnocepcion Radiologist Physician(s): Edgar Lozada Operation and Findings: PREPROCEDURE DIAGNOSES 1. Severe Multi Vessel Coronary Artery Disease. 2. Moderate Left Ventricular Dysfunction 4. Carotid Artery Stenosis 5. CVA POSTPROCEDURE DIAGNOSES Same SURGICAL PROCEDURE 1. Off-pump Coronary Artery Bypass Grafting x 4 with left internal mammary artery (JACOBSEN) to left anterior descending (LAD), reverse saphenous vein graft to the Diagonal 1, reverse saphenous vein graft to the OM1, reverse saphenous vein graft to the OM2 2. Right Leg Endoscopic Vein Line [place] 3. Intraoperative Vein Mapping. SURGEON Robert Concepcion MD DAMAGE CUTTER Mary Lozada DEPARTMENT STORE MANAGER ANESTHESIA General endotracheal ALARM MECHANISM ADJUSTER JESIKA Zhou MD PREPARATION ChloraPrep. COUNTS Needle, sponge, and instrument counts were correct. DRAINS Two 32-Wolof mediastinal tubes. COMPLICATIONS None. INDICATIONS FOR PROCEDURE The patient is a 66-year-old presenting with chest pain. Patient was noted to have multi-vessel coronary artery disease. The patient is being brought to the operating room for surgical revascularization therapy. PROCEDURE Patient was brought to the operating room and placed supine on the OR table. Following the induction of adequate general endotracheal anesthesia and placement of appropriate monitoring devices, intraoperative vein mapping was performed which revealed suitable-caliber conduit in bilateral lower extremities. The patient was then prepped and draped in standard sterile fashion. Next, 2500 units of intravenous heparin was given. The right greater saphenous vein was harvested endoscopically. This appeared to be a useable- caliber conduit. Simultaneously, a median sternotomy was performed and the left internal mammary artery dissected free off the posterior sternal table. The patient was systemically heparinized and anticoagulation monitored by serial ACT measurements. The internal mammary artery had excellent pulsatile flow in it and was a good-caliber conduit. The pericardium was then divided in the midline, the cradle created and targets analyzed. At this point, all anastomoses were performed in a beating-heart fashion using the Maquet stabilizing system with intracoronary shunts. The left internal mammary artery was anastomosed to the distal LAD in an end-to-side fashion using 7-0 Prolene. Segment of saphenous vein graft was then anastomosed to the OM1 in an end-to- side fashion using 7-0 Prolene. The next segment was anastomosed to the OM2 in an end-to-side fashion using 7-0 Prolene. The final segment of saphenous vein graft was then anastomosed to the diagonal 1 in an end-to-side fashion using 7- 0 Prolene. The proximal anastomoses were then constructed to the ascending aorta in a running manner using 6-0 Prolene. All anastomotic sites were inspected and appeared to be hemostatic and patent. Protamine solution was given. Strict hemostasis was assured. The closure was undertaken. 2 chest tubes were placed. The pericardium was reapproximated in the midline. The sternum was approximated using sternal wires. The muscular and fascial layer were then closed in 3 layers. The endoscopic vein harvest site was closed in 2 layers. The patient tolerated the procedure well and was transferred to CVICU in stable condition. Robert Concepcion MD Jul 23, 2016 11:55
[2016-07-23] MEDS ORDERED: NITROGLYCERIN-DEXTROSE INJ 250 ML IV SCH (12:00)
[2016-07-23] MEDS ORDERED: ACETAMINOPHEN 325 MG TAB PO PRN (12:00)
[2016-07-23] MEDS ORDERED: ACETAMINOPHEN 650 MG SUPP RECTAL PRN (12:00)
[2016-07-23] MEDS ORDERED: ONDANSETRON HCL 4 MG/2 ML VIAL IV PUSH PRN (12:00)
[2016-07-23] MEDS ORDERED: INSULIN REGULAR (IV INFUSION) 100 UNITS in SODIUM CHLORIDE 0.9% INJ 99 ML IV SCH (12:00)
[2016-07-23] MEDS ORDERED: CLEVIDIPINE INJ 50 ML IV SCH (12:00)
[2016-07-23] MEDS ORDERED: MAGNESIUM SULFATE INJ 2 GM in SODIUM CHLORIDE 0.9% INJ 100 ML IV PRN ×4 (12:00)
[2016-07-23] MEDS ORDERED: PHENYLEPHRINE INJ 40 MG in DEXTROSE 5% IN WATE 500 ML INJ 496 ML IV SCH ×2 (12:00)
[2016-07-23] MEDS ORDERED: DEXMEDETOMIDINE INJ 200 MCG in SODIUM CHLORIDE 0.9% INJ 50 ML IV SCH (12:00)
[2016-07-23] MEDS ORDERED: POTASSIUM CHLOR 20 MEQ PREMIX 100 ML IV PRN ×3 (12:00)
[2016-07-23] MEDS ORDERED: ACETAMINOPHEN/HYDROcodone 325 MG/5 MG TAB PO PRN (12:00)
[2016-07-23] MEDS ORDERED: CALCIUM CHLORIDE INJ 1 GM in SODIUM CHLORIDE 0.9% INJ 100 ML IV PRN (12:00)
[2016-07-23] MEDS ORDERED: METOPROLOL TARTRATE 5 MG/5 ML VIAL IV PUSH PRN (12:00)
[2016-07-23] MEDS ORDERED: MEPERIDINE HCL 25 MG/ML VIAL IV PRN (12:00)
[2016-07-23] MEDS ORDERED: ALBUMIN HUMAN 5% 12.5 GM/250 ML BOTTLE IV PRN (12:00)
[2016-07-23] MEDS ORDERED: DOPamine INJ PREMIX 500 ML IV SCH (12:00)
[2016-07-23] MEDS ORDERED: EPINEPHrine (1:1000) INJ 4 MG in DEXTROSE 5% IN WATER INJ 246 ML IV SCH ×2 (12:00)
[2016-07-23] MEDS ORDERED: DEXTROSE 50% IN WATER 50 ML VIAL(D50) IV PUSH PRN (12:00)
[2016-07-23] MEDS ORDERED: hydrALAZINE HCL 20 MG/ML VIAL IV PRN (12:00)
[2016-07-23] MEDS ORDERED: CALCIUM CHLORIDE 10% 1 GRAM/10 ML VIAL IV PRN (12:00)
[2016-07-23] MEDS ORDERED: VECURONIUM BROMIDE 20 MG VIAL IV ONE (12:05)
[2016-07-23] MEDS ORDERED: Post-op Orders (for Pharmacy) MISC OTHER ONE (12:20)
[2016-07-23] MEDS ORDERED: MIDAZOLAM HCL 5 MG/5 ML VIAL ONE ×2 (12:42)
[2016-07-23] MEDS ORDERED: fentaNYL CITRATE 1000 MCG/20 ML VIAL ONE (12:43)
--- NOTE | 2016-07-23 13:08 | RADRPT ---
EXAM DATE/TIME: 07/23/2016 12:25 [facility] COMPARISON: CHEST PA & LAT, July 12, 2016, 18:22. INDICATIONS : S/P CABG. MEDICAL HISTORY : None. SURGICAL HISTORY : None. ENCOUNTER: Initial ACUITY: 1 day PAIN SCORE: Non-responsive. LOCATION: Bilateral chest FINDINGS: ET tube is present with tip overlapping approximately 3 cm above the marayn. NG tube is present with tip in the stomach. Chest tube is present on the left side. Left subclavian line is present with tip overlapping the expected region of the SVC. Mediastinal drainage tube is in place.There is evidence f or prior median sternotomy. No definite pneumothorax is seen for technique. The lungs are clear witho ut infiltrate, nodule, or mass. There is no appreciable pleural effusion for technique. Heart and m ediastinum are unremarkable. CONCLUSION: No acute cardiopulmonary disease. Zi Joseph MD on July 23, 2016 at 13:04 Board Certified Radiologist. This report was verified electronically.
[2016-07-23] MEDS: KETOROLAC TROMETHAMINE 30 MG/ML (IVP) VIAL IV PUSH PRN (13:15)
[2016-07-23] MEDS ORDERED: RESP: RACEPINEPHRINE 2.25% 0.5 ML NEB NEB PRN (13:15)
[2016-07-23] MEDS ORDERED: RESP: ALBUTEROL 2.5 MG/IPRATROPIUM 0.5 MG NEB (PRN) NEB (13:15)
[2016-07-23] MEDS ORDERED: POTASSIUM CHLORIDE 20 MEQ CONTROLLED RELEASE TAB PO PRN ×2 (14:00)
[2016-07-23] MEDS: ACETAMINOPHEN 1000 MG/100 ML VIAL IV SCH ×2 (14:21→19:48)
[2016-07-23] MEDS: RESP: ALBUTEROL 2.5 MG/IPRATROPIUM 0.5 MG NEB (SCH) NEB ×2 (17:06→22:10)
[2016-07-23] MEDS: ceFAZolin 2 GM PREMIX 50 ML IV SCH (17:43)
[2016-07-23] MEDS: AMIODARONE 200 MG TAB PO SCH (19:48)
[2016-07-23] MEDS: MORPHINE SULFATE 4 MG/ML INJ IV PRN (21:03)
[2016-07-24] VITALS (18 sets, daily range): BP systolic 109–150; BP diastolic 54–91; PULSE 80–106; RESP 18–22; TEMP 97.5–98.9; O2SAT 92–98
[2016-07-24] MEDS: MORPHINE SULFATE 4 MG/ML INJ IV PRN (00:58)
[2016-07-24 04:25] LABS: MEAN CELL VOLUME 87.1 FL (80.0-100.0); MEAN CORPUSCULAR HGB CONC 33.3 % (32.0-36.0); PLATELET COUNT 260 TH/MM3 (150-450); RED BLOOD COUNT 3.79 MIL/MM3 (4.50-5.90); RED CELL DISTRIBUTION WIDTH 13.2 % (11.6-17.2); REVIEW FLAG FINAL; WHITE BLOOD COUNT 15.4 TH/MM3 (4.0-11.0)
[2016-07-24] MEDS: ceFAZolin 2 GM PREMIX 50 ML IV SCH ×3 (04:59→17:38)
[2016-07-24 05:00] LABS: BICARBONATE 23.9 MEQ/L (21.0-32.0); MAGNESIUM 2.2 MG/DL (1.5-2.5); POTASSIUM 3.9 MEQ/L (3.5-5.1)
[2016-07-24] MEDS: ACETAMINOPHEN 1000 MG/100 ML VIAL IV SCH ×2 (05:01→08:00)
[2016-07-24] MEDS: RESP: ALBUTEROL 2.5 MG/IPRATROPIUM 0.5 MG NEB (SCH) NEB ×4 (05:02→20:40)
--- NOTE | 2016-07-24 05:40 | RADRPT ---
EXAM DATE/TIME: 07/24/2016 04:45 [facility] COMPARISON: CHEST SINGLE AP, July 23, 2016, 12:25. INDICATIONS : Shortness of breath, possible pulmonary disease. MEDICAL HISTORY : None. SURGICAL HISTORY : CABG. ENCOUNTER: Subsequent ACUITY: 2 days PAIN SCORE: 7/10 LOCATION: Bilateral chest FINDINGS: A single portable frontal view of the chest shows left thoracostomy tube, subxiphoid thoracostomy tub e, and left subclavian central line. Median sternotomy wires noted. Heart remains enlarged. Patchy pa renchymal opacification involving left lung base is stable. Right lung is clear. No effusions. CONCLUSION: 1. Stable scattered atelectasis in the left lung. 2. Cardiomegaly. 3. No pneumothorax. Mike Portillo Jr., MD on July 24, 2016 at 5:37 Board Certified Radiologist. This report was verified electronically.
[2016-07-24] MEDS: PANTOPRAZOLE SOD 40 MG DELAYED RELEASE TAB PO SCH (06:00)
[2016-07-24] MEDS: ACETAMINOPHEN/HYDROcodone 325 MG/5 MG TAB PO PRN ×4 (07:23→21:31)
[2016-07-24] MEDS: DOBUTamine PREMIX DRIP 250 ML IV SCH ×2 (07:48→23:16)
[2016-07-24] MEDS: ASPIRIN 81 MG CHEW TAB PO SCH (08:18)
[2016-07-24] MEDS: CLOPIDOGREL 75 MG TAB PO SCH (08:18)
[2016-07-24] MEDS: AMIODARONE 200 MG TAB PO SCH ×2 (08:18→21:34)
--- NOTE | 2016-07-24 08:58 | PD.CAR.PN ---
CVT Progress Note Subjective/Hospital Course: 07/23 Surgical Procedure 1. Off-pump Coronary Artery Bypass Grafting x 4 with left internal mammary artery (JACOBSEN) to left anterior descending (LAD), reverse saphenous vein graft to the Diagonal 1, reverse saphenous vein graft to the OM1, reverse saphenous vein graft to the OM2 2. Right Leg Endoscopic Vein [place] 3. Intraoperative Vein Mapping. 07/24 Doing well Incisional pain Restart beta ran Maintain CT Transfer CIC Objective: Vital Signs Date Time Temp Pulse Resp B/P Pulse Ox O2 Delivery O2 Flow Rate FiO2 07/24/16 08:15 94 Nasal Cannula 4.00 07/24/16 07:15 97.5 106 20 114/66 95 07/24/16 07:15 95 Nasal Cannula 4.00 07/24/16 05:35 18 07/24/16 03:00 87 07/24/16 03:00 98.9 96 18 136/76 98 140/54 07/24/16 01:05 18 07/23/16 23:00 98.4 87 18 121/65 97 124/54 07/23/16 23:00 87 07/23/16 22:11 97 Nasal Cannula 4.00 07/23/16 20:00 98 Nasal Cannula 4.00 07/23/16 19:00 98.6 86 18 138/77 98 147/61 07/23/16 19:00 78 07/23/16 16:08 75 07/23/16 15:04 97.6 70 14 106/64 93 118/56 07/23/16 14:48 94 Nasal Cannula 4.00 07/23/16 14:40 94 Nasal Cannula 4.00 07/23/16 14:40 94 Nasal Cannula 4 07/23/16 14:38 40 07/23/16 13:20 98 50 07/23/16 13:06 64 07/23/16 13:02 97.3 69 14 87/57 98 95/49 07/23/16 13:00 50 07/23/16 12:30 69 100/66 85/37 07/23/16 12:30 60 07/23/16 12:25 98 60 Labs: Laboratory Tests Test 07/24/16 03:55 White Blood Count 15.4 TH/MM3 (4.0-11.0) Red Blood Count 3.79 MIL/MM3 (4.50-5.90) Hemoglobin 11.0 GM/DL (13.0-17.0) Hematocrit 33.0 % (39.0-51.0) Mean Corpuscular Volume 87.1 FL (80.0-100.0) Mean Corpuscular Hemoglobin 29.0 PG (27.0-34.0) Mean Corpuscular Hemoglobin 33.3 % Concent (32.0-36.0) Red Cell Distribution Width 13.2 % (11.6-17.2) Platelet Count 260 TH/MM3 (150-450) Mean Platelet Volume 8.5 FL (7.0-11.0) Sodium Level 141 MEQ/L (136-145) Potassium Level 3.9 MEQ/L (3.5-5.1) Chloride Level 108 MEQ/L (98-107) Carbon Dioxide Level 23.9 MEQ/L (21.0-32.0) Anion Gap 9 MEQ/L (5-15) Blood Urea Nitrogen 15 MG/DL (7-18) Creatinine 0.91 MG/DL (0.60-1.30) Estimat Glomerular Filtration 83 ML/MIN (>89) Rate Random Glucose 104 MG/DL (74-106) Calcium Level 8.1 MG/DL (8.5-10.1) Magnesium Level 2.2 MG/DL (1.5-2.5) Result Diagram: 07/24/16 0355 07/24/16 0355 (1) Ischemic cardiomyopathy (2) DM (diabetes mellitus) (3) S/P CABG x 4 (4) CAD (coronary artery disease), [place] coronary artery Robert Concepcion MD Jul 24, 2016 08:57
[2016-07-24] MEDS ORDERED: SOD PHOSPHATE/SOD BIPHOSPHATE (ADULT) ENEMA 133ML RECTAL PRN (09:00)
[2016-07-24] MEDS ORDERED: BISACODYL 10 MG SUPP RECTAL PRN (09:00)
[2016-07-24] MEDS ORDERED: DEXTROSE 50% IN WATER 50 ML VIAL(D50) IV PRN (09:00)
[2016-07-24] MEDS ORDERED: GLUCAGON 1 MG/ML VIAL OTHER PRN (09:00)
[2016-07-24] MEDS: MULTIVITAMINS/MINERALS THERAPEUTIC TAB PO SCH (09:33)
[2016-07-24] MEDS: METOPROLOL TARTRATE 50 MG TAB PO SCH ×2 (09:33→21:34)
[2016-07-24] MEDS: MAGNESIUM HYDROXIDE SUSP 30 ML CUP PO SCH (09:33)
[2016-07-24] MEDS ORDERED: FLUTICASONE 100 MCG/VILANTEROL 25 MCG INHALER INH SCH (10:00)
[2016-07-24] MEDS: INSULIN ASPART SUPPLEMENTAL SCALE SQ SCH ×4 (10:34→21:42)
[2016-07-24] MEDS: BUDESONIDE-FORMOTEROL 160/4.5 MCG INHALER INH SCH ×2 (11:00→22:15)
[2016-07-24] MEDS: KETOROLAC TROMETHAMINE 30 MG/ML (IVP) VIAL IV PUSH PRN ×2 (11:57→21:31)
[2016-07-24] MEDS: DOCUSATE SODIUM 100 MG CAP PO SCH (21:34)
[2016-07-24] MEDS: ATORVASTATIN 10 MG TAB PO SCH (21:34)
[2016-07-24] MEDS: SENNOSIDES 8.6 MG TAB PO SCH (21:34)
[2016-07-25] VITALS (30 sets, daily range): BP systolic 119–153; BP diastolic 67–87; PULSE 77–108; RESP 18–23; TEMP 97.6–99.1; O2SAT 92–96
[2016-07-25] MEDS: ceFAZolin 2 GM PREMIX 50 ML IV SCH (01:54)
[2016-07-25] MEDS: INSULIN ASPART SUPPLEMENTAL SCALE SQ SCH ×5 (01:58→21:26)
[2016-07-25] MEDS: ACETAMINOPHEN/HYDROcodone 325 MG/5 MG TAB PO PRN ×5 (02:01→16:50)
[2016-07-25] MEDS: PANTOPRAZOLE SOD 40 MG DELAYED RELEASE TAB PO SCH (06:05)
[2016-07-25 06:10] LABS: AUTOMATED NEUTROPHIL # 11.1 TH/MM3 (1.8-7.7); BASOPHIL % 0.2 % (0.0-2.0); EOSINOPHIL # 0.1 TH/MM3 (0-0.4); EOSINOPHIL % 0.6 % (0.0-4.0); HEMATOCRIT 28.4 % (39.0-51.0); HEMO FLAGS DIFF FINAL; LYMPH % 6.4 % (9.0-44.0); LYMPHOCYTE # 0.9 TH/MM3 (1.0-4.8); MEAN CELL VOLUME 86.8 FL (80.0-100.0); MEAN CORPUSCULAR HEMOGLOBIN 29.7 PG (27.0-34.0); MEAN CORPUSCULAR HGB CONC 34.3 % (32.0-36.0); MONO % 10.5 % (0.0-8.0); NEUT % 82.3 % (16.0-70.0); PLATELET COUNT 235 TH/MM3 (150-450); RED BLOOD COUNT 3.27 MIL/MM3 (4.50-5.90); RED CELL DISTRIBUTION WIDTH 13.3 % (11.6-17.2); WHITE BLOOD COUNT 13.5 TH/MM3 (4.0-11.0)
[2016-07-25 06:12] LABS: BICARBONATE 25.7 MEQ/L (21.0-32.0); MAGNESIUM 2.7 MG/DL (1.5-2.5)
--- NOTE | 2016-07-25 07:45 | PD.CAR.PN ---
CVT Progress Note Subjective/Hospital Course: 07/23 Surgical Procedure 1. Off-pump Coronary Artery Bypass Grafting x 4 with left internal mammary artery (JACOBSEN) to left anterior descending (LAD), reverse saphenous vein graft to the Diagonal 1, reverse saphenous vein graft to the OM1, reverse saphenous vein graft to the OM2 2. Right Leg Endoscopic Vein [place] 3. Intraoperative Vein Mapping. 07/24 Doing well Incisional pain Restart beta ran Maintain CT Transfer CIC 07/25 Doing well Ambulate this am and likely D/C CT later today Discharge planning Objective: Vital Signs Date Time Temp Pulse Resp B/P Pulse Ox O2 Delivery O2 Flow Rate FiO2 07/25/16 06:00 90 07/25/16 05:00 90 07/25/16 04:00 88 07/25/16 03:04 96 Nasal Cannula 2.00 07/25/16 03:04 86 20 129/75 96 07/25/16 03:00 87 07/25/16 02:00 86 07/25/16 01:00 84 07/25/16 00:00 84 07/24/16 23:22 80 18 109/69 96 07/24/16 23:22 96 Nasal Cannula 2.00 07/24/16 23:00 83 07/24/16 22:00 104 07/24/16 21:00 102 07/24/16 20:37 98 Nasal Cannula 2.00 07/24/16 20:00 96 07/24/16 19:30 98.2 101 18 119/60 92 07/24/16 19:30 92 Nasal Cannula 2.00 07/24/16 19:00 97 07/24/16 18:01 98 07/24/16 17:05 Room Air 07/24/16 17:00 97 07/24/16 16:00 95 07/24/16 15:00 89 07/24/16 15:00 100 22 150/91 94 Manual Cuff/Palpation 07/24/16 11:30 97.6 82 20 127/77 92 07/24/16 11:00 85 07/24/16 08:30 102 07/24/16 08:15 94 Nasal Cannula 4.00 Labs: Laboratory Tests Test 07/25/16 05:33 White Blood Count 13.5 TH/MM3 (4.0-11.0) Red Blood Count 3.27 MIL/MM3 (4.50-5.90) Hemoglobin 9.7 GM/DL (13.0-17.0) Hematocrit 28.4 % (39.0-51.0) Mean Corpuscular Volume 86.8 FL (80.0-100.0) Mean Corpuscular Hemoglobin 29.7 PG (27.0-34.0) Mean Corpuscular Hemoglobin 34.3 % Concent (32.0-36.0) Red Cell Distribution Width 13.3 % (11.6-17.2) Platelet Count 235 TH/MM3 (150-450) Mean Platelet Volume 8.5 FL (7.0-11.0) Neutrophils (%) (Auto) 82.3 % (16.0-70.0) Lymphocytes (%) (Auto) 6.4 % (9.0-44.0) Monocytes (%) (Auto) 10.5 % (0.0-8.0) Eosinophils (%) (Auto) 0.6 % (0.0-4.0) Basophils (%) (Auto) 0.2 % (0.0-2.0) Neutrophils # (Auto) 11.1 TH/MM3 (1.8-7.7) Lymphocytes # (Auto) 0.9 TH/MM3 (1.0-4.8) Monocytes # (Auto) 1.4 TH/MM3 (0-0.9) Eosinophils # (Auto) 0.1 TH/MM3 (0-0.4) Basophils # (Auto) 0.0 TH/MM3 (0-0.2) CBC Comment DIFF FINAL Differential Comment Sodium Level 140 MEQ/L (136-145) Potassium Level 4.0 MEQ/L (3.5-5.1) Chloride Level 107 MEQ/L (98-107) Carbon Dioxide Level 25.7 MEQ/L (21.0-32.0) Anion Gap 7 MEQ/L (5-15) Blood Urea Nitrogen 22 MG/DL (7-18) Creatinine 1.23 MG/DL (0.60-1.30) Estimat Glomerular Filtration 59 ML/MIN (>89) Rate Random Glucose 124 MG/DL (74-106) Calcium Level 8.3 MG/DL (8.5-10.1) Magnesium Level 2.7 MG/DL (1.5-2.5) Result Diagram: 07/25/16 0533 07/25/16 0533 (1) Ischemic cardiomyopathy (2) DM (diabetes mellitus) (3) S/P CABG x 4 (4) CAD (coronary artery disease), [place] coronary artery Robert Concepcion MD Jul 25, 2016 07:45
[2016-07-25] MEDS: RESP: ALBUTEROL 2.5 MG/IPRATROPIUM 0.5 MG NEB (SCH) NEB ×3 (07:48→20:25)
[2016-07-25] MEDS ORDERED: GLUCAGON 1 MG/ML VIAL OTHER PRN (08:30)
[2016-07-25] MEDS ORDERED: DEXTROSE 50% IN WATER 50 ML VIAL(D50) IV PRN (08:30)
[2016-07-25] MEDS: ASPIRIN 81 MG CHEW TAB PO SCH (09:46)
[2016-07-25] MEDS: AMIODARONE 200 MG TAB PO SCH ×2 (09:46→21:24)
[2016-07-25] MEDS: METOPROLOL TARTRATE 50 MG TAB PO SCH ×2 (09:46→21:23)
[2016-07-25] MEDS: CLOPIDOGREL 75 MG TAB PO SCH (09:46)
[2016-07-25] MEDS: DOCUSATE SODIUM 100 MG CAP PO SCH ×2 (09:46→21:23)
[2016-07-25] MEDS: MULTIVITAMINS/MINERALS THERAPEUTIC TAB PO SCH (09:46)
[2016-07-25] MEDS: MAGNESIUM HYDROXIDE SUSP 30 ML CUP PO SCH (09:47)
[2016-07-25] MEDS: POLYETHYLENE GLYCOL 17 GM PKG PO SCH (09:47)
--- NOTE | 2016-07-25 14:42 | EKG ---
Date Performed: 07/24/2016 Time Performed: 19:48:50 PTAGE: 66 years EKG: CONSIDER ACUTE ST ELEVATION VA Sinus rhythm Inferior ST elevation, CONSIDER ACUTE INFARCT Q waves noted previously of occurent ST elevation is n ew. Clinical correlation is strongly recommended Abnormal ECG PREVIOUS TRACING : 07/12/2016 10.48 DOCTOR: Lenny Aguayo Interpretating Date/Time 07/25/2016 14:40:00
[2016-07-25] MEDS: BUDESONIDE-FORMOTEROL 160/4.5 MCG INHALER INH SCH (21:23)
[2016-07-25] MEDS: ATORVASTATIN 10 MG TAB PO SCH (21:23)
[2016-07-25] MEDS: SENNOSIDES 8.6 MG TAB PO SCH (21:23)
[2016-07-26] VITALS (24 sets, daily range): BP systolic 111–151; BP diastolic 54–77; PULSE 73–104; RESP 18–20; TEMP 98.4–98.8; O2SAT 91–97
[2016-07-26] MEDS: ACETAMINOPHEN/HYDROcodone 325 MG/5 MG TAB PO PRN ×3 (03:30→15:15)
[2016-07-26] MEDS: PANTOPRAZOLE SOD 40 MG DELAYED RELEASE TAB PO SCH (06:02)
[2016-07-26] MEDS: INSULIN ASPART SUPPLEMENTAL SCALE SQ SCH ×4 (06:03→20:48)
[2016-07-26] MEDS ORDERED: PILL SPLITTER OTHER PRN (07:45)
[2016-07-26] MEDS: RESP: ALBUTEROL 2.5 MG/IPRATROPIUM 0.5 MG NEB (SCH) NEB (09:07)
[2016-07-26] MEDS: ASPIRIN 81 MG CHEW TAB PO SCH (09:34)
[2016-07-26] MEDS: MULTIVITAMINS/MINERALS THERAPEUTIC TAB PO SCH (09:35)
[2016-07-26] MEDS: POLYETHYLENE GLYCOL 17 GM PKG PO SCH (09:35)
[2016-07-26] MEDS: DOCUSATE SODIUM 100 MG CAP PO SCH ×2 (09:35→20:34)
[2016-07-26] MEDS: METOPROLOL TARTRATE 50 MG TAB PO SCH ×2 (09:35→20:34)
[2016-07-26] MEDS: CLOPIDOGREL 75 MG TAB PO SCH (09:35)
[2016-07-26] MEDS: MAGNESIUM HYDROXIDE SUSP 30 ML CUP PO SCH (09:35)
[2016-07-26] MEDS: AMIODARONE 200 MG TAB PO SCH ×2 (09:35→20:33)
--- NOTE | 2016-07-26 10:43 | PD.CAR.PN ---
CVT Progress Note Subjective/Hospital Course: 66/ MALE + recent stress test , also recent Left hemispheric stroke with Right ICA stenosis , was scheduled for R CEA with Dr Cage , cath Left main disease and high grade ostial circ disease PMH: CM EF 35% CVA, carotid stenosis , HTN, tobacco abuse, alcohol abuse , DM, HLP 07/23 Surgical Procedure 1. Off-pump Coronary Artery Bypass Grafting x 4 with left internal mammary artery (JACOBSEN) to left anterior descending (LAD), reverse saphenous vein graft to the Diagonal 1, reverse saphenous vein graft to the OM1, reverse saphenous vein graft to the OM2 2. Right Leg Endoscopic Vein [place] 3. Intraoperative Vein Mapping. 07/24 Doing well Incisional pain Restart beta ran Maintain CT Transfer CIC 07/25 Doing well Ambulate this am and likely D/C CT later today Discharge planning 07/26 Doing well, BB increased, add low dose LANA as tolerated EVal for DC in am Objective: GENERAL: in good spirits SKIN: Warm and dry. Prevena to chest , incision intact to right leg HEAD: Normocephalic. EYES: No scleral icterus. No injection or drainage. NECK: Supple, trachea midline. No JVD or lymphadenopathy. CARDIOVASCULAR: Regular rate and rhythm without murmurs, gallops, or rubs. slightly tachycardic RESPIRATORY: Breath sounds equal bilaterally. No accessory muscle use. GASTROINTESTINAL: Abdomen soft, non-tender, nondistended. MUSCULOSKELETAL: No cyanosis, or edema. BACK: Nontender without obvious deformity. No CVA tenderness. Vital Signs Date Time Temp Pulse Resp B/P Pulse Ox O2 Delivery O2 Flow Rate FiO2 07/26/16 09:48 Room Air 93 07/26/16 09:10 97 Nasal Cannula 2.00 07/26/16 07:30 92 Nasal Cannula 1.00 07/26/16 07:30 98.4 88 18 139/77 92 07/26/16 07:00 82 07/26/16 06:00 89 07/26/16 05:00 96 07/26/16 04:00 104 07/26/16 03:00 98.7 99 18 151/54 94 07/26/16 03:00 93 07/26/16 03:00 94 Nasal Cannula 1.50 07/26/16 02:00 94 07/26/16 01:00 94 07/26/16 00:00 90 07/25/16 23:00 85 07/25/16 23:00 99.1 88 20 137/75 94 07/25/16 23:00 94 Nasal Cannula 1.50 07/25/16 22:00 106 07/25/16 21:00 100 07/25/16 20:25 95 Nasal Cannula 2.00 07/25/16 20:00 108 07/25/16 19:00 88 07/25/16 19:00 98.2 103 18 153/87 92 07/25/16 19:00 92 Nasal Cannula 1.50 07/25/16 18:07 95 07/25/16 17:27 92 Nasal Cannula 1.50 07/25/16 17:27 88 Room Air 07/25/16 17:00 96 07/25/16 16:00 88 07/25/16 15:30 97.6 90 23 127/67 93 07/25/16 15:30 93 Nasal Cannula 2.50 07/25/16 15:00 88 07/25/16 14:00 84 07/25/16 13:00 86 07/25/16 12:00 78 07/25/16 11:30 95 Nasal Cannula 3.00 07/25/16 11:30 97.9 77 22 119/72 95 07/25/16 11:00 77 Result Diagram: 07/25/16 0533 07/25/16 0533 Telemetry: NSR (1) Ischemic cardiomyopathy Plan: start LANA (2) DM (diabetes mellitus) Plan: re-add metformin and levemir HGB A1C 8.0 consult early childhood special educator (3) S/P CABG x 4 Plan: ASA, statin , Increase BB , plavix OOB, ambulate pulm toileting CM eval C at [place] (4) CAD (coronary artery disease), [place] coronary artery (5) Carotid stenosis, right Plan: will need f/u with Dr Cage in two weeks (6) CVA (cerebral vascular accident) Plan: plavix, ASA Marzena Montano Jul 26, 2016 10:42
--- NOTE | 2016-07-26 11:03 | HHI.FF ---
Face to Face Verification Diagnosis: (1) Hyperlipidemia (2) CAD (coronary artery disease), [place] coronary artery (3) Carotid stenosis, right (4) CVA (cerebral vascular accident) (5) Ischemic cardiomyopathy (6) S/P CABG x 4 (7) Tobacco abuse (8) Newly diagnosed diabetes Physical Therapy Order: Evaluate and Treat Home Health Nursing Order: Signs/symptoms of disease process Diabetic education CHF education Wound care and dressing changes Nursing assessment with vital signs Instructions: Heart and Vascular Surgery patients *Special attention to sternal dressing Mandatory frequency Assess and evaluation, 4 days in a row The next week 3X week 2 times a week for 4 weeks 1 time a week for 5 weeks Schedule Heart and Vascular patients for full 60 day certification period Initial visit Review Open Heart Surgery Discharge Instructions (Sternal precautions, Activity, Elastic hose, Incision care, Driving, Incentive spirometry, Smoking, [place], Work and other) Need Betadine to paint incision Medication reconciliation Importance of follow up care/ check on appointments Make calendar record temperature daily When to call [facility] nurse, review instructions, phone list Incentive Spirometry, demonstration Visit 1- Begin discharge instruction for patient family and/ or caregiver using teach back method- Signs and symptoms of infection Disease characteristics Medicines and side effects Foods and nutrition/ appetite Infection control/ hand washing/ hygiene Visit 2- Continue teaching Discharge instructions- include additional information on smoking cessation , sternal dressing (sternal vac) Visit 3- Continue teaching- Cough and deep breathing, incision monitoring. Choose my plate Visit 4- Continue teaching- Discuss limitations Discuss how they are feeling Discuss progress toward goals Remaining visits- continue teaching and monitoring Single Use Negative Wound Therapy System Caregiver Instruction Sheet 1. A Prevena dressing system was applied to the chest incision during surgery , to promote wound healing. It works via a suction device (negative pressure wound therapy) to remove low to moderate levels of exudate (drainage) and infectious materials. We recommend that the device stay in place for up to seven days, from day of surgery. 2. Day of Surgery_07/23/16 Day of Removal ___07/30/16 3. The dressing should only be removed by a health critical care specialist. Please arrange removal of device to coincide with Home Health visit and or with Nursing staff at Rehab 4. If skin reddening or irritation of skin occurs, or excessive drainage, please notify the Cardiovascular Surgeons office at [phone]. 5. Light showering is permissible; however the pump should be disconnected and placed in safe location, where it will not get wet. The dressing should not be exposed to direct spray or submerged in water. No bath tub / shower only. Ensure the end of the tubing attached to the dressing is facing down so that water does not enter the top of the tube. 6. To remove Prevena dressing: press purple button to turn off device / remove the suction. Then disconnect the tubing from the pump. The fixation strips should be stretched away from the skin and the dressing lifted at one corner and peeled back until it has been fully removed. 7. After removal, it is ok to shower daily using liquid dial soap and clean wash cloth, rinse and pat dry, and leave incision open to air dry. For any concerns regarding Prevena dressing, and or wounds, please contact Preeti Garcia, patient navigator at [phone] or notify the Cardiovascular Surgeons office at [phone]. Incentive spirometry Q1 hr x 10, while awake, also use acapella device hourly whole awake Sternal Breast Bone Precautions: NO pushing or pulling, ( pt must use sternal pillow to support chest with all activities and with coughing ( takes up to 3 months breast bone to heal ) All females to wear sternal bra , launder as needed Daily incision care: ok to shower daily, no tub bath. Wash all incisions with liquid dial soap, clean wash cloth to each site, rinse and pat dry. Observe for any signs of infection, such as drainage which is dark yellow, abad, green or foul smelling. Immediately report to the surgeon any drainage from the chest incision, or legs, and for any abnormal drainage from the chest tube sites. Notify surgeon if any temp >101.5 degrees F. When specialty dressing removed/ or if you do not have one, continue to shower daily as above, then rinse and pat incision dry and paint with betadine daily x 5 days. Allow steri strips to fall off if you have any. Avoid lotions, creams, salves, oils, etc. for the first month Please see attached forms for additional instructions regarding post Open Heart specialty wound vacuum dressings. RAMESH or Prevena , Dressing to be removed by Nursing staff on ___07/30/16____ F/U appointment: as per DC instructions: PCP in 2 weeks, CV surgeon 2 weeks, Sales Administration Manager 3-4 weeks For any questions regarding incisions/ dressing / meds / post op care or above Symptoms, Tuesday 8am-5pm Heart & Vascular Surgery Office ( Dr. Concepcion & Dr. Garg), After Hours / Nights (5pm -8am) Weekends and Holidays Please call [facility] ([facility]) Charge Nurse I have seen patient Adolfo Boggs on 07/26/16. My clinical findings support the need for the requested home health care services because: Deconditioned w/ increased weakness I certify that my clinical findings support that this patient is homebound because: Post-op weakness Marzena Montano Jul 26, 2016 11:03
[2016-07-26] MEDS: metFORMIN HCL 500 MG TAB PO SCH ×2 (11:53→18:10)
[2016-07-26] MEDS: LISINOPRIL 5 MG TAB PO SCH (11:53)
[2016-07-26] MEDS: BUDESONIDE-FORMOTEROL 160/4.5 MCG INHALER INH SCH (20:32)
[2016-07-26] MEDS: ATORVASTATIN 10 MG TAB PO SCH (20:33)
[2016-07-26] MEDS: SENNOSIDES 8.6 MG TAB PO SCH (20:34)
[2016-07-26] MEDS ORDERED: INSULIN DETEMIR 100 UNITS/ML VIAL SQ SCH (21:00)
[2016-07-27] VITALS (11 sets, daily range): BP systolic 112–162; BP diastolic 63–87; PULSE 66–97; RESP 17–20; TEMP 97.9–98.5; O2SAT 93–97
[2016-07-27] MEDS: PANTOPRAZOLE SOD 40 MG DELAYED RELEASE TAB PO SCH (04:42)
[2016-07-27] MEDS: INSULIN ASPART SUPPLEMENTAL SCALE SQ SCH ×2 (07:00→12:19)
[2016-07-27] MEDS: ACETAMINOPHEN/HYDROcodone 325 MG/5 MG TAB PO PRN ×2 (07:57→14:58)
[2016-07-27] MEDS: DOCUSATE SODIUM 100 MG CAP PO SCH (07:58)
[2016-07-27] MEDS: MULTIVITAMINS/MINERALS THERAPEUTIC TAB PO SCH (07:58)
[2016-07-27] MEDS: CLOPIDOGREL 75 MG TAB PO SCH (07:59)
[2016-07-27] MEDS: AMIODARONE 200 MG TAB PO SCH (07:59)
[2016-07-27] MEDS: ASPIRIN 81 MG CHEW TAB PO SCH (07:59)
[2016-07-27] MEDS: MAGNESIUM HYDROXIDE SUSP 30 ML CUP PO SCH (08:00)
[2016-07-27] MEDS: LISINOPRIL 5 MG TAB PO SCH (08:00)
[2016-07-27] MEDS: BUDESONIDE-FORMOTEROL 160/4.5 MCG INHALER INH SCH (08:00)
[2016-07-27] MEDS: POLYETHYLENE GLYCOL 17 GM PKG PO SCH (08:00)
[2016-07-27] MEDS: metFORMIN HCL 500 MG TAB PO SCH (08:04)
[2016-07-27] MEDS ORDERED: POTASSIUM CHLORIDE 20 MEQ CONTROLLED RELEASE TAB PO ONE (08:30)
[2016-07-27] MEDS ORDERED: FUROSEMIDE 40 MG TAB PO ONE (08:30)
[2016-07-27] MEDS ORDERED: METOPROLOL TARTRATE 50 MG TAB PO SCH (09:00)
[2016-07-27] MEDS ORDERED: AMIO200T PO (09:55)
[2016-07-27] MEDS ORDERED: DOCU1CAP39 PO (09:55)
[2016-07-27] MEDS ORDERED: THERM PO (09:58)
--- NOTE | 2016-07-27 10:06 | HHI.DS ---
Discharge Summary Admission Date Jul 23, 2016 at 05:11 Discharge Date: Jul 27, 2016 Admitting Diagnosis chest pain, CAD (1) DM (diabetes mellitus) Diagnosis: [place] (2) CAD (coronary artery disease), [place] coronary artery Diagnosis: [place] (3) Tobacco abuse Diagnosis: [place] (4) CVA (cerebral vascular accident) Diagnosis: [place] (5) S/P CABG x 4 Diagnosis: Secondary (6) Ischemic cardiomyopathy Diagnosis: Secondary Procedures 1. Off-pump Coronary Artery Bypass Grafting x 4 with left internal mammary artery (JACOBSEN) to left anterior descending (LAD), reverse saphenous vein graft to the Diagonal 1, reverse saphenous vein graft to the OM1, reverse saphenous vein graft to the OM2 2. Right Leg Endoscopic Vein [place] 07/23 Brief History 66/ MALE + recent stress test , also recent Left hemispheric stroke with Right ICA stenosis , was scheduled for R CEA with Dr Cage , cath Left main disease and high grade ostial circ disease PMH: CM EF 35% CVA, carotid stenosis , HTN, tobacco abuse, alcohol abuse , DM, HLP 07/23 Surgical Procedure 1. Off-pump Coronary Artery Bypass Grafting x 4 with left internal mammary artery (JACOBSEN) to left anterior descending (LAD), reverse saphenous vein graft to the Diagonal 1, reverse saphenous vein graft to the OM1, reverse saphenous vein graft to the OM2 2. Right Leg Endoscopic Vein [place] 3. Intraoperative Vein Mapping. CBC/BMP: 07/25/16 0533 07/27/16 0512 Significant Findings Laboratory Tests Test 07/25/16 07/27/16 05:33 05:12 White Blood Count 13.5 TH/MM3 (4.0-11.0) Red Blood Count 3.27 MIL/MM3 (4.50-5.90) Hemoglobin 9.7 GM/DL (13.0-17.0) Hematocrit 28.4 % (39.0-51.0) Neutrophils (%) (Auto) 82.3 % (16.0-70.0) Lymphocytes (%) (Auto) 6.4 % (9.0-44.0) Monocytes (%) (Auto) 10.5 % (0.0-8.0) Neutrophils # (Auto) 11.1 TH/MM3 (1.8-7.7) Lymphocytes # (Auto) 0.9 TH/MM3 (1.0-4.8) Monocytes # (Auto) 1.4 TH/MM3 (0-0.9) Blood Urea Nitrogen 22 MG/DL (7-18) 22 MG/DL (7-18) Estimat Glomerular Filtration 59 ML/MIN (>89) 71 ML/MIN (>89) Rate Random Glucose 124 MG/DL (74-106) Calcium Level 8.3 MG/DL 8.3 MG/DL (8.5-10.1) (8.5-10.1) Magnesium Level 2.7 MG/DL (1.5-2.5) Imaging Last Impressions Chest X-Ray 07/24/16 0500 Signed Impressions: Service Date/Time: Sunday, July 24, 2016 04:45 - CONCLUSION: 1. Stable scattered atelectasis in the left lung. 2. Cardiomegaly. 3. No pneumothorax. Mike Portillo Jr., MD PE at Discharge GENERAL: SKIN: Warm and dry.prevena to chest / incision intact to right leg HEAD: Normocephalic. EYES: No scleral icterus. No injection or drainage. NECK: Supple, trachea midline. No JVD or lymphadenopathy. CARDIOVASCULAR: Regular rate and rhythm without murmurs, gallops, or rubs. RESPIRATORY: Breath sounds equal bilaterally. No accessory muscle use. GASTROINTESTINAL: Abdomen soft, non-tender, nondistended. MUSCULOSKELETAL: No cyanosis, or edema. BACK: Nontender without obvious deformity. No CVA tenderness. Hospital Course 07/24 Doing well Incisional pain Restart beta ran Maintain CT Transfer CIC 07/25 Doing well Ambulate this am and likely D/C CT later today Discharge planning 07/26 doing well eval for dc in am increase BB 07/27 stable for discharge/ will leave prevena dressing in place to chest dc on Losartan ( pt own med for EF 35% ) Pt Condition on Discharge: Good Discharge Disposition: Disch w/ Home Health Serv Discharge Instructions DIET: Follow Instructions for: Heart Healthy Diet, Diabetic Diet Activities you can perform: Full Weight Bearing, Shower Only-No Bath Activities to avoid: Lifting/Bending, Strenuous Activity, Driving Additional Activity Instructio: no lifting > 10 lbs or gallon of milk Follow up Referrals: Appointment for Follow Up Appointment for Follow Up Appointment for Follow Up New Medications: Amiodarone (Amiodarone) 200 Mg Tab 200 MG PO Q12HR heart rythm #28 Ref 0 TAB Docusate Sodium (Dok) 100 Mg Cap 100 MG PO BID Constipation #60 CAP Multiple Vitamins W/ Minerals (Thera M Plus) 1 Tab 1 TAB PO DAILY PRN multi vitamin Days 1 TAB Continued Medications: Aspirin DR (Aspirin EC) 81 Mg Tabdr 81 MG PO DAILY Prevent Blood Clot #30 Ref 3 TAB Atorvastatin (Lipitor) 10 Mg Tab 10 MG PO HS Cholesterol Management #30 Ref 3 TAB Budesonide-Formoterol Inh (Symbicort Inh) 160-4.5 Mcg/Act Aero 2 PUFF INH Q12HR Ref 0 INHALER Clopidogrel (Plavix) 75 Mg Tab 75 MG PO DAILY Prevent Blood Clot #30 Ref 3 TAB Fluticasone-Vilanterol Inh (Breo Ellipta Inh) 100-25 Mcg/Act Inh 1 PUFF INH DAILY Use daily at the same time. #1 Ref 0 INHALER Insulin Aspart Inj (Novolog Inj) 100 Unit/Ml Inj 10 UNITS SQ BIDAC before Bf and dinner Blood Sugar Management #1000 Ref 3 INJECTION Insulin Detemir Inj (Levemir Inj) 1,000 unit/ 10 ML Vial 20 UNITS SQ HS Blood Sugar Management #1000 Ref 2 INJECTION Losartan (Losartan) 50 Mg Tab 50 MG PO DAILY Blood Pressure Management #30 Ref 0 TAB Metformin (Metformin) 1,000 Mg Tab 1000 MG PO BIDPC With meals Blood Sugar Management #60 Ref 3 TAB Metoprolol Tartrate (Metoprolol Tartrate) 100 Mg Tab 100 MG PO BID #60 Ref 3 TAB Marzena Montano Jul 27, 2016 10:06
[2016-07-27] MEDS ORDERED: NORC5TAB PO (14:03)
[2016-08-11] MEDS ORDERED: ACAR50TA PO ×2 (09:06→09:08)
== END 2016-07-27 15:41 | disposition home health service (06) | DRG 236 ==
LOC: HSDI 07-23 05:11 → HCVR 07-23 12:35 → HCIN 07-24 14:26
PROVIDERS: ADMIT Thoracic Surgery (Cardiothoracic Vascular Surgery); ATTEND Thoracic Surgery (Cardiothoracic Vascular Surgery)
PROC: 06BP4ZZ Excision of Right Saphenous Vein, Percutaneous Endoscopic Approach (ICD-10-PCS; 2016-07-23)
PROC: 02100Z9 Bypass Coronary Artery, One Artery from Left Internal Mammary, Open Approach (ICD-10-PCS; principal; 2016-07-23 07:02)
PROC: 021209W Bypass Coronary Artery, Three Arteries from Aorta with Autologous Venous Tissue, Open Approach (ICD-10-PCS; 2016-07-23 07:02)
DX: I25.10 Atherosclerotic heart disease of native coronary artery without angina pectoris (principal); I65.21 Occlusion and stenosis of right carotid artery; I10 Essential (primary) hypertension; E78.5 Hyperlipidemia, unspecified; I25.5 Ischemic cardiomyopathy; E11.9 Type 2 diabetes mellitus without complications; F17.210 Nicotine dependence, cigarettes, uncomplicated; Z86.73 Personal history of transient ischemic attack (TIA), and cerebral infarction without residual deficits; Z79.4 Long term (current) use of insulin
CPT/HCPCS: 36430; 71010; 76937; 80048; 82948; 83735; 84132; 85014; 85025; 85027; 86850; 86900; 86901; 86920; 93005; 94002; 94150; 94640; 94664; 94667; 94668; C1768; J0131; J0690; J1644; J1815; J1885; J2250; J2270; J2720; J3010; J3370; J3475; J3480; J7040; J7120; P9016; P9045

== ENCOUNTER → 2016-09-23 | Outpatient (CLI) | payer MEDICARE, OTHER ==
[~2016-09-23] MED LIST changes: +ACAR50TA PO; +AMIO200T PO; +DOCU1CAP39 PO; -FLUT1INH INH; -LEVEMIR SQ; +NORC5TAB PO; -NOVOLOGSS SQ; +SYMB160A INH; +THERM PO
[2016-09-23 12:01] LABS: AUTOMATED NEUTROPHIL # 8.2 TH/MM3 (1.8-7.7); BASOPHIL # 0.1 TH/MM3 (0-0.2); BASOPHIL % 0.5 % (0.0-2.0); EOSINOPHIL # 0.4 TH/MM3 (0-0.4); EOSINOPHIL % 3.2 % (0.0-4.0); HEMATOCRIT 41.8 % (39.0-51.0); HEMO FLAGS DIFF FINAL; LYMPHOCYTE # 1.6 TH/MM3 (1.0-4.8); MEAN CELL VOLUME 83.7 FL (80.0-100.0); MEAN CORPUSCULAR HEMOGLOBIN 27.8 PG (27.0-34.0); MEAN CORPUSCULAR HGB CONC 33.2 % (32.0-36.0); MONO % 9.3 % (0.0-8.0); PLATELET COUNT 272 TH/MM3 (150-450); RED CELL DISTRIBUTION WIDTH 15.9 % (11.6-17.2); WHITE BLOOD COUNT 11.2 TH/MM3 (4.0-11.0)
[2016-09-23 12:07] LABS: APTT (PATIENT) 29.3 SEC (24.3-30.1); PROTHROMBIN TIME - PATIENT 10.7 SEC (9.8-11.6)
[2016-09-23 12:12] LABS: BLOOD, URINE NEG (NEG); COMMENT (UR) CULT NOT INDICATED; CULTURE IF INDICATED CULT NOT INDICATED; GLUCOSE,URINE NEG (NEG); KETONE, URINE NEG (NEG); MUCUS URINE FEW /lpf (OCC); NITRITE,URINE NEG (NEG); PH, URINE 5.5 (5.0-8.5); URINE COLOR DARK-YELLOW (YELLW/STRAW)
--- NOTE | 2016-09-23 12:15 | RADRPT ---
EXAM DATE/TIME: 09/23/2016 11:57 [facility] COMPARISON: CHEST PA & LAT, July 12, 2016, 18:22. INDICATIONS : Evaluate for pneumonia, pneumothorax or communicable disease. Pre op for right carotid artery surgery . MEDICAL HISTORY : Stroke. diabetic SURGICAL HISTORY : CABG. ENCOUNTER: Initial ACUITY: 1 day PAIN SCORE: 0/10 LOCATION: Bilateral chest FINDINGS: PA and lateral views of the chest demonstrate a normal-sized cardiac silhouette. Patient is post medi an sternotomy. There is no effusion, consolidation, or pneumothorax. The bones and soft tissues demon strate no acute abnormality. There are degenerative changes of the spine. CONCLUSION: No acute cardiopulmonary abnormality is identified. Efrem Clinton MD on September 23, 2016 at 12:11 Board Certified Radiologist. This report was verified electronically.
[2016-09-23 12:20] LABS: BICARBONATE 28.5 MEQ/L (21.0-32.0)
--- NOTE | 2016-09-23 15:25 | EKG ---
Date Performed: 09/23/2016 Time Performed: 11:17:27 PTAGE: 66 years EKG: Sinus rhythm POSSIBLE LEFT ATRIAL ENLARGEMENT INFERIOR MYOCARDIAL INFARCTION, PROBABLY OLD MODERATE T-WAVE ABNORM ALITY, CONSIDER LATERAL ISCHEMIA Compared to previous tracing, there has been improvement in the infe rolateral ST elevation ABNORMAL ECG NO PREVIOUS TRACING DOCTOR: Linda Crooks Interpretating Date/Time 09/23/2016 15:24:45
== END ==
LOC: CPRE 10:53
PROVIDERS: ATTEND Surgery
DX: Z01.812 Encounter for preprocedural laboratory examination (principal); Z01.810 Encounter for preprocedural cardiovascular examination; Z01.811 Encounter for preprocedural respiratory examination; I65.23 Occlusion and stenosis of bilateral carotid arteries; R94.31 Abnormal electrocardiogram [ECG] [EKG]
CPT/HCPCS: 36415; 71020; 80048; 81001; 85025; 85610; 85730; 93005

== ENCOUNTER 2017-09-06 12:03 | Emergency (ER) | payer MEDICARE, OTHER ==
[~2017-09-06] VITALS: Ht 182.9 cm; Wt 90.0 kg
[~2017-09-06 12:03] MED LIST changes: -AMIO200T PO; -ASPI81TA11 PO; +ASPI81TA23 PO; +ATOR40TA16 PO; -BLOOD GLUCOSE M1 KIT; -BLOOD GLUCOSE T1 TES; +CIAL5TAB PO; -DOCU1CAP39 PO; -INSU-119; -INSU-126; -LANCETS1 MI1; -LIPI10TA PO; -NORC5TAB PO; -PLAV75TA29 PO; -SYMB160A INH; -glucometer
[2017-09-06 12:10] VITALS: BP 181/90; PULSE 77; RESP 18; TEMP 97.7; O2SAT 97
--- NOTE | 2017-09-06 12:24 | PD ---
HPI Chief Complaint: Injury Time Seen by Provider: 12:15 Travel History International Travel<30 days: No Contact w/Intl Traveler<30days: No Traveled to known affect area: No History of Present Illness HPI 67-year-old male presents emergency department 3 days status post trip and fall in a local parking lot. Patient states he landed on his right shoulder. He now has pain in the right shoulder limited range of motion secondary to pain. He states he has bruising on the inner upper arm on the right. Pain is localized to the right anterior and lateral shoulder. Patient states overall otherwise he is achy but is able to function. This occurred 3 days prior to this visit. He is just here to get "checked out". Patient denies hitting his head or loss of consciousness. Denies neck pain. Pain is stated to be 8 out of 10. He has no known drug allergies. PFSH Past Medical History Hx Anticoagulant Therapy: Yes Arthritis: No Asthma: No Autoimmune Disease: No Anxiety: No Depression: No Heart Rhythm Problems: No Cancer: No Cardiovascular Problems: Yes High Cholesterol: No Chemotherapy: No Chest Pain: No Congestive Heart Failure: No COPD: No Cerebrovascular Accident: Yes (May 2016) Diabetes: Yes Endocrine: Yes Gastrointestinal Disorders: No GERD: No Glaucoma: No Genitourinary: No Hepatitis: No Hiatal Hernia: No Hypertension: No Immune Disorder: No Kidney Stones: No Musculoskeletal: No Neurologic: No Psychiatric: No Reproductive: No Respiratory: Yes (COPD) Integumentary: Yes Migraines: No Radiation Therapy: No Renal Failure: No Seizures: No Sickle Cell Disease: No Sleep Apnea: No Thyroid Disease: No Ulcer: No Past Surgical History Abdominal Surgery: Yes (hernia INGUNAL) AICD: No Arteriovenous Shunt: No Body Medical Devices: STERNAL WIRES Cardiac Surgery: Yes (CABG X4 july 2016) Ear Surgery: No Endocrine Surgery: No Eye Surgery: No Genitourinary Surgery: No Gynecologic Surgery: No Insulin Pump: No Joint Replacement: No Oral Surgery: No Pacemaker: No Thoracic Surgery: No Other Surgery: Yes Social History Alcohol Use: Yes (2-3 vodka drinks/daily) Tobacco Use: Yes (1 ppd) Substance Use: Yes (marijuana, 1 week ago) Allergies-Medications (Allergen,Severity, Reaction): Coded Allergies: No Known Allergies (Unverified Adverse Reaction, Unknown, 09/06/17) Reported Meds & Prescriptions Reported Meds & Active Scripts Active Acarbose 50 Mg Tab 50 Mg PO TID Cialis (Tadalafil) 5 Mg Tab 5 Mg PO DAILY Do not exceed 1 dose/day. Metoprolol Tartrate 100 Mg Tab 100 Mg PO BID Metformin (Metformin HCl) 1,000 Mg Tab 1,000 Mg PO BIDPC With meals Atorvastatin (Atorvastatin Calcium) 40 Mg Tab 40 Mg PO HS Thera M Plus (Multivitamins/Minerals Therapeutic) 1 Tab 1 Tab PO DAILY PRN 1 Days Aspirin EC (Aspirin) 81 Mg Tabdr 81 Mg PO DAILY Review of Systems Except as stated in HPI: all other systems reviewed are Neg General / Constitutional: No: Fever Eyes: No: Visual changes HENT: No: Headaches Cardiovascular: No: Chest Pain or Discomfort Respiratory: No: Shortness of Breath Gastrointestinal: No: Abdominal Pain Genitourinary: No: Dysuria Musculoskeletal: Positive: Arthralgias, Limited ROM, Pain (See history of present illness per) Skin: No Rash Neurologic: No: Weakness Psychiatric: No: Depression Endocrine: No: Polydipsia Hematologic/Lymphatic: No: Easy Bruising Physical Exam Narrative GENERAL: Patient appears in mild to moderate distress SKIN: Warm and dry. Normal color. Normal turgor. Patient is noted to have some old bruising to the inner right upper arm. He has no open wounds or abrasions HEAD: Atraumatic. Normocephalic. Nontender. EYES: Pupils equal and round. No scleral icterus. No injection or drainage. ENT: No nasal bleeding or discharge. Mucous membranes pink and moist. No dental injury. Pharynx is clear. Airways patent. NECK: Trachea midline. No bony tenderness or step-off. Range of motion is full and nontender. CARDIOVASCULAR: Regular rate and rhythm. RESPIRATORY: No accessory muscle use. Clear to auscultation. Breath sounds equal bilaterally. GASTROINTESTINAL: Abdomen soft, non-tender, nondistended. Hepatic and splenic margins not palpable. MUSCULOSKELETAL: Extremities without clubbing, cyanosis, or edema. No obvious deformities. Patient has pain with mild crepitus in the right shoulder, with limited range of motion secondary to pain. There is no obvious loss of function. No signs of dislocation. The clavicle and acromion is nontender with palpation. Neurovascular exam distally in the right arm is normal. Normal shackler strength is noted NEUROLOGICAL: Awake and alert. No obvious cranial nerve deficits. Motor grossly within normal limits. Five out of 5 muscle strength in the arms and legs. Normal speech. PSYCHIATRIC: Appropriate mood and affect; insight and judgment normal. Data Data Last Documented VS Vital Signs Date Time Temp Pulse Resp B/P (MAP) Pulse Ox O2 Delivery O2 Flow Rate FiO2 09/06/17 12:10 97.7 77 18 181/90 (120) 97 Orders Orders Shoulder, Complete (>2vws) (09/06/17 12:17) Ice/Cold Pack (09/06/17 12:17) [facility] Medical Decision Making Medical Screen Exam Complete: Yes Emergency Medical Condition: Yes Differential Diagnosis Trip and fall. Right shoulder contusion. Right shoulder strain. Tendinitis. Fracture. Dislocation. Narrative Course Patient is medically stable at time of exam. X-ray of the right shoulder is ordered. X-ray shows no acute process. There is significant arthrosis. Patient will be treated with a prednisone Dosepak as prescribed. Patient should ice the area frequently. Patient is given Lortab 5/325 1 every 6 hours as needed pain #20 Patient to follow-up with local orthopedist if symptoms continue. Diagnosis Primary Impression: Tendinitis of right shoulder Referrals: Ruben Young MD as needed Patient Instructions: General Instructions, Rotator Cuff Tendinitis (ED) Additional Instructions: X-ray shows no acute process. There is significant arthrosis. Patient will be treated with a prednisone Dosepak as prescribed. Patient should ice the area frequently. Patient is given Lortab 5/325 1 every 6 hours as needed pain #20 Patient to follow-up with local orthopedist if symptoms continue. Med/Other Pt SpecificInfo: Prescription(s) given Scripts Hydrocodone-Acetaminophen (Hydrocodone-Acetaminophen) 5-325 mg Tab 1 TAB PO Q6H Y for PAIN, #20 TAB 0 Refills Prov: Collins Orozco MD 09/06/17 Prednisone (48) 10 mg tab Dose Pack (Prednisone (48) 10 mg tab Dose Pack) 10 Mg Dspk 10 MG PO DIRECTED for Inflammation, #1 DSPK 0 Refills Prov: Collins Orozco MD 09/06/17 Disposition: 01 DISCHARGE HOME Condition: Stable Henrique Hernandez Sep 06, 2017 12:24
[2017-09-06] MEDS ORDERED: PRED10PA2 PO (13:24)
[2017-09-06] MEDS ORDERED: HYDR-3516 PO (13:24)
[2017-09-06] MEDS ORDERED: AMOX875T PO (13:41)
--- NOTE | 2017-09-06 13:57 | RADRPT ---
EXAM DATE: 09/06/2017 1:22 PM EDT AGE/SEX: 67 years / Male INDICATIONS: Right shoulder pain after fall. CLINICAL DATA: This is the patient's initial encounter. Patient reports that signs and symptoms have been present for 2 days and indicates a pain score of 10/10. MEDICAL/SURGICAL HISTORY: None. None. COMPARISON: No prior [place] exams available for comparison. FINDINGS: Bony structures are intact and in normal alignment. Joints are intact without dislocation or signifi cant arthropathy. Osseous density is normal. Soft tissues are unremarkable. No radiopaque foreign bodies seen. CONCLUSION: Negative examination Electronically signed by: Leroy Bradshaw MD 09/06/2017 1:56 PM EDT
== END 2017-09-06 13:58 | disposition home or self-care (01) ==
LOC: NEPK 12:03
DX: M75.91 Shoulder lesion, unspecified, right shoulder (principal); W01.0XXA Fall on same level from slipping, tripping and stumbling without subsequent striking against object, initial encounter; Y92.481 Parking lot as the place of occurrence of the external cause; M19.011 Primary osteoarthritis, right shoulder; E11.9 Type 2 diabetes mellitus without complications; J44.9 Chronic obstructive pulmonary disease, unspecified; Z86.73 Personal history of transient ischemic attack (TIA), and cerebral infarction without residual deficits; F17.200 Nicotine dependence, unspecified, uncomplicated; F12.90 Cannabis use, unspecified, uncomplicated
CPT/HCPCS: 73030; 99283